=== PATIENT | male | born 1960 | race Caucasian/White ===

== ENCOUNTER 2019-02-28 15:55 | Outpatient (CLI) | payer OTHER ==
[2019-02-28 18:04] LABS: ALT (SGPT) 20 U/L (8-55); AST (SGOT) 14 U/L (5-34); Albumin 4.5 g/dL (3.5-5.0); Alkaline Phosphatase 127 U/L (40-150); Bilirubin, Direct 0.1 mg/dL (0.1-0.3); Bilirubin, Total 0.3 mg/dL (0.2-1.2); Protein, Total 7.2 g/dL (6.0-8.3)
== END 2019-02-28 15:56 | disposition home or self-care (01) ==
LOC: LABBT 15:55
PROVIDERS: ATTEND Surgery
DX: Z01.818 Encounter for other preprocedural examination (principal); K80.20 Calculus of gallbladder without cholecystitis without obstruction
CPT/HCPCS: 80076; 93005; 93010

== ENCOUNTER 2019-03-01 10:53 | Day surgery (SDC) | payer OTHER ==
[2019-02-28 16:20] VITALS: BMI 24.5
[2019-03-01] MEDS ORDERED: Sodium Chloride 0.9% 100 ML ONE (11:15)
[2019-03-01] MEDS ORDERED: cefOXitin 2 GM VIAL ONE (11:15)
[2019-03-01] MEDS ORDERED: Bupivacaine/Epinephrine 0.25% 30 ML VIAL ONE (11:35)
[2019-03-01] MEDS ORDERED: Fentanyl 100 MCG/2 ML VIAL ONE ×2 (13:19→14:28)
--- NOTE | 2019-03-01 13:41 | OP ---
DATE OF PROCEDURE: 03/01/2019 PREOPERATIVE DIAGNOSIS: Symptomatic cholelithiasis. PROCEDURE PERFORMED: Laparoscopic cholecystectomy. INDICATIONS: A 58-year-old male, having episodic right upper quadrant pain worse after eating, especially fatty food. Ultrasound shows sludge ball. FINDINGS: He had a distended gallbladder with some thickening of the wall, small caliber cystic duct. DESCRIPTION OF PROCEDURE: After informed consent was obtained, the patient was taken to the operating room, given general endotracheal anesthesia, placed in the supine position. Abdomen was prepped and draped in usual fashion. Local anesthesia infiltrated subcutaneously and deep. A subumbilical incision was performed. Subcu divided sharply. Fascia was grasped with 2 stay sutures of 0 Vicryl placed in each side of midline. Midline incised. Digital palpation revealed no local adhesions. A blunt 12 mm trocar inserted. Pneumoperitoneum was created to a pressure of 15 mmHg. Zero-degree laparoscope inserted under direct vision. Three 5 mm ports were placed subcostally. Gallbladder grasped, advanced superiorly. Peritoneum lysed distally to reveal cystic duct and artery. These were dissected out, triply ligated with hemoclips and divided. The gallbladder removed from its fossa utilizing electrocautery, removed from the abdomen through the umbilical port. Hemostasis assured. Trocars and retractors removed. Fascia closed with interrupted 0 Vicryl suture. Skin closed with interrupted 4-0 Rapide. Dermabond applied. The patient tolerated the procedure well, transferred to Recovery in good condition. Sponge and needle count verified, correct x2. Job ID: [id number]
== END 2019-03-01 15:20 | disposition home or self-care (01) ==
LOC: SDC 10:53
PROVIDERS: ATTEND Surgery
PROC: 0FT44ZZ Resection of Gallbladder, Percutaneous Endoscopic Approach (ICD-10-PCS; principal; 2019-03-01)
DX: K81.1 Chronic cholecystitis (principal); J45.909 Unspecified asthma, uncomplicated; K21.9 Gastro-esophageal reflux disease without esophagitis; Z85.46 Personal history of malignant neoplasm of prostate; Z87.891 Personal history of nicotine dependence; Z79.82 Long term (current) use of aspirin; Z79.899 Other long term (current) drug therapy
CPT/HCPCS: 88304; J0694; J3010; J3490

== ENCOUNTER 2019-04-22 11:56 | Inpatient (IN) | payer SELFPAY ==
[2019-04-22] MEDS ORDERED: Iopamidol 370 76% 100 ML VIAL ONE (13:03)
--- NOTE | 2019-04-22 13:35 | RAD ---
EXAM: Chest 2 views: HISTORY: 30 pound weight loss and lethargy for 6 weeks COMPARISON: 02/26/2019 FINDINGS: There is a normal-sized cardiomediastinal silhouette. There is no evidence of consolidation, mass, or pleural effusion. Hardware is seen in the cervical spine. IMPRESSION: No evidence of acute cardiopulmonary disease
[2019-04-22 13:36] LABS: #Basophils 0.3 thou/uL (0.0-0.2); #Eosinphils 0.1 thou/uL (0.0-0.7); #Lymphocytes 1.1 thou/uL (1.20-3.40); #Monocytes 0.9 thou/uL (0.11-0.59); #Neutrophils 9.2 thou/uL (1.40-6.50); %Basophils 2.8 % (0.0-1.0); %Eosinophils 0.9 % (0.0-10.0); %Lymphocytes 9.3 % (21.0-51.0); %Monocytes 7.5 % (0.0-10.0); %Neutrophils 79.5 % (42.0-75.0); Hemoglobin 13.3 g/dL (14.0-18.0); Mean Corpuscular HGB CONC 34.4 g/dL (32.0-36.0); Mean Corpuscular Hemoglobin 29.3 pg (27.0-31.0); Mean Corpuscular Volume 85.3 fL (78.0-98.0); Mean Platelet Volume 7.9 fL (7.4-10.4); Platelet Count 232 thou/uL (130-400); RBC Distribution Width 12.2 % (11.5-14.5); Red Blood Cell (RBC) Count 4.54 mill/uL (4.70-6.10); White Blood Cell (WBC) Count 11.6 thou/uL (4.8-10.8)
[2019-04-22 14:20] LABS: ALT (SGPT) 37 U/L (8-55); AST (SGOT) 22 U/L (5-34); Albumin 3.8 g/dL (3.5-5.0); Alkaline Phosphatase 565 U/L (40-150); Anion Gap 23 mmol/L (10-20); BUN (Urea Nitrogen) 18 mg/dL (8.4-25.7); Bilirubin, Total 0.3 mg/dL (0.2-1.2); CK (CPK) 27 U/L (30-200); Calc. Creatinine Clearance 0 mL/min (70-130); Calcium 10.3 mg/dL (7.8-10.44); Carbon Dioxide 15 mmol/L (22-29); Chloride 95 mmol/L (98-107); Estimated GFR-MDRD 72; Glucose 438 mg/dL (70-105); Lipase 60 U/L (8-78); Magnesium 1.8 mg/dL (1.6-2.6); Protein, Total 6.8 g/dL (6.0-8.3); Sodium 128 mmol/L (136-145)
[2019-04-22 14:41] LABS: CKMB 1.1 ng/mL (0-6.6)
[2019-04-22 15:13] LABS: Bilirubin Small (Negative); Blood, Urine Negative (Negative); Glucose, Urine (Dipstick) 500 mg/dL (Negative); Leukocyte Negative (Negative); Nitrite Negative (Negative); Protein, Urine (Dipstick) Negative (Neg-Trace); Urobilinogen 0.2 mg/dL (Less than 2)
[2019-04-22 15:14] LABS: Clarity Hazy (Clear)
--- NOTE | 2019-04-22 15:25 | CT ---
EXAM: CTA of the chest HISTORY: Gallbladder surgery 6 weeks ago with shortness of breath and elevated d-dimer COMPARISON: None TECHNIQUE: Multiple contiguous axial images were obtained a CTA of the chest with contrast per pulmon abel embolism protocol. 3-D oblique MIP reformats and direct coronal reformats were performed. FINDINGS: HEART: Normal in size without focal cardiac abnormality. No shift of the interventricular septum is s een. PULMONARY ARTERIES: Bilateral lower lobe pulmonary artery emboli. MEDIASTINUM: No hilar or mediastinal lymphadenopathy. LUNGS: No infiltrates are seen. A noncalcified 4 mm nodule is seen in the right upper lobe. A calcifi ed granuloma is seen in the left lower lobe. PLEURAL SPACE: No pleural effusion or pneumothorax. CHEST WALL SOFT TISSUES: Unremarkable VISUALIZED OSSEOUS STRUCTURES: Unremarkable VISUALIZED SUBDIAPHRAGMATIC STRUCTURES: Multiple scattered hypodensities in the liver are suspicious for metastatic disease. Alternatively, these could represent multifocal abscesses in the liver. There is a right renal cyst. There is hyperplasia of both adrenal glands. IMPRESSION: 1. Bilateral pulmonary emboli. 2. Multiple hepatic hypodensities are concerning for metastatic disease. Dr. Kauffman notified of findings at 3:22 PM on 04/22/2019
[2019-04-22 15:42] LABS: PTT 23.5 SEC (22.9-36.1); Prothrombin Time 12.8 SEC (12.0-14.7)
[2019-04-22] MEDS ORDERED: Enoxaparin Sodium 60 MG/0.6 ML SYRINGE ONE (16:36)
[2019-04-22 17:51] LABS: Troponin I 0.038 ng/mL (< 0.028)
[2019-04-22] MEDS ORDERED: Insulin Regular 300 UNITS/3 ML VIAL ONE (18:00)
[2019-04-22 20:41] LABS: Troponin I 0.055 ng/mL (< 0.028)
[2019-04-22] MEDS ORDERED: Sodium Chloride 0.9% 1,000 ML IV SCH (20:55)
[2019-04-22 21:10] VITALS: BMI 20.9
--- NOTE | 2019-04-23 01:23 | PDOC.FPRHP ---
- History of Present Illness Chief Complaint: Bilateral PE's, Liver Lesions History of Present Illness: Pt is a 59 yo male with PMH significant for Prostate cancer with a prostectomy who presents with 6 weeks of increasing fatigue. Fatigue started prior to his cholecystectomy 6 weeks ago by Nini. Pt thought he would regain strength after procedure but continued to decompensate. During this time he lost about 31#'s. He followed up with Dr. Lee's team who found him have a low TSH, prompting him to see ENT to assess his thyroid. At this time ENT noticed Alk Phos elevation, hypercalcemia were elevated on previous labwork, due to his hx of prostate cancer they sent him to the ED. At [facility] he was found to have an elevated D-Dimer prompting a CTA chest revealing bilateral PE's. He was started on therapeutic lovenox and transferred to [facility]. Consequently, lesions were noted in liver. He was also noted to have hyperglycemai an elevated hydroxybuterate, polyuria, polydipsea - never diagnosed with diabetes in the past. Pt within last month went on a trip to [place] by car. He states on the trip he had increased shortness of breath. He denies SOB, chest pain, LE edema/pain, abdominal pain, diarrhea, constipation , N/V. He does endorse decreased appetite, weight loss noted above. Last year he had elevated PSA prompting radiation therapy for 8 weeks, malignancy was never found but radiation was directed at suspected location. PSA ended up decreasing and repeat at 3,6,9 months showed low levels. ED Course: Direct Admission - Allergies/Adverse Reactions Allergies Allergy/AdvReac Type Severity Reaction Status Date / Time rocuronium Allergy Severe Anaphylaxis Verified 04/22/19 23:46 - Home Medications Medication Instructions Recorded Confirmed Type Aspirin [Aspir-Low] 81 mg PO DAILY 02/28/19 04/22/19 History Fexofenadine HCl [Paulette Allergy] 180 mg PO DAILY 02/28/19 04/22/19 History Fish Oil 1,000 mg PO DAILY 02/28/19 04/22/19 History Niacin (Inositol Niacinate) 2 tab PO DAILY 02/28/19 04/22/19 History [Niacin 500 mg Capsule] Omeprazole 20 mg PO BID 02/28/19 04/22/19 History Simvastatin [Zocor] 10 mg PO HS 02/28/19 04/22/19 History Multivitamin With Minerals [Men's 1 tablet PO DAILY 04/22/19 04/22/19 History One Daily] - History PMHx: Prostate Cancer with Prostatectomy, radiation multiple years later due to elevated PSA in 2017 PSHx: Prostatectomy, Cholecystectomy FHx: non-contributory Social: quit smoking December 2018 - 1ppd at most, 1 drink per day, no drugs - Review of Systems General: reports: weight/appetite/sleep changes. denies: fever/chills ENT: denies: nasal congestion, rhinorrhea Respiratory: reports: shortness of breath (with exertion). denies: cough, congestion Cardiovascular: denies: chest pain, palpitation, edema Gastrointestinal: denies: nausea, vomiting, diarrhea, constipation, abdominal pain Genitourinary: reports: polyuria. denies: incontinence Skin: denies: rashes, lesions Musculoskeletal: denies: pain, tenderness Neurological: reports: weakness. denies: numbness, syncope - Vital signs BP: [156/74] HR: [95] RR: [18] Tmax: [98.4] Pox: [96%]% on [RA] Wt: [60.7 kg] - Physical Exam Constitutional: NAD, awake, alert and oriented, well developed HEENT: PERRLA, EOMI Neck: FROM, trachea midline Heart: RRR, normal S1/S2, no edema Lungs: CTAB, no respiratory distress, good air movement, no wheezing Abdomen: soft, non-tender, bowel sounds present, no masses/distention Musculoskeletal: normal structure, ROM grossly normal Neurological: no focal deficit, normal sensation Skin: no rash/lesions, capillary refill <2 seconds Heme/Lymphatic: no purpura, no petechia Psychiatric: good judgment and insight, intact recent and remote memory FMR H&P: Results - Labs Result Diagrams: 04/23/19 02:27 04/23/19 08:28 Lab results: WBC 11.6 thou/uL (4.8-10.8) H 04/22/19 13:15 Hgb 13.3 g/dL (14.0-18.0) L 04/22/19 13:15 Hct 38.7 % (42.0-52.0) L 04/22/19 13:15 MCV 85.3 fL (78.0-98.0) 04/22/19 13:15 Plt Count 232 thou/uL (130-400) 04/22/19 13:15 Neutrophils % 79.5 % (42.0-75.0) H 04/22/19 13:15 Sodium 128 mmol/L (136-145) L 04/22/19 13:15 Potassium 5.0 mmol/L (3.5-5.1) 04/22/19 13:15 Chloride 95 mmol/L (98-107) L 04/22/19 13:15 Carbon Dioxide 15 mmol/L (22-29) L 04/22/19 13:15 BUN 18 mg/dL (8.4-25.7) 04/22/19 13:15 Creatinine 1.05 mg/dL (0.7-1.3) 04/22/19 13:15 Glucose 438 mg/dL (70-105) H 04/22/19 13:15 Lactic Acid 1.0 mmol/L (0.5-2.2) 04/22/19 13:15 Calcium 10.3 mg/dL (7.8-10.44) 04/22/19 13:15 Total Bilirubin 0.3 mg/dL (0.2-1.2) 04/22/19 13:15 AST 22 U/L (5-34) 04/22/19 13:15 ALT 37 U/L (8-55) 04/22/19 13:15 Alkaline Phosphatase 565 U/L (40-150) H 04/22/19 13:15 Creatine Kinase 27 U/L (30-200) L 04/22/19 13:15 CK-MB (CK-2) 1.1 ng/mL (0-6.6) 04/22/19 13:15 Serum Total Protein 6.8 g/dL (6.0-8.3) 04/22/19 13:15 Albumin 3.8 g/dL (3.5-5.0) 04/22/19 13:15 Lipase 60 U/L (8-78) 04/22/19 13:15 Urine Ketones > or equal to 80 mg/dL (Negative) A 04/22/19 15:02 Urine Blood Negative (Negative) 04/22/19 15:02 Urine Nitrite Negative (Negative) 04/22/19 15:02 Ur Leukocyte Esterase Negative (Negative) 04/22/19 15:02 FMR H&P: A/P - Problem List (1) Hyperglycemia Current Visit: Yes Status: Acute Code(s): R73.9 - HYPERGLYCEMIA, UNSPECIFIED (2) Bilateral pulmonary embolism Current Visit: Yes Status: Acute Code(s): I26.99 - OTHER PULMONARY EMBOLISM WITHOUT ACUTE COR PULMONALE (3) Low TSH level Current Visit: Yes Status: Acute Code(s): R79.89 - OTHER SPECIFIED ABNORMAL FINDINGS OF BLOOD CHEMISTRY (4) Elevated beta-hydroxybutyrate Current Visit: Yes Status: Acute Code(s): R78.89 - FINDING OF OTH SUBSTANCES , NOT NORMALLY FOUND IN BLOOD (5) Elevated alkaline phosphatase level Current Visit: Yes Status: Acute Code(s): R74.8 - ABNORMAL LEVELS OF OTHER SERUM ENZYMES (6) Hypercalcemia Current Visit: Yes Status: Acute Code(s): E83.52 - HYPERCALCEMIA (7) Hx of prostatectomy Current Visit: Yes Status: Acute Code(s): Z90.79 - ACQUIRED ABSENCE OF OTHER GENITAL ORGAN(S) (8) Hx of prostatic malignancy Current Visit: Yes Status: Acute Code(s): Z85.46 - PERSONAL HISTORY OF MALIGNANT NEOPLASM OF PROSTATE (9) Elevated troponin Current Visit: Yes Status: Acute Code(s): R74.8 - ABNORMAL LEVELS OF OTHER SERUM ENZYMES - Plan Pt is a 59 yo male with PMH significant for prostate cancer with prostatectomy who was found to have new onset DM with gap, bilateral PE's, low TSH level, elevated alk phosph/hypercalcemia. # Bilateral PE's [place] - recent long trip. Possible pt has recurrence of cancer. He does have new lesions in liver noted on CTA chest. PE's on CTA chest - continue therapeutic lovenox - bilateral doppler LE # Elevated Alk Phosphate # Hypercalcemia - mild - monitor hypercalcemia - alk phos potentially secondary to recurrence of prostate cancer/mets # Liver Lesions - consider CT abdomen w/ contrast # Elevated Trops Trops int x 3. Did not continue rise on third trop - likely demand ischemia secondary to PE # Low TSH FT4, FT3 wnl - monitor, he does have fatigue - could be possibel cause # DM New - Onset Polyuria, Polydipsea, elevated beta hydroxybutyrate, hyperglycemia - consider a1c - pending VBG, repeat BMP # Elevated BP - Monitor Diet: Diabetic Diet Fluids: LR 200 mls/hr Code: Full FMR H&P: Upper Level - Pertinent history 59 yo M w/ PMH of prostate ca post prostatectomy and radiation and recent cholecystectomy presents for increasing sob, fatigue, weight loss. Pt reports he has had approx 30lbs unintentional weight loss over the last 6 weeks since his cholecystectomy. He was evaluated in OP setting and found to have decreased TSH and sent for ent evaluation. ENT discovered elevated alk phos, and hypercalcemia and he was sent for additional workup. On arrival to ED pt had dimer that was elevated and subsequent CTA which showed bilateral PEs and lesions on his liver concerning for metastatic disease. He was also noted to be hyperglycemic in ED @ 480 and was given rapid acting insulin and IVF. Pt noted to have elvated b hydroxybutyrate and ketones in urine. On arrival pts gap 18 and decreased to 16. Stat VBG showed mild acidemia @ 7.29. He was rebolused IVF and continued on 200ml/hr of LR and given 10U SC long acting insulin. - Pertinent findings ROS: As above PE: GEN:NAD resting comfortably in bed. HEENT: NCAT EOMI CV: RRR No MRG Respiratory: Normal effort and rate, lungs clear to auscultation b/l. No increased work of breathing. Abd: Soft NTND Neuro: No focal deficit - Plan Date/Time: 04/23/19 0123 IJian DO, have evaluated this patient and agree with findings/ plan as outlined by regulatory internship resident. Pertinent changes/additions are listed here. 1) Mild DKA: VBG 7.29 - s/p rapid acting insulin and IVF, will rx long acting insulin and cont aggressive IVF resuscitation - recheck BMP in 3 hours and if elevated AG, consider transfer to IMCU for insulin gtt - no previous dx given rapid progression and liver lesions with previous cholecystectomy for ruq pain, consider pancreatic malignancy 2) b/l pes - with liver lesions concerning for metastatic disease - lovenox therpeutic 3) Low TSH: - normal t3 t4 - hyperthyroid possible but given acute illness and normal t3, t4 repeat after pt stable for reassessment 4) AG acidosis: from elevated BG/DKA recent Gap 16 w/in margin of error and albumin normal - repeat in 3-4 hours, consider drip if gap not closed 5) elevated troponin: demand from b/l PEs, indeterminant - therapeutic lovenox for PEs 6) Hypercalcemia and elevated alk phos - likely from bony metasteses - imaging tomorrow for further evaluation Dispo: Guarded. Findings concerning for metastatic disease and mild DKA. RX and consider transfer to IM if AG not closed on repeat BMP. Cont Aggressive IVF resuscitation, therapeutic lovenox and monitor closely. Addendum - Attending - Attending Attestation Date/Time: 04/23/19 1251 I personally evaluated the patient and discussed the management with Dr. Slaughter /Eyad. I agree with the History, Examination, Assessment and Plan documented above with any addition or exceptions noted below. Patient here for multiple acute issues. He has diagnosis of acute VTE with coexisiting DVTs. This may have happened several days to more than a week ago. He is not requiring O2 and is hemodynamically stable. He will continue on Lovenox for now. He also has new liver lesions that are concerning for metastatic disease in the setting of history of malignancy. We will obtain CT A/ P to further evaluate for malignancy. Patient also had mild DKA on admission that was not picked up by the ED. Fortunately, IV fluid hydration, short acting insulin and close monitoring got himm out of DKA fairly quickly. Will initiate insulin regimen. Further workup and treatment pending CT results later today.
[2019-04-23] MEDS ORDERED: Acetaminophen 325 MG TAB PO PRN (01:27)
[2019-04-23] MEDS ORDERED: Ondansetron ODT 4 MG TAB PO PRN (01:27)
[2019-04-23] MEDS ORDERED: Lactated Ringer's 1,000 ML IV SCH ×2 (02:45→03:00)
[2019-04-23] MEDS ORDERED: Insulin Glargine 10 UNITS in Pre-Filled Syringe 1 EACH SC ONE (02:46)
[2019-04-23 03:18] LABS: Actual Bicarbonate (HCO3v) 15 mEq/L (22-28); Analyzer IN Cardio OR; Base Excess -10.5 mEq/L (-2.0 to +3.0); Calcium, Ionized 1.29 mmol/L (1.16-1.32); Chloride (ABG LAB) 99 mmol/L (98-106); Hemoglobin (Hb) 13.3 g/dL (13.1-17.2); Potassium - ABG Lab 4.61 mmol/L (3.70-5.30); Sodium 132.7 mmol/L (133-146); pH (venous) 7.29 (7.32-7.43)
[2019-04-23] MEDS ORDERED: Calcium Carbonate 500 MG ChewTAB PO PRN (03:20)
[2019-04-23 03:23] LABS: Band 6 % (5-11); Hemoglobin 12.9 g/dL (14.0-18.0); Lymphocytes 12 % (21-51); MDiff Complete? YES; Mean Corpuscular HGB CONC 34.2 g/dL (32.0-36.0); Mean Corpuscular Volume 87.8 fL (78.0-98.0); Monocytes 12 % (0-10); Neutrophil 70 % (42-75); Platelet Count 247 thou/uL (130-400); Platelet Morphology Comment Appears Adequate; RBC Distribution Width 12.2 % (11.5-14.5); Red Blood Cell (RBC) Count 4.29 mill/uL (4.70-6.10); White Blood Cell (WBC) Count 11.9 thou/uL (4.8-10.8)
[2019-04-23 03:24] LABS: ALT (SGPT) 37 U/L (8-55); AST (SGOT) 26 U/L (5-34); Albumin 3.4 g/dL (3.5-5.0); Alkaline Phosphatase 524 U/L (40-150); Anion Gap 21 mmol/L (10-20); BUN (Urea Nitrogen) 16 mg/dL (8.4-25.7); Bilirubin, Total 0.3 mg/dL (0.2-1.2); Calc. Creatinine Clearance 76 mL/min (70-130); Calcium 9.7 mg/dL (7.8-10.44); Carbon Dioxide 15 mmol/L (22-29); Chloride 101 mmol/L (98-107); Estimated GFR-MDRD 87; Globulin 2.9 g/dL (2.4-3.5); Glucose 326 mg/dL (70-105); Potassium 4.7 mmol/L (3.5-5.1); Protein, Total 6.3 g/dL (6.0-8.3); Sodium 132 mmol/L (136-145); Troponin I 0.032 ng/mL (< 0.028)
[2019-04-23] MEDS ORDERED: Insulin Glargine 10 UNITS in Pre-Filled Syringe 1 EACH SC SCH (03:30)
[2019-04-23] MEDS: Lactated Ringer's 1,000 ML IV SCH ×4 (03:34→20:46)
--- NOTE | 2019-04-23 08:29 | ULT ---
Bilateral lower extremity venous Doppler ultrasound: 04/23/2019 HISTORY: Evaluate for DVT, pulmonary embolism noted on the CT angiogram of the chest performed 019 TECHNIQUE: Multiplanar grayscale sonographic imaging of the venous structures of bilateral lower extr emities obtained with color flow and spectral analysis FINDINGS: Bilateral common femoral veins, greater saphenous veins, profunda femoral veins, femoral ve ins, and popliteal veins are patent. No evidence for deep venous thrombosis is seen involving either lower extremity. There is thrombus within bilateral posterior tibial veins. IMPRESSION: No evidence for deep venous thrombosis. Clot is seen within bilateral posterior tibial ve ins.
[2019-04-23 08:50] LABS: Hemoglobin A1c 11.5 % (4.0-6.0)
[2019-04-23 08:57] LABS: Anion Gap 16 mmol/L (10-20); BUN (Urea Nitrogen) 12 mg/dL (8.4-25.7); Calc. Creatinine Clearance 85 mL/min (70-130); Calcium 9.6 mg/dL (7.8-10.44); Carbon Dioxide 18 mmol/L (22-29); Chloride 102 mmol/L (98-107); Estimated GFR-MDRD Greater than 90; Glucose 247 mg/dL (70-105); Potassium 4.2 mmol/L (3.5-5.1); Sodium 132 mmol/L (136-145)
[2019-04-23] MEDS ORDERED: Iopamidol 370 76% 100 ML VIAL ONE (09:02)
[2019-04-23] MEDS ORDERED: Dextrose 50% Abboject 50 ML SYRINGE SLOW IVP PRN (09:17)
[2019-04-23] MEDS ORDERED: Dextrose 5% in Water 1,000 ML IV PRN (09:17)
[2019-04-23] MEDS: Niacin 500 MG TAB PO SCH (09:37)
[2019-04-23] MEDS: Multivitamin W/ Minerals 1 TAB PO SCH (09:37)
[2019-04-23] MEDS: Aspirin 81 mg Enteric Coated Tablet PO SCH (09:37)
[2019-04-23] MEDS: Fish Oil 1,000 MG CAP PO SCH (09:37)
[2019-04-23] MEDS: Enoxaparin Sodium 60 MG/0.6 ML SYRINGE SC SCH ×2 (09:38→20:41)
[2019-04-23] MEDS: Loratadine 10 MG TAB PO SCH (09:38)
[2019-04-23] MEDS ORDERED: Insulin Regular 300 UNITS/3 ML VIAL SC SCH (09:45)
--- NOTE | 2019-04-23 09:58 | PDOC.FM ---
- Subjective Subjective: Pt states he is feeling well today. Denies any shortness of breath, chest pain, palpitations. Notes some continuation of overall fatigue but with interval improvement. - Objective Vital Signs & Weight: Vital Signs (12 hours) Temp Pulse Resp BP Pulse Ox 04/23/19 08:00 98.5 F 88 18 168/79 H 98 04/23/19 04:00 98.7 F 84 22 H 162/78 H 96 Weight Weight 60.781 kg I&O: 04/22/19 04/23/19 04/24/19 06:59 06:59 06:59 Intake Total 2780 Output Total 1000 Balance 1780 Result Diagrams: 04/23/19 02:27 04/23/19 08:28 Phys Exam - Physical Examination Constitutional: NAD HEENT: PERRLA, moist MMs, sclera anicteric Neck: no nodes, full ROM Respiratory: no rales, no rhonchi, clear to auscultation bilateral Cardiovascular: RRR, no significant murmur Gastrointestinal: soft, non-tender, no distention, positive bowel sounds Musculoskeletal: no edema, pulses present Neurological: non-focal, moves all 4 limbs Lymphatic: no nodes Psychiatric: normal affect, A&O x 3 Skin: no rash, cap refill <2 seconds Dx/Plan (1) Bilateral pulmonary embolism Code(s): I26.99 - OTHER PULMONARY EMBOLISM WITHOUT ACUTE COR PULMONALE Status : Acute (2) Elevated alkaline phosphatase level Code(s): R74.8 - ABNORMAL LEVELS OF OTHER SERUM ENZYMES Status: Acute (3) Elevated beta-hydroxybutyrate Code(s): R78.89 - FINDING OF OTH SUBSTANCES, NOT NORMALLY FOUND IN BLOOD Status: Acute (4) Hx of prostatic malignancy Code(s): Z85.46 - PERSONAL HISTORY OF MALIGNANT NEOPLASM OF PROSTATE Status: Acute (5) Hyperglycemia Code(s): R73.9 - HYPERGLYCEMIA, UNSPECIFIED Status: Acute - Plan Plan: Bilateral Pulmonary Embolism [place] - recent long trip. Possible pt has recurrence of cancer. He does have new lesions in liver noted on CTA chest. PE's on CTA chest - continue therapeutic lovenox - pt is self pay, will likely need transition to coumadin following bridging - bilateral doppler LE - bilateral tibial vein thrombus Liver Lesions - CT abdomen w/ contrast today Elevated Alk Phosphate Hypercalcemia - mild - monitor hypercalcemia - alk phos potentially secondary to recurrence of prostate cancer/mets Elevated Trops Trops int x 3. down trended - likely demand ischemia secondary to PE Low TSH FT4, FT3 wnl - monitor, could be recent thyroiditis and now with down trending T3/T4 transiently in normal range DM New - Onset Polyuria, Polydipsea, elevated beta hydroxybutyrate, hyperglycemia, anion gap metabolic acidosis - Mild DKA upon presentation A1c several months ago: 6.4 - Fluid resuscitation underway, NPO - 10 units glargine and 10 units regular given at this point - q2hr Accuchecks w/ hypoglycemia protocol - Gap closed - will start regimen of 70/30 and resume diet Elevated BP - Monitor Diet: Diabetic Diet Fluids: LR 200 mls/hr Code: Full Addendum - Attending - Attending Attestation Date/Time: 04/23/19 1302 I personally evaluated the patient and discussed the management with Dr. Russell. I agree with the History, Examination, Assessment and Plan documented above with any addition or exceptions noted below. See H/P addendum for full details.
[2019-04-23] MEDS: HumaLOG 300 UNITS/3 ML VIAL SC PRN ×4 (09:59→23:46)
[2019-04-23 13:45] LABS: Anion Gap 13 mmol/L (10-20); BUN (Urea Nitrogen) 10 mg/dL (8.4-25.7); Calc. Creatinine Clearance 88 mL/min (70-130); Calcium 10.4 mg/dL (7.8-10.44); Carbon Dioxide 23 mmol/L (22-29); Chloride 100 mmol/L (98-107); Estimated GFR-MDRD Greater than 90; Glucose 144 mg/dL (70-105); Potassium 4.1 mmol/L (3.5-5.1); Sodium 132 mmol/L (136-145)
--- NOTE | 2019-04-23 14:31 | CT ---
CLINICAL HISTORY: Hepatic masses seen on prior imaging. TECHNIQUE: Multiple contiguous axial images were obtained and a CT of the abdomen without and with IV contrast. Postcontrast images were obtained in the arterial and portal venous phases. Coronal and sagittal reformats were performed. COMPARISON: CTA chest 04/22/2019 FINDINGS: Liver: Size: Normal. Contour: Smooth. Mass: Innumerable scattered hypodensities in both lobes of the liver measuring up to 1.9 cm in size w ith peripheral enhancement. Gallbladder and biliary system: Removed No biliary ductal dilatation. Spleen: Normal. Pancreas: 2.6 cm hypodense mass in the pancreatic head. There is dilatation of the pancreatic duct in the body and tail of the pancreas. Kidneys: 1.5 cm hyperdense right renal cyst Adrenal glands: Bilateral hyperplasia without focal mass. GI tract: Normal. Abdominal aorta and its major branches: Normal. Atherosclerotic calcifications in the aorta. Peritoneum/retroperitoneum: Normal. Trace free fluid in the pelvis. No adenopathy. Body wall and musculoskeletal: Normal. Visualized lower thorax: See dedicated CTA chest from yesterday. IMPRESSION: 1. Pancreatic mass with ductal dilatation most likely represents a pancreatic adenocarcinoma. 2. There appear to be innumerable hepatic metastatic lesions.
[2019-04-23] MEDS: Simvastatin 5 MG TAB PO SCH (20:40)
[2019-04-23] MEDS: NPH, Human Insulin Isophane 300 UNIT/3 ML VIAL SC SCH (20:41)
[2019-04-24] MEDS: Lactated Ringer's 1,000 ML IV SCH (01:52)
--- NOTE | 2019-04-24 06:09 | PDOC.FM ---
- Subjective Subjective: Pt denies any complaints this morning. No shortness of breath, new bruising, or CP. Anxious to see what GI and onc have to say to day. - Objective Vital Signs & Weight: Vital Signs (12 hours) Temp Pulse Resp BP Pulse Ox 04/24/19 03:55 98.8 F 80 18 141/78 H 93 L 04/23/19 19:20 98.5 F 85 17 148/74 H 97 Weight Admit Weight 60.781 kg Weight 60.781 kg I&O: 04/22/19 04/23/19 04/24/19 06:59 06:59 06:59 Intake Total 2780 4875 Output Total 1000 3175 Balance 1780 1700 Result Diagrams: 04/24/19 09:30 04/24/19 05:16 Phys Exam - Physical Examination Constitutional: NAD HEENT: moist MMs Neck: full ROM Respiratory: no wheezing, no rales, no rhonchi, clear to auscultation bilateral Cardiovascular: RRR, no significant murmur Gastrointestinal: soft, positive bowel sounds Musculoskeletal: no edema, pulses present Neurological: non-focal, moves all 4 limbs Psychiatric: normal affect, A&O x 3 Skin: no rash Dx/Plan (1) Bilateral pulmonary embolism Code(s): I26.99 - OTHER PULMONARY EMBOLISM WITHOUT ACUTE COR PULMONALE Status : Acute (2) Elevated alkaline phosphatase level Code(s): R74.8 - ABNORMAL LEVELS OF OTHER SERUM ENZYMES Status: Acute (3) Elevated beta-hydroxybutyrate Code(s): R78.89 - FINDING OF OTH SUBSTANCES, NOT NORMALLY FOUND IN BLOOD Status: Acute (4) Hx of prostatic malignancy Code(s): Z85.46 - PERSONAL HISTORY OF MALIGNANT NEOPLASM OF PROSTATE Status: Acute (5) Hyperglycemia Code(s): R73.9 - HYPERGLYCEMIA, UNSPECIFIED Status: Acute - Plan Plan: Pancreatic Mass - CT abd/pelv yesterday: 2.6cm mass in head of pancreas w/ pancreatic duct dilation and innumerable masses in the liver consistent w/ mets - Discussed these findings with pt yesterday and they understand this likely represents adenocarcinoma of the pancreas - GI and oncology consulted this morning Bilateral Pulmonary Embolism - continue therapeutic lovenox - pt is self pay, will likely need transition to coumadin following bridging - bilateral doppler LE - bilateral tibial vein thrombus DM New - Onset Polyuria, Polydipsea, elevated beta hydroxybutyrate, hyperglycemia, anion gap metabolic acidosis - Mild DKA upon presentation A1c several months ago: 6.4 - Gap closed yesterday - Started on 6 units 70/30 BID - Required 11 units of SSI throughout day - After 24hr of SSI will correct daily 70/30 dosing - [employer] consulting for diabetic education Elevated Alk Phosphate Hypercalcemia - mild - monitor hypercalcemia Elevated Trops Trops int x 3. down trended - likely demand ischemia secondary to PE Low TSH FT4, FT3 wnl - monitor, could be recent thyroiditis and now with down trending T3/T4 transiently in normal range Elevated BP - Monitor Diet: Diabetic Diet Code: Full Dispo: Admit inpt: New finding of pancreatic mass yesterday. GI and oncology to consult today. Further titrating patient's insulin dosing. Cont LMWH bridging to coumadin. Addendum - Attending - Attending Attestation Date/Time: 04/24/19 1140 I personally evaluated the patient and discussed the management with Dr. Russell. I agree with the History, Examination, Assessment and Plan documented above with any addition or exceptions noted below. Patient here with b/l PE as well as likely pancreatic adenocarcinoma with mets to liver. Continue on lovenox. Needs bridge to coumadin once we no no surgery planned. Onc and GI on board. Awaiting decision on biopsy site.
[2019-04-24 06:14] LABS: Eosinophils 3 % (0-10); Hemoglobin 10.8 g/dL (14.0-18.0); Hypochromia SLIGHT = 6-15 cells (100X) (0-5/hpf); Lymphocytes 7 % (21-51); MDiff Complete? YES; Mean Corpuscular HGB CONC 34.3 g/dL (32.0-36.0); Mean Corpuscular Hemoglobin 29.7 pg (27.0-31.0); Mean Corpuscular Volume 86.8 fL (78.0-98.0); Mean Platelet Volume 7.4 fL (7.4-10.4); Monocytes 10 % (0-10); Neutrophil 80 % (42-75); Platelet Count 213 thou/uL (130-400); Platelet Morphology Comment Appears Adequate; Red Blood Cell (RBC) Count 3.65 mill/uL (4.70-6.10); White Blood Cell (WBC) Count 7.9 thou/uL (4.8-10.8)
[2019-04-24 07:01] LABS: ALT (SGPT) 26 U/L (8-55); AST (SGOT) 17 U/L (5-34); Albumin 2.7 g/dL (3.5-5.0); Alkaline Phosphatase 412 U/L (40-110); Anion Gap 13 mmol/L (10-20); Bilirubin, Total 0.3 mg/dL (0.2-1.2); Calc. Creatinine Clearance 98 mL/min (70-130); Calcium 9.4 mg/dL (7.8-10.44); Carbon Dioxide 21 mmol/L (22-29); Chloride 101 mmol/L (98-107); Estimated GFR-MDRD Greater than 90; Globulin 2.4 g/dL (2.4-3.5); Glucose 180 mg/dL (70-105); Potassium 3.3 mmol/L (3.5-5.1); Sodium 132 mmol/L (136-145)
[2019-04-24 07:08] LABS: Protein, Total 5.1 g/dL (6.0-8.3)
[2019-04-24 07:12] LABS: BUN (Urea Nitrogen) 8 mg/dL (8.4-25.7)
[2019-04-24] MEDS: Aspirin 81 mg Enteric Coated Tablet PO SCH (09:20)
[2019-04-24] MEDS: Fish Oil 1,000 MG CAP PO SCH (09:20)
[2019-04-24] MEDS: Loratadine 10 MG TAB PO SCH (09:20)
[2019-04-24] MEDS: Multivitamin W/ Minerals 1 TAB PO SCH (09:20)
[2019-04-24] MEDS: Niacin 500 MG TAB PO SCH (09:20)
[2019-04-24] MEDS: NPH, Human Insulin Isophane 300 UNIT/3 ML VIAL SC SCH ×2 (09:21→21:42)
[2019-04-24] MEDS: Enoxaparin Sodium 60 MG/0.6 ML SYRINGE SC SCH (09:21)
[2019-04-24] MEDS: HumaLOG 300 UNITS/3 ML VIAL SC PRN ×4 (09:23→21:38)
[2019-04-24] MEDS ORDERED: Warfarin Sodium 5 MG TAB PO SCH (09:30)
[2019-04-24 09:43] LABS: Hemoglobin 11.5 g/dL (14.0-18.0); Platelet Count 224 thou/uL (130-400)
[2019-04-24] MEDS ORDERED: Potassium Chloride 20 MEQ TAB PO SCH (09:45)
[2019-04-24 11:03] LABS: INR-International Normal Ratio 1.1; Prothrombin Time 14.4 SEC (12.0-14.7)
[2019-04-24] MEDS ORDERED: NPH, Human Insulin Isophane 300 UNIT/3 ML VIAL SC SCH ×2 (11:48→12:15)
[2019-04-24] MEDS: Simvastatin 5 MG TAB PO SCH (21:36)
[2019-04-25] MEDS: Lactated Ringer's 1,000 ML IV SCH (01:54)
[2019-04-25 05:22] LABS: INR-International Normal Ratio 1.1; PTT 26.7 SEC (22.9-36.1); Prothrombin Time 14.2 SEC (12.0-14.7)
[2019-04-25 05:32] LABS: Band 6 % (5-11); Eosinophils 2 % (0-10); Hemoglobin 10.7 g/dL (14.0-18.0); Lymphocytes 7 % (21-51); MDiff Complete? YES; Mean Corpuscular HGB CONC 35.2 g/dL (32.0-36.0); Mean Corpuscular Hemoglobin 30.4 pg (27.0-31.0); Mean Corpuscular Volume 86.3 fL (78.0-98.0); Monocytes 8 % (0-10); Neutrophil 77 % (42-75); Platelet Count 224 thou/uL (130-400); Platelet Morphology Comment Appears Adequate; RBC Distribution Width 11.8 % (11.5-14.5); Red Blood Cell (RBC) Count 3.51 mill/uL (4.70-6.10); White Blood Cell (WBC) Count 7.4 thou/uL (4.8-10.8)
[2019-04-25 05:36] LABS: ALT (SGPT) 25 U/L (8-55); AST (SGOT) 17 U/L (5-34); Albumin 2.7 g/dL (3.5-5.0); Alkaline Phosphatase 406 U/L (40-110); Anion Gap 10 mmol/L (10-20); BUN (Urea Nitrogen) 6 mg/dL (8.4-25.7); Bilirubin, Total 0.3 mg/dL (0.2-1.2); Calc. Creatinine Clearance 101 mL/min (70-130); Calcium 9.2 mg/dL (7.8-10.44); Carbon Dioxide 27 mmol/L (22-29); Chloride 100 mmol/L (98-107); Estimated GFR-MDRD Greater than 90; Globulin 2.4 g/dL (2.4-3.5); Glucose 162 mg/dL (70-105); Potassium 3.4 mmol/L (3.5-5.1); Protein, Total 5.1 g/dL (6.0-8.3); Sodium 134 mmol/L (136-145)
--- NOTE | 2019-04-25 05:58 | PDOC.FM ---
- Subjective Subjective: Pt feeling well today. Pt and with some confusion about plan going forward which was clarified and they agreed/understood. - Objective Vital Signs & Weight: Vital Signs (12 hours) Temp Pulse Resp BP BP Pulse Ox 04/25/19 03:47 99.2 F 79 18 147/67 H 97 04/24/19 23:42 99.4 F 04/24/19 20:00 100 04/24/19 19:35 99.8 F H 106 H 18 154/71 H 98 Weight Admit Weight 60.781 kg Weight 60.781 kg I&O: 04/23/19 04/24/19 04/25/19 06:59 06:59 06:59 Intake Total 2780 4875 3120 Output Total 1000 3175 3225 Balance 1780 1700 -105 Result Diagrams: 04/25/19 04:44 04/25/19 04:44 Phys Exam - Physical Examination Constitutional: NAD HEENT: moist MMs, sclera anicteric Neck: full ROM Respiratory: clear to auscultation bilateral No resp distress Cardiovascular: RRR, no significant murmur Gastrointestinal: soft, non-tender Musculoskeletal: no edema, pulses present Neurological: moves all 4 limbs Psychiatric: normal affect, A&O x 3 Skin: no rash, cap refill <2 seconds Dx/Plan (1) Bilateral pulmonary embolism Code(s): I26.99 - OTHER PULMONARY EMBOLISM WITHOUT ACUTE COR PULMONALE Status : Acute (2) Elevated alkaline phosphatase level Code(s): R74.8 - ABNORMAL LEVELS OF OTHER SERUM ENZYMES Status: Acute (3) Elevated beta-hydroxybutyrate Code(s): R78.89 - FINDING OF OTH SUBSTANCES, NOT NORMALLY FOUND IN BLOOD Status: Acute (4) Hx of prostatic malignancy Code(s): Z85.46 - PERSONAL HISTORY OF MALIGNANT NEOPLASM OF PROSTATE Status: Acute (5) Hyperglycemia Code(s): R73.9 - HYPERGLYCEMIA, UNSPECIFIED Status: Acute - Plan Plan: Pancreatic Mass - CT abd/pelv yesterday: 2.6cm mass in head of pancreas w/ pancreatic duct dilation and innumerable masses in the liver consistent w/ mets - Discussed these findings with pt yesterday and they understand this likely represents adenocarcinoma of the pancreas - GI and oncology consulted - Spoke with Dr. Buck yesterday, GI: recommended getting IR to perform biopsy of liver lesion for tissue diagnosis - Called IR: stated that they would be able to perform biopsy, however, w / pt receiving aspirin this morning will need to defer for several days - Will also need to hold lovenox 12-24hr prior to biopsy - Onc appropriately recommended tissue dx prior to meeting w/ pt Bilateral Pulmonary Embolism - continue therapeutic lovenox (will need to hold prior to biopsy) - pt is self pay, will likely need transition to coumadin following bridging and biopsy - consult CM for assistance in Rx financing - bilateral doppler LE - bilateral tibial vein thrombus DM New - Onset Polyuria, Polydipsea, elevated beta hydroxybutyrate, hyperglycemia, anion gap metabolic acidosis - Mild DKA upon presentation A1c several months ago: 6.4 - Gap closed yesterday - Started on 12 units 70/30 BID yesterday - Will recheck SSI usage this afternoon and readjust basal insulin dosing - 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 down trended - NSTEMI Type 2 2/2 likely demand ischemia secondary to PE Low TSH FT4, FT3 wnl - monitor, could be recent thyroiditis and now with down trending T3/T4 transiently in normal range Elevated BP - Monitor Diet: Diabetic Diet Code: Full Dispo: Admit inpt: New finding of pancreatic mass yesterday. No biopsy currently w/ recent aspirin use, will hold and plan for biopsy accordingly. Further titrating patient's insulin dosing. Cont LMWH bridging to coumadin post biopsy. Addendum - Attending - Attending Attestation Date/Time: 04/25/19 1120 I personally evaluated the patient and discussed the management with Dr. Russell. I agree with the History, Examination, Assessment and Plan documented above with any addition or exceptions noted below. Patient here and doing well. HDS from his PEs. We will be working with CM to set up outpatient biopsy and lovenox injections as he cannot undergo biopsy until Monday. There is no real reason to keep him in the hospital until that time if we can arrange for outpatient lovenox therapy. Will have conversations today about that potential.
--- NOTE | 2019-04-25 08:15 | CON ---
DATE OF CONSULTATION: REFERRING PHYSICIAN: Dr. Jalil Russell/Dr. Yandel Slaughter, [facility]. REASON FOR CONSULTATION: Abnormal CAT scan of the abdomen showing a pancreatic mass and also multiple liver spots indicative of possibly metastatic disease. HISTORY OF PRESENT ILLNESS: Tali Mathis is a very pleasant 59-year-old male, who is a very healthy individual. He has had a prostatectomy I believe in 2005 and has had a PSA level a year ago and had undergone radiation therapy. There is no documented evidence of prostate cancer except for the high PSA level. The patient is known to have hyperlipidemia and is on simvastatin. The patient is very healthy otherwise. The patient developed some vague abdominal discomfort across the upper abdomen approximately about 2 months ago. This happened in January. He also feels unpleasant and uncomfortable. He had no appetite. He was sent for abdominal sonogram. Sonogram showed biliary sludge, but at that time, the pancreas was not visualized because of the bowel gas. The patient underwent laparoscopic cholecystectomy by Dr. Ace Ramos on 03/01/2019. Even before surgery, he had no appetite, he was losing weight. Lost about 5 to 6 pounds before surgery. After surgery, he had no appetite , sick to his stomach. He has stopped eating for a while, except for the small bites of food. He lost 116 pounds. Apparently, he went to [place] for vacation in [place] and felt dyspneic. He came back to Dr. Marley's office and was referred to . From the ENT surgeon's office, he was sent to ER because of hypoxia. He had abdominal CAT scan, also chest CAT scan. The chest CAT scan showed evidence of pulmonary embolism and was started on Eliquis. The CAT scan of the abdomen showed a 2.7 cm size pancreatic mass and also multiple liver spots indicative of the liver metastases. The patient has lost nearly 30 pounds over the last 2 months. He denies any hematochezia, any melena. No dysphagia or odynophagia. His abdominal pain is very little except for some tightness or some fullness over the upper abdomen. There is no nausea or vomiting. No fever. No relevant history. ALLERGIES: ROCURONIUM HE BROKE OUT A RASH. SOCIAL HISTORY: The patient is a former smoker. Does not drink alcohol. No drug abuse. MEDICAL ILLNESSES: 1. Prostate cancer, status post prostatectomy. 2. High PSA level year ago and underwent radiation therapy. 3. Hyperlipidemia. No history of heart disease. No lung disease. No strokes. FAMILY HISTORY: Mother side uncle had colon cancer. No family history of pancreatic cancer. MEDICATION LIST: Reviewed. He was on Eliquis because of bilateral PE and was stopped today for potential biopsy of the liver lesions or pancreatic lesion on Monday. REVIEW OF SYSTEMS: Ten-point system review; CONSTITUTIONAL: Poor appetite, having abdominal pain (weight loss 33 pounds). No history of fever. He has been feeling weak and no exercise tolerance. HEAD: No chronic headache. No syncope. . ENT: No diplopia. No impaired vision. No hearing loss. No nose bleed. NECK: No stiffness or pain. LUNGS: No chronic coughing, hemoptysis, but he has been feeling short of breath recently. CARDIOVASCULAR: No chest pain. No palpitation. No dyspnea, orthopnea, or PND. GI: Abdominal pain, nausea, progressive weight loss. : History of prostate cancer, status post prostatectomy . NEUROLOGIC: Nonrelevant. ENDOCRINE: Nonrelevant. HEMATOLOGIC: Nonrelevant. PHYSICAL EXAMINATION: GENERAL: Appears comfortable, in no acute distress. VITAL SIGNS: He is afebrile. Pulse is 93, blood pressure 168/77. HEENT: Conjunctivae clear. NECK: Supple. No adenitis or thyromegaly noted. CARDIOVASCULAR: First and second heart sounds are normal. LUNGS: Clear to auscultation. ABDOMEN: Soft. Abdomen is nondistended. Abdomen is nontender. No organomegaly or masses. Bowel sounds normal. EXTREMITIES: Reveal no edema. LABORATORY DATA: From today, sodium 132, potassium 3.3, chloride 101, bicarb 21, BUN is 8, creatinine 0.69, glucose 180, calcium 9.4, bilirubin 0.3, AST 17, ALT 26, alkaline phosphatase 102, albumin is 2.7. CBC; WBC 7900, hemoglobin 10.8, hematocrit 31.6, MCV 88.8, platelet count 213,000, polymorphs 80, lymphocytes 7. An abdominal CAT scan showed bilateral liver lesions pancreatic mass. The CAT scan of the chest did show pulmonary embolism. He was on Eliquis and now is off Eliquis from today and he is on Lovenox. CLINICAL IMPRESSION: 1. A 59-year-old male with progressive weight loss, abdominal discomfort, nausea over the last 2 months. Had laparoscopic cholecystectomy in February of 2019. At that time, the sonogram visualized the pancreas. Based on the history and physical, it appears he has probable pancreatic cancer or liver metastases. 2. Pulmonary embolism, on Lovenox. 3. Prostate cancer, status post prostatectomy and status post radiation therapy. RECOMMENDATIONS: 1. Hold his Eliquis. 2. Agree with Lovenox for PE. 3. CT-guided liver biopsy or pancreatic mass biopsy on Monday. Also recommend Oncology input. Job ID: [id number]
[2019-04-25] MEDS: Niacin 500 MG TAB PO SCH (09:16)
[2019-04-25] MEDS: Fish Oil 1,000 MG CAP PO SCH (09:16)
[2019-04-25] MEDS: Multivitamin W/ Minerals 1 TAB PO SCH (09:16)
[2019-04-25] MEDS: Enoxaparin Sodium 60 MG/0.6 ML SYRINGE SC SCH (09:16)
[2019-04-25] MEDS: Loratadine 10 MG TAB PO SCH (09:17)
[2019-04-25] MEDS: NPH, Human Insulin Isophane 300 UNIT/3 ML VIAL SC SCH (09:18)
[2019-04-25] MEDS: HumaLOG 300 UNITS/3 ML VIAL SC PRN ×2 (12:50→17:25)
--- NOTE | 2019-04-25 13:54 | CON ---
DATE OF CONSULTATION: REASON FOR CONSULT: Metastatic disease. HISTORY OF PRESENT ILLNESS: Mr. Mathis is a 59-year-old male with a history of prostate cancer, status post prostatectomy and radiation, who had a recent cholecystectomy six weeks ago. He continued to feel poorly since that time with approximately 30-pound weight loss. He saw his primary care and was noted to have some abnormal labs. He eventually landed in the ER for abdominal pain and shortness of breath. He underwent a CT angio of his chest, which was positive for pulmonary emboli. He underwent a CT of his abdomen, which showed a 2.6 cm mass in the pancreatic head. There were innumerable hepatic lesions. The patient was initially on Eliquis, but transitioned to Lovenox in anticipation of a biopsy. He was started on aspirin, which he has taken during this hospitalization. The patient again admits to a 30-pound weight loss over the last eight weeks. He has had a significant fatigue and shortness of breath. Denies any abdominal pain, diarrhea, constipation, nausea, or vomiting. He was diagnosed with prostate cancer and prostatectomy in 2006. He had elevated PSA in 2017 and underwent radiation treatments with Dr. Jimenez. He has had a normal PSA since that time. PAST MEDICAL AND SURGICAL HISTORY: 1. Prostate cancer with prostatectomy and radiation. 2. Cholecystectomy. 3. Hyperlipidemia. ALLERGIES: ROCURONIUM. HOME MEDICATIONS: 1. Multivitamin. 2. Niacin. 3. Prilosec. 4. Simvastatin. FAMILY HISTORY: Colon cancer. The patient's last colonoscopy was about 2 years ago. SOCIAL HISTORY: He is , has three grown children. 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 REVIEW OF SYSTEMS: A 10-point review of systems is negative except for noted in HPI. PHYSICAL EXAMINATION: VITAL SIGNS: Temperature 98.2, pulse is 84, respiratory rate 18, BP is 165/77. He is 96% on room air. GENERAL: Well-developed, well-nourished male, in no acute distress. HEENT: Normocephalic and atraumatic. Pupils are equal and reactive to light. NECK: Supple. CV: Regular rate and rhythm. LUNGS: Clear. ABDOMEN: Soft and nontender. Bowel sounds are positive. He has no distention. No organomegaly. EXTREMITIES: No clubbing or cyanosis. SKIN: No rash. HEMATOLOGIC: No petechiae or purpura. NEUROLOGIC: Nonfocal. PSYCH: He is alert, oriented, and appropriate. PERTINENT LABS AND X-RAYS: Current WBCs are 7.4, hemoglobin 10.7, hematocrit 30.3, platelet count is 224,000, neutrophils 77, 6% bands, 7% lymphocytes. PT is 14.2, INR is 1.1, PTT is 26.7. Sodium is 134, potassium 3.4, chloride 100, CO2 is 25, BUN is 6, creatinine 0.67, calcium is 9.2, bilirubin is 0.3, AST 17, ALT is 25, alkaline phosphatase is 406. Serum total protein is 5.1, albumin 2.7, globulin 2.4. CEA is 1156 and CA19-9 is 18,337. ASSESSMENT: 1. Pancreatic mass with liver lesions. 2. Pulmonary emboli. DISCUSSION: The patient's elevated CA19-9 and pancreatic mass are consistent with a pancreatic cancer. Further tissue is required for final diagnosis. Unfortunately, the patient had aspirin this morning, so a biopsy of one of the liver lesions is planned for early next week. He will continue on Lovenox subcu injections for his pulmonary emboli. He can follow up in our clinic next week to discuss biopsy details and treatment options. We did discuss the likelihood that this is a pancreatic cancer and its prognosis and various treatment options. He will need at some point a MediPort. All questions were answered. We will be happy to take care of this pleasant gentleman. Thank you for the consult. Job ID: [id number]
[2019-04-25 14:03] VITALS: TEMP 97.9
[2019-04-25 16:42] VITALS: BP 163/77
[2019-04-25] MEDS ORDERED: HumuLIN 70/30 (300 UNITS/3 ML VIAL) SC SCH (21:00)
--- NOTE | 2019-04-26 12:53 | DIS ---
DATE OF ADMISSION: 04/22/2019 DATE OF DISCHARGE: 04/25/2019 ADMITTING ATTENDING: Gavin Velazquez MD RESIDENT: Jalil Russell DO CONSULTS: 1. Gastroenterology, Dr. Grubbs. 2. Oncology, Dr. Kerr. PROCEDURES PERFORMED: None. PRIMARY DIAGNOSES: Pancreatic mass likely secondary to pancreatic adenocarcinoma with mets to the liver, new onset diabetes, pulmonary embolism. SECONDARY DIAGNOSES: History of prostate cancer, gastroesophageal reflux disease, hyperlipidemia. DISCHARGE MEDICATIONS: 1. Fish oil 1000 mg daily. 2. Omeprazole 20 mg b.i.d. 3. Niacin 500 mg two tabs daily. 4. Zocor 10 mg at bedtime. 5. Aspirin 81 mg daily-hold until following CT-guided biopsy as directed by PCP. 6. Paulette 180 mg daily. 7. Multivitamin one tab daily. 8. Lovenox 60 mg subcu b.i.d., hold [address]-guided biopsy, resume as directed by PCP. 9. Humulin 70/30 of 15 units b.i.d. 10. Claritin 10 mg daily. HISTORY OF PRESENT ILLNESS AND HOSPITAL COURSE: A 59-year-old male presented to his PCP with complaints of increasing fatigue and shortness of breath. TSH was performed and was undetectable, however, with free T3 and T4 levels within normal range. The patient was recommended to see an ENT. The patient was on ENT the same day, who suggested that he go be seen by the emergency department. The patient went to the [facility] ER and was found to have bilateral pulmonary embolisms and a glucose in the 400s with ketones. CTA of the chest incidentally found innumerable masses in the liver as well. The patient was subsequently transferred to [place] for further workup and care. Upon arrival, the patient received 10 units of long-acting insulin and fluid resuscitation, which appropriately brought down the patient's glucose levels into the 200s. The patient was then started on 70/30 insulin and titrated throughout his stay. The day following his admission, the patient had an ultrasound of his bilateral lower extremities which showed bilateral clots and superficial veins within the posterior tibial vein. Upon admission, the patient was also started on therapeutic Lovenox at [address] mg [address] An abdominal CT was ordered to follow up on incidental liver findings, which showed a pancreatic mass with ductal dilation measuring 2.6 cm, felt most likely represent pancreatic adenocarcinoma. Imaging also again noted the innumerable hepatic masses, most likely suggestive of metastatic lesions. Gastroenterology and Oncology were consulted with these findings. Dr. Grubbs from Gastroenterology suggested a CT-guided biopsy for tissue analysis of the pancreatic mass or metastatic lesions. Radiology was called and noted that with the patient taking aspirin, he may need to be off it for [address]-guided biopsy could be done. The patient would also need Lovenox held 24 hours prior to the procedure. All these findings were discussed with the patient, who agreed to have the procedure performed on outpatient basis. On the day of his discharge, the patient was instructed on normal diabetic care including both have to measure his glucose levels and take his insulin. He met with a segregator and talked about the diabetic diet that he should adhere to. The patient was also instructed that he should have close followup with his PCP, Dr. Marley next week as he will need bridging to warfarin for his pulmonary embolisms, as well as further titration of his insulin regimen. The patient and both expressed understanding to this, as well as any return precautions. DISPOSITION: Stable. DISCHARGE INSTRUCTIONS: 1. Location: Home. 2. Diet: Diabetic-carb conscious. 3. Activity: No restrictions. 4. Followup: PCP, Dr. Marley as soon as possible following CT-guided biopsy next week, CT guided biopsy on April 30, Dr. Kerr' office on May 03, GI Dr. Grubbs as directed following CT-guided biopsy. Job ID: [id number]
--- NOTE | 2019-04-29 12:39 | DIS ---
DATE OF ADMISSION: 04/22/2019 DATE OF DISCHARGE: 04/25/2019 RESIDENT: Jalil Russell DO ADMITTING ATTENDING: Gavin Velazquez MD CONSULTS: 1. GI, Dr. Marley Grubbs. 2. Oncology, Dr. Tyler Kerr. 3. Palliative Care, Dr. Jennifer Danielle. 4. Dietitian. 5. Case Management. PROCEDURES: None. PRIMARY DIAGNOSES: 1. Pancreatic mass, likely adenocarcinoma with metastatic disease to the liver. 2. Bilateral pulmonary embolism. 3. New-onset diabetes mellitus. SECONDARY DIAGNOSES: 1. Elevated troponins. 2. Elevated blood pressure. DISCHARGE MEDICATIONS: 1. Fish oil 1000 mg daily. 2. Omeprazole 20 mg b.i.d. 3. Niacin 500 mg 2 tabs daily. 4. Simvastatin 10 mg at bedtime. 5. Aspirin 80 mg daily, hold for [address]-guided biopsy. 6. Paulette 180 mg daily. 7. Multivitamin one tablet daily. 8. Lovenox 60 mg b.i.d. continue until bridged to warfarin, hold 24hr prior to CT-guided biopsy 9. Humulin 70/30 of 15 units b.i.d. 10. Claritin 10 mg daily. HISTORY OF PRESENT ILLNESS/HOSPITAL COURSE: The patient is a 59-year-old male, who presented to an outside ED with complaints of increasing fatigue and shortness of breath. The patient had a cholecystectomy [address] Delvalle and states that since then he has continually been tired with low energy and tolerance for exercise. The patient recently returned from a trip to [place], where he states that after getting here, he became acutely more fatigued and short of breath. The patient states that they drove both to and from [place] and where in the car for an extended period of time. The patient subsequently was seen by his PCP, Dr. Marley and was found to have an undetectable TSH and was referred to an ENT. ENT saw him and suggested that he be seen at the ER emergently. The patient was then seen at [facility] and was found to have an elevated D- dimer, prompting a CTA of the chest revealing bilateral pulmonary embolisms as well as incidental findings of innumerable masses in his liver. The patient was started on therapeutic Lovenox and transferred to [place]. The patient was also found to have elevated glucose levels in the upper 400s. However, he denies any history of diabetes in the past. The patient was admitted to telemetry floor for further continued monitoring. He was started initially on 10 units of basal insulin with rapid fluid resuscitation. His therapeutic Lovenox was continued and ultrasounds of bilateral lower extremity revealed superficial clots and bilateral tibial vein. On the subsequent day, the patient had a followup abdominal CT with and without contrast that showed a 2.6-cm mass at the head of the patient's pancreas and again displayed numerous innumerable masses in the patient's liver, thought to be most likely pancreatic adenocarcinoma with metastatic disease to liver. The patient and were informed of these findings and Gastroenterology and Oncology were both consulted. Dr. Grubbs suggested that the patient have a CT-guided biopsy of his likely liver metastasis for a tissue diagnosis. However, the patient was on aspirin and would need to be off the medication for 5 days before you would be able to receive a biopsy. An outpatient biopsy was scheduled for April 30. The patient was instructed to hold his aspirin for 5 days prior to his CT-guided biopsy and hold his Lovenox 24 hours prior to the procedure. The remainder of the patient's stay was spent titrating his glucose. The patient is uninsured and ruiz pay, so was started on 70/30 Humulin, which was titrated to 15 units b.i.d. with adequate control. The patient was educated by both nursing staff and physician on appropriate insulin administration and glucose level checking. He is recommended to follow up closely with his PCP next week for further bridging from Lovenox to warfarin as well as continued titration of his insulin for tighter glycemic control. The patient and both expressed understanding of the patient's new diagnosis and necessity for close medical followup, including risk of hypoglycemia and appropriate intervention. DISPOSITION: Stable. DISCHARGE INSTRUCTIONS: 1. Location: Home. 2. Diet: Carb conscious. 3. Activity: As tolerated. 4. Followup: PCP, Dr. Marley within 7 days, Dr. Kerr, Oncology on May 03, Dr. Grubbs, Gastroenterology as directed following CT-guided biopsy. Job ID: [id number] [facility]
== END 2019-04-25 18:15 | disposition home or self-care (01) | DRG 435 ==
LOC: SCSER 11:56 → 2NO 20:38
PROVIDERS: ADMIT Family Medicine; ATTEND Family Medicine
DX: C78.7 Secondary malignant neoplasm of liver and intrahepatic bile duct (principal); I26.99 Other pulmonary embolism without acute cor pulmonale; E11.10 Type 2 diabetes mellitus with ketoacidosis without coma; I21.A1 Myocardial infarction type 2; C25.9 Malignant neoplasm of pancreas, unspecified; E87.1 Hypo-osmolality and hyponatremia; I82.443 Acute embolism and thrombosis of tibial vein, bilateral; E78.5 Hyperlipidemia, unspecified; E83.52 Hypercalcemia; E78.00 Pure hypercholesterolemia, unspecified; R79.89 Other specified abnormal findings of blood chemistry; K86.9 Disease of pancreas, unspecified; R74.8 Abnormal levels of other serum enzymes; Z90.49 Acquired absence of other specified parts of digestive tract; Z90.79 Acquired absence of other genital organ(s); Z92.3 Personal history of irradiation; Z87.891 Personal history of nicotine dependence; Z88.8 Allergy status to other drugs, medicaments and biological substances; Z85.46 Personal history of malignant neoplasm of prostate; Z79.899 Other long term (current) drug therapy
CPT/HCPCS: 36415; 36416; 71046; 71275; 72193; 74170; 80053; 81003; 82010; 82378; 82550; 82553; 82805; 83036; 83605; 83690; 83735; 83880; 84484; 85007; 85027; 85379; 85610; 85730; 86301; 93005; 93970; 96361; 96372; 96374; J1650; J1815; Q9967

== ENCOUNTER 2019-04-30 09:17 | Day surgery (SDC) | payer OTHER ==
[2019-04-30] MEDS ORDERED: Fentanyl 100 MCG/2 ML VIAL ONE (10:27)
[2019-04-30] MEDS ORDERED: Sodium Bicarbonate 2.5 MEQ/5 ML VIAL ONE (10:27)
[2019-04-30] MEDS ORDERED: Midazolam HCl 2 mg/2 ml Vial ONE (10:28)
--- NOTE | 2019-04-30 11:57 | CT ---
CT Liver Perc Biopsy CT GUIDED HEPATIC BIOPSY: CLINICAL HISTORY: Indeterminate hepatic lesions. PROCEDURE: Informed consent was obtained and the patient was escorted to the procedural suite, placed in supine position. The patient's skin was prepped and draped in a standard sterile fashion and topical anesthesia with buffered 1% lidocaine was performed. After a small skin incision was made, an 18-gaug e needle were advanced to the leading edge of the hepatic lesion of interest within the left hepatic lobe. After adequate placement was confirmed with CT fluoroscopic imaging, 2 subsequent core specimens were obtained via percutaneous biopsy. These were confirmed with CT fluoroscopic imaging and the specimens were submitted to the pathologist for adequacy. Specimens were deemed adequate for interpretation. Therefore, all devices were then removed from the patient. No unexpected procedural complications were present. The patient was monitored in radiology holding i n stable condition prior to discharge with family member. IMPRESSION: Technically successful percutaneous hepatic biopsy. Pathology results are pending.
[2019-04-30 12:09] VITALS: BP 120/76; TEMP 97.8; BMI 21.1
== END 2019-04-30 13:10 | disposition home or self-care (01) ==
LOC: CT 09:17
PROVIDERS: ATTEND Internal Medicine Hematology & Oncology
PROC: BF251ZZ Computerized Tomography (CT Scan) of Liver using Low Osmolar Contrast (ICD-10-PCS; principal; 2019-04-30)
PROC: 0FB03ZX Excision of Liver, Percutaneous Approach, Diagnostic (ICD-10-PCS; principal; 2019-04-30)
DX: C78.7 Secondary malignant neoplasm of liver and intrahepatic bile duct (principal); C25.9 Malignant neoplasm of pancreas, unspecified; I10 Essential (primary) hypertension; E11.9 Type 2 diabetes mellitus without complications; Z79.01 Long term (current) use of anticoagulants; Z87.891 Personal history of nicotine dependence; Z88.8 Allergy status to other drugs, medicaments and biological substances
CPT/HCPCS: 47000; 48102; 77012; 88307; 88333; 88341; 88342; J2250; J3010

== ENCOUNTER 2019-05-14 12:08 | Outpatient (CLI) | payer OTHER ==
--- NOTE | 2019-05-14 13:14 | ULT ---
ULTRASOUND ABDOMEN COMPLETE: DATE: 05/14/2019 HISTORY: 59-year-old male with malignant neoplasm of head of pancreas. Jaundice due to cancer. FINDINGS: Liver:Very large number of small focal moderately hypoechoic metastatic lesions throughout the left a nd right lobes, many of them confluent with each other, coalescing into larger lesions. Tiny amount of free fluid adjacent to liver. Gallbladder:Surgically absent Common duct:17 mm. Intrahepatic bile ducts: Diffusely dilated Spleen:No splenomegaly Pancreas:Approximately 3 x 3 x 2.5 cm very hypoechoic mass with irregular margins at pancreatic head. Kidneys:No hydronephrosis. Small 1 x 1.5 cm left cortical cyst.Similar sized exophytic cyst at right renal upper pole. Abdominal aorta:No aneurysm Inferior vena cava:Limited visualization. IMPRESSION: 1) evidence for malignant neoplastic tumor at head of pancreas causing biliary obstruction. 2) diffuse dilation of biliary tree. 3) very large number of small hepatic metastases.
== END 2019-05-14 12:09 | disposition home or self-care (01) ==
LOC: BICULT 12:08
PROVIDERS: ATTEND Internal Medicine Hematology & Oncology
DX: C25.0 Malignant neoplasm of head of pancreas (principal); K83.1 Obstruction of bile duct; C78.7 Secondary malignant neoplasm of liver and intrahepatic bile duct
CPT/HCPCS: 76700

== ENCOUNTER 2019-05-17 10:58 | Day surgery (SDC) | payer OTHER ==
[2019-05-16 15:02] VITALS: BMI 21.6
[2019-05-17] MEDS ORDERED: Fentanyl 100 MCG/2 ML VIAL ONE (11:32)
[2019-05-17] MEDS ORDERED: Indomethacin 50 MG SUPP ONE (12:30)
[2019-05-17] MEDS ORDERED: Iothalamate Meglumine 60% 50 ML VIAL FS ONE (12:30)
[2019-05-17] MEDS ORDERED: Atracurium 100 MG/10 ML VIAL ONE (12:34)
[2019-05-17] MEDS ORDERED: methylPREDNISolone Acetate 40 mg/ml Vial ONE (12:54)
[2019-05-17] MEDS ORDERED: EPINEPHrine 1 MG/ML AMP ONE (12:56)
[2019-05-17] MEDS ORDERED: methylPREDNISolone Sod Succ/PF 125 MG/2 ML VIAL ONE (12:56)
[2019-05-17] MEDS ORDERED: cefTRIAXone\\ROCEPHIN 2 GM VIAL ONE (13:04)
[2019-05-17] MEDS ORDERED: Sodium Chloride 0.9% 100 ML ONE (13:04)
--- NOTE | 2019-05-17 14:28 | RAD ---
ERCP: 05/17/2019 HISTORY: Bile duct obstruction FINDINGS: 5 images are provided. There is contrast media within a dilated intrahepatic biliary system . The common bile duct is markedly dilated. A partially visualized stent is placed within the common bile duct. IMPRESSION: Evidence of biliary obstruction with placement of a metallic CBD stent. This is consisten t with the patient's history of an obstructing pancreatic malignancy.
--- NOTE | 2019-05-17 17:09 | OP ---
DATE OF PROCEDURE: 05/17/2019 PROCEDURE PERFORMED: Endoscopic retrograde cholangiopancreatography with sphincterotomy and WallFlex biliary stent placement. PREMEDICATION: Given by Anesthesiology Department. PREPROCEDURE DIAGNOSIS: Biliary obstruction from pancreatic tumor. POSTPROCEDURE DIAGNOSES: 1. Severely dilated mid to proximal biliary tree. 2. Tight distal biliary stricture measuring approximately 4 cm long. DESCRIPTION OF PROCEDURE: Written consents were obtained prior to procedure. After adequate sedation, the side-viewing endoscope was advanced down the stomach through the pylorus into the duodenum. The ampulla was visualized and appears to be very bulging. The ampulla was noted at the most superior aspect of the bulging ampulla. Selective cannulation was performed using a papillotome with guidewire guidance. Cannulation was success into the biliary tree. The pancreatic duct was never entered nor visualized. The injection contrast showed a diffusely dilated mid to proximal common bile duct well into intrahepatic ducts. This catheter was then withdrawn back to the ampulla. A sphincterotomy was performed with good hemostasis. The papillotome was removed. A 10 x 60 mm WallFlex metal stent was then inserted over the guidewire. Under fluoroscopic guidance, the stent was deployed in good position with generous drainage of contrast involved. The guide apparatus was then removed. There was no immediate complication noted. The instruments and endoscope were removed. The patient tolerated the procedure well. ASSESSMENT: Status post placement of a WallFlex metal biliary stent for distal common bile duct stricture from pancreatic tumor. PLAN: 1. We will follow up LFT in 1 week. 2. The patient can proceed with chemotherapy. Job ID: [id number]
== END 2019-05-17 16:00 | disposition home or self-care (01) ==
LOC: SDC 10:58
PROVIDERS: ATTEND Internal Medicine Gastroenterology
PROC: 0F7D8DZ Dilation of Pancreatic Duct with Intraluminal Device, Via Natural or Artificial Opening Endoscopic (ICD-10-PCS; principal; 2019-05-17)
DX: C25.9 Malignant neoplasm of pancreas, unspecified (principal); K80.71 Calculus of gallbladder and bile duct without cholecystitis with obstruction; E80.6 Other disorders of bilirubin metabolism; K64.4 Residual hemorrhoidal skin tags; E11.9 Type 2 diabetes mellitus without complications; I10 Essential (primary) hypertension; I25.10 Atherosclerotic heart disease of native coronary artery without angina pectoris; E78.5 Hyperlipidemia, unspecified; E78.00 Pure hypercholesterolemia, unspecified; K21.9 Gastro-esophageal reflux disease without esophagitis; J45.909 Unspecified asthma, uncomplicated; Z79.4 Long term (current) use of insulin; Z79.899 Other long term (current) drug therapy; Z87.891 Personal history of nicotine dependence; Z88.8 Allergy status to other drugs, medicaments and biological substances
CPT/HCPCS: 36416; 74330; C1874; J0171; J0696; J1030; J1610; J2930; J3010; J3490

== ENCOUNTER 2019-05-20 10:26 | Inpatient (IN) | payer SELFPAY ==
[~2019-05-20 10:26] MED LIST: ISOVUE-370 76%-LOCM 1 ML ONE
--- NOTE | 2019-05-20 11:43 | ULT ---
EXAM: Right lower extremity venous ultrasound HISTORY: Right lower extremity pain and edema COMPARISON: 04/23/2019 TECHNIQUE: Multiplanar grayscale and color Doppler images were obtained in a right lower extremity ve nous ultrasound. Spectral analysis of the Doppler waveforms were performed. FINDINGS: The common femoral vein, profunda femoral vein, superficial femoral vein, and popliteal vei n are normal in appearance without visible thrombus. These vessels demonstrate normal compression, flow, and augmentation. The greater saphenous vein are patent without evidence of thrombus. There is a stable area of increa sed echogenicity in the midportion of the posterior tibial vein which may represent scarring or thrombus in this location. IMPRESSION: Stable exam of the right leg
--- NOTE | 2019-05-20 12:53 | ULT ---
EXAM: Right lower extremity arterial ultrasound HISTORY: Right leg pain COMPARISON: None TECHNIQUE: Multiplanar grayscale and color Doppler images were obtained and a right lower extremity a rterial ultrasound. Spectral analysis of the Doppler waveforms were performed. FINDINGS: No significant calcified plaque is seen in lower extremity. Right lower extremity: Common femoral artery: Occluded Profundofemoral artery: Biphasic Superficial femoral artery: Minimal monophasic Popliteal artery: Monophasic Anterior tibial artery: Monophasic Posterior tibial artery: Monophasic Dorsalis pedis artery: Monophasic No significant increase in velocity is seen from a more proximal to a distal segment to suggest an ar ea of focal atherosclerotic disease. IMPRESSION: . There is occlusion of the common femoral artery.
[2019-05-20 13:22] LABS: #Basophils 0.1 thou/uL (0.0-0.2); #Eosinphils 0.4 thou/uL (0.0-0.7); #Lymphocytes 1.1 thou/uL (1.20-3.40); #Monocytes 0.9 thou/uL (0.11-0.59); #Neutrophils 8.6 thou/uL (1.40-6.50); %Basophils 0.5 % (0.0-1.0); %Eosinophils 3.5 % (0.0-10.0); %Lymphocytes 9.9 % (21.0-51.0); %Monocytes 8.5 % (0.0-10.0); %Neutrophils 77.6 % (42.0-75.0); Hemoglobin 8.6 g/dL (14.0-18.0); Mean Corpuscular HGB CONC 33.6 g/dL (32.0-36.0); Mean Corpuscular Hemoglobin 29.7 pg (27.0-31.0); Mean Corpuscular Volume 88.4 fL (78.0-98.0); Mean Platelet Volume 8.2 fL (7.4-10.4); Platelet Count 276 thou/uL (130-400); Red Blood Cell (RBC) Count 2.88 mill/uL (4.70-6.10); White Blood Cell (WBC) Count 11.1 thou/uL (4.8-10.8)
[2019-05-20 13:43] LABS: ALT (SGPT) 83 U/L (8-55); AST (SGOT) 41 U/L (5-34); Albumin 2.8 g/dL (3.5-5.0); Alkaline Phosphatase 1175 U/L (40-110); Anion Gap 13 mmol/L (10-20); BUN (Urea Nitrogen) 13 mg/dL (8.4-25.7); Bilirubin, Total 5.8 mg/dL (0.2-1.2); CK (CPK) 141 U/L (30-200); Calc. Creatinine Clearance 0 mL/min (70-130); Calcium 8.7 mg/dL (7.8-10.44); Carbon Dioxide 26 mmol/L (22-29); Chloride 99 mmol/L (98-107); Estimated GFR-MDRD Greater than 90; Globulin 2.7 g/dL (2.4-3.5); Glucose 83 mg/dL (70-105); Potassium 3.5 mmol/L (3.5-5.1); Protein, Total 5.5 g/dL (6.0-8.3); Sodium 134 mmol/L (136-145)
[2019-05-20] MEDS ORDERED: diphenhydrAMINE 50 MG/ML VIAL ONE (14:58)
[2019-05-20] MEDS ORDERED: Ondansetron PF 4 MG/2 ML Vial ONE (14:58)
[2019-05-20] MEDS ORDERED: PROPOFOL 200 MG/20 ML VIAL ONE (14:58)
[2019-05-20] MEDS ORDERED: Heparin 10,000 UNITS/ 10 ML VIAL ONE (14:58)
[2019-05-20] MEDS ORDERED: Glycopyrrolate 0.2 MG/ML 5 ML SYRINGE ONE (14:58)
[2019-05-20] MEDS ORDERED: Lidocaine 1% PF 5 ML VIAL ONE (14:58)
[2019-05-20] MEDS ORDERED: Dextrose 50% Abboject 50 ML SYRINGE ONE ×2 (14:58→18:07)
[2019-05-20] MEDS ORDERED: Heparin 5,000 UNITS/ML VIAL ONE (15:52)
[2019-05-20] MEDS ORDERED: Protamine Sulfate 50 MG/5 ML VIAL ONE (15:52)
--- NOTE | 2019-05-20 15:57 | CT ---
CTA ABDOMEN AND PELVIS AND LOWER EXTREMITIES: INDICATIONS: Right lower extremity numbness and coldness. Arterial Doppler study ordered today showed evidence of occlusion of the right femoral artery. TECHNIQUE: Axial tomograms obtained with multiplanar reconstruction and 3D post processing. FINDINGS: The abdominal aorta is unremarkable in appearance. There is mild atherosclerotic change present in th e distal abdominal aorta with peripheral thrombus. no aneurysm. No dissection. The celiac artery, sup erior mesenteric artery and renal arteries are patent and unremarkable. The distal abdominal aorta is mildly ectatic with diameter measuring up to 1.8 cm. There is atheroscl erotic change in both common iliac arteries with mild stenosis in the proximal left common iliac, jus t beyond the bifurcation. The degree of stenosis is approaching 50% diameter by NASCET criteria at th is location. RIGHT LOWER EXTREMITY: Right internal iliac is patent. There is occlusion of the right external iliac just beyond its origin. Right common femoral is occluded. Profunda fills retrograde via collaterals from the internal iliac. Right superficial femoral artery reconstitutes upper thigh via collaterals from the profunda. There is flow in the right popliteal. The popliteal is small. The popliteal trifurcates below the kne e. There is occlusion of the anterior tibial artery proximally. The peroneal occludes distally. The posterior tibial appears patent to the ankle. LEFT LOWER EXTREMITY: Internal and external iliacs are patent. Common femoral is patent. Profunda is patent. Left superficial femoral artery shows mild atherosclerotic disease but is patent. There is stenosis a t Delano's canal on the left, producing moderate stenosis, approaching 50% by NASCET criteria. Left popliteal is patent and unremarkable. Popliteal trifurcates and there is three vessel runoff to the ankle. SOFT TISSUES: Numerous lesions throughout the liver, consistent with diffuse metastatic disease. A bi liary stent has been placed in the common duct. There is pneumobilia now present. Left adrenal nodule is stable. Kidneys unremarkable. Bowel loops unremarkable. Small volume ascites is noted. Osseous structures are unremarkable. IMPRESSION: 1. Occlusion of the right external iliac just beyond its origin. Occlusion of the right common femora l. Reconstitution of the right profunda femoral and reconstitution of the right superficial femoral a rtery in the proximal thigh, as described above. Right superficial femoral artery and popliteal arter y are small. Occlusion of the right anterior tibial artery proximally, as noted above. 2. Soft tissues show right biliary duct stent with pneumobilia. Diffuse hepatic metastasis. Low volum e ascites. The degree of hepatic metastatic disease has increased when compared to the recent examina tion of 04/23/2019. POS: ANGELINA
[2019-05-20] MEDS ORDERED: Fentanyl 250 MCG/5 ML VIAL ONE (16:12)
[2019-05-20] MEDS ORDERED: Atracurium 100 MG/10 ML VIAL ONE ×2 (16:21→19:51)
[2019-05-20 18:23] LABS: Hemoglobin 7.8 g/dL (14.0-18.0)
[2019-05-20 18:43] LABS: Anion Gap 12 mmol/L (10-20); BUN (Urea Nitrogen) 11 mg/dL (8.4-25.7); Calc. Creatinine Clearance 0 mL/min (70-130); Calcium 8.2 mg/dL (7.8-10.44); Carbon Dioxide 25 mmol/L (22-29); Chloride 99 mmol/L (98-107); Estimated GFR-MDRD Greater than 90; Glucose 281 mg/dL (70-105); Potassium 3.4 mmol/L (3.5-5.1); Sodium 133 mmol/L (136-145)
--- NOTE | 2019-05-20 19:33 | HP ---
CHIEF COMPLAINT: Right leg pain giving way to right leg coldness. PRIMARY CARE PHYSICIAN: Tyler Kerr MD GASTROENTEROLOGY: Lloyd Delvalle MD HISTORY OF PRESENT ILLNESS: The patient is a 59-year-old man, who was recently diagnosed with pancreatic cancer. He developed obstructive jaundice and on 05/17, underwent biliary stenting. He has recently been diagnosed with thrombus in both posterior tibial veins and was started on Lovenox. Yesterday, he had sudden onset of pain and numbness in his right foot that subsided and improved, but today he still has a noticeably cooler right foot than the left. There is some slight mottling to the dorsum of the foot and the great toe, but just before my arrival to see him in the emergency room, he had gone to the bathroom and was able to walk that limited distance without pain in his legs. In retrospect for about a year or 2, he has noticed that the muscles in his right leg seem to tire significantly more easily than they do on the left. PAST MEDICAL HISTORY: Significant for prostate cancer. He has had recent cholecystectomy. He very recently quit smoking. HOME MEDICATIONS: 1. Zocor. 2. Omeprazole. 3. Niacin. 4. Multivitamins. 5. Insulin. 6. Lovenox. ALLERGIES: HE REPORTS A REACTION TO AN AGENT UNDER ANESTHESIA RECENTLY. HE THINKS IT WAS ROCURONIUM. HE DESCRIBED ANAPHYLAXIS, BUT THEN SAID HE BROKE OUT IN [facility]. REVIEW OF SYSTEMS: As above. PHYSICAL EXAMINATION: GENERAL: He is in no distress. VITAL SIGNS: Heart rate is 90, blood pressure 142/60, temperature is 98.3, O2 saturations are 98% on room air. NECK: He has no obvious carotid bruits. CHEST: Clear to auscultation. HEART: He has regular rate and rhythm. He is somewhat icteric. ABDOMEN: Soft and nontender. He has palpable left femoral pulse with an audible femoral bruit and easily palpable left popliteal pulse. The left dorsalis pedis is palpable, but weak. I am not able to palpate a right femoral pulse, popliteal pulse, or pedal pulse. His right foot has about 1.5 second capillary refill and is reasonably warm. His right foot is slightly cooler and paler with some mottling on the dorsum of the forefoot extending onto the great toe. Capillary refill is about 2 to 2.5 seconds. His vascular ultrasound showed minimal plaque, but occlusion of his right common femoral artery. IMAGING DATA: CT angiography done at my request shows plaque in his distal aorta and common iliac with occlusion of his external iliac shortly after its origin from the common femoral, it is difficult to say with any certainty about the length of that lesion. IMPRESSION AND RECOMMENDATIONS: Currently, the patient has no overt symptoms other than he can tell that his right foot is cooler. He is able to walk short distances without claudication. The numbness and pain have resolved. My concern is that his vascularity is marginal as evidenced by the paleness, mottling, and coolness and that once he starts chemotherapy if he were to get worse, our hands may be forced at a point when it might be fraught with disaster to attempt surgery with respect to wound healing. After discussing options with him, he has elected to proceed with what I think will most likely represent a femoral-femoral bypass. If feasible, I will look into using vein to avoid the use of synthetics given his potential for wound healing problems. Job ID: [id number]
[2019-05-20] MEDS ORDERED: HYDROcodone/Acetaminophen 5/325 mg Tablet PO PRN ×2 (20:22)
[2019-05-20] MEDS ORDERED: Promethazine HCl 25 MG/ML VIAL PR PRN (20:22)
[2019-05-20] MEDS ORDERED: Ondansetron PF 4 MG/2 ML Vial IVP PRN (20:22)
[2019-05-20] MEDS ORDERED: Acetaminophen 325 MG TAB PO PRN (20:22)
[2019-05-20] MEDS ORDERED: Morphine Sulfate 2 MG/ML SYRINGE SLOW IVP PRN (20:33)
[2019-05-20] MEDS ORDERED: Ondansetron HCl/PF 4 MG/2 ML Vial IVP PRN (20:33)
[2019-05-20] MEDS ORDERED: Promethazine HCl 25 MG/ML VIAL SLOW IVP PRN (20:33)
[2019-05-20] MEDS ORDERED: Meperidine HCl/PF 25 MG/ML VIAL SLOW IVP PRN (20:33)
[2019-05-20 20:55] LABS: #Basophils 0.1 thou/uL (0.0-0.2); #Eosinphils 0.3 thou/uL (0.0-0.7); #Lymphocytes 1.1 thou/uL (1.20-3.40); #Neutrophils 8.6 thou/uL (1.40-6.50); %Basophils 0.6 % (0.0-1.0); %Eosinophils 3.1 % (0.0-10.0); %Lymphocytes 9.8 % (21.0-51.0); %Monocytes 8.9 % (0.0-10.0); %Neutrophils 77.7 % (42.0-75.0); Hemoglobin 9.2 g/dL (14.0-18.0); Mean Corpuscular HGB CONC 33.5 g/dL (32.0-36.0); Mean Corpuscular Hemoglobin 29.7 pg (27.0-31.0); Mean Corpuscular Volume 88.8 fL (78.0-98.0); Mean Platelet Volume 7.9 fL (7.4-10.4); Platelet Count 271 thou/uL (130-400); RBC Distribution Width 15.4 % (11.5-14.5); Red Blood Cell (RBC) Count 3.09 mill/uL (4.70-6.10); White Blood Cell (WBC) Count 11.1 thou/uL (4.8-10.8)
[2019-05-20] MEDS ORDERED: Fentanyl 100 MCG/2 ML VIAL ONE (21:07)
[2019-05-20 22:21] VITALS: BMI 21.2
--- NOTE | 2019-05-21 00:58 | OP ---
DATE OF PROCEDURE: 05/20/2019 PROCEDURES PERFORMED: Right iliofemoral thrombectomy, left common femoral endarterectomy, femoral-femoral bypass with reverse greater saphenous vein graft. PREOPERATIVE DIAGNOSIS: Acute peripheral vascular disease with acute right lower extremity ischemia. POSTOPERATIVE DIAGNOSIS: Acute peripheral vascular disease with acute right lower extremity ischemia. ANESTHESIA: General endotracheal anesthesia. INDICATIONS FOR PROCEDURE: The patient is a 59-year-old diabetic man with recently diagnosed metastatic pancreatic cancer. For a year or 2, he has had easy fatigability in musculature of the right lower extremity on ambulation and yesterday he had sudden onset of pain followed by paresthesias in his right foot. The discomfort subsided, but today noticed that the foot was still noticeably cooler than the left side. There was also some mottling on the foot. He had a nonpalpable right femoral pulse and sluggish capillary refill in the right foot. Minimal atherosclerotic disease at the femoral level by ultrasound, but the femoral was occluded. CT angiography demonstrated heavy plaque at the right common iliac bifurcation. The patient is now taken to the operating room for urgent revascularization. DESCRIPTION OF PROCEDURE: After informed consent was obtained, the patient was taken to the operating room, placed in supine position on the operating table. After the induction of general anesthesia and placement of a Alvarado catheter, his greater saphenous vein in his right thigh was ultrasonographically mapped and marked. It appeared to be of adequate size to support bypass in order to avoid use of prosthetic material in this patient soon to undergo chemotherapy. The common femoral bifurcations were identified ultrasonographically bilaterally. His lower abdomen, groins, and lower extremities were then prepped and draped in sterile fashion. Saphenous vein was exposed just above the right knee and then endoscopically harvested up to the groin level. An oblique incision was made parallel and a little below the right groin crease and the saphenofemoral junction was identified. The saphenous was ligated and divided distally just below the knee, passed up and withdrawn back up into the groin incision. Bleeding from a small arterial branch at the groin level at the vein harvest bed was controlled with clips and electrocautery. Backbleeding from the first two relatively large medial branches of the saphenous vein at the groin level required clipping more proximal and could be controlled through that incision. A counter incision was required to identify and control the other one. The right common femoral artery and its bifurcation were then exposed, isolated, and looped. The left distal common femoral artery was then exposed through a mirror-image groin incision. Subcutaneous tunnel was developed just superficial to the oblique fascia passing just above the pubis and then the patient was heparinized. The saphenous vein, which had been prepared for grafting, was marked to facilitate orientation and it was passed through the tunnel that had been created from one groin incision to the other with the outflow in the right groin and inflow at the left groin. Vascular control was established on the right common femoral artery, superficial femoral artery, and the profunda. A longitudinal arteriotomy was made in the distal common femoral, extending it down onto the superficial femoral to allow for the graft to have an easy lie coming down off the inguinal ligament. Thrombus was extracted locally, and then using a #4 Rebeca catheter, it was extracted from the superficial femoral system, the profunda, and then proximally from the iliofemoral segment. While the deflated balloon could be passed essentially for its full length proximally at 10 cm from the femoral arteriotomy, it hung up requiring deflation. When no more thrombus could be extracted proximally, it had modestly good inflow bleeding. There was a small amount of thrombus extracted from the profunda system with good backbleeding from it, and on the initial pass, the Rebeca catheter could be passed for its full length. On following pass, it could only be passed down to about 40 or 45 cm, which corresponded reasonably well with some distal SFA disease seen on the patient's CT angiogram. When no more thrombus could be extracted, the saphenous vein was spatulated and anastomosed to that arteriotomy end-to-side with running Prolene. The lone pine vasculature was flushed and then the graft was flushed with saline and the suture line secured. The vascular controls were released sequentially first releasing the profunda, then the common femoral and then the superficial femoral. Proximal and distal control were then established on the left femoral system using separate clamps for the branch vessels. Slightly oblique arteriotomy was made in the distal common femoral. It was quite thick-walled vessel in spite of the strong pulse that had been palpable in it. An endarterectomy was performed there locally transecting it proximally and feathering it distally. The distal feather was tacked with mattress sutures and then the vein graft was distended and trimmed to length with spatulation. It was anastomosed there end-to-side to the left femoral arteriotomy with running Prolene. Again, the lone pine vasculature was flushed and the suture line was secured with flow being allowed first down the profunda, then the SFA, and then into the graft. The suture lines were inspected for hemostasis. Vascular exam was performed. The patient's posterior tibial on the left foot was palpable and dopplerable on the right foot. Protamine was administered when hemostasis was adequate. The incisions were closed in layers of subcutaneous and subcuticular Vicryl. Dermabond and dressings were applied. The right lower extremity was wrapped with an Nahum wrap. He was awakened in the operating room and taken to recovery area in good condition. We had an easily palpable left posterior tibial pulse, and while the mottling in his great toe that had been preoperatively, was still present. The capillary refill was brisk. Job ID: [id number]
[2019-05-21] MEDS: Fentanyl 100 MCG/2 ML VIAL SLOW IVP PRN ×4 (01:27→14:36)
[2019-05-21] MEDS ORDERED: Heparin 5,000 UNITS/ML VIAL ONE (03:23)
[2019-05-21] MEDS ORDERED: Protamine Sulfate 50 MG/5 ML VIAL ONE (03:23)
[2019-05-21] MEDS ORDERED: Iothalamate Meglumine 60% 50 ML VIAL FS ONE (03:24)
[2019-05-21] MEDS: Sodium Chloride 0.9% 1,000 ML IV SCH ×4 (03:33→18:18)
[2019-05-21] MEDS ORDERED: HYDROmorphone 0.5 MG/0.5 ML SYRINGE ONE (03:40)
[2019-05-21] MEDS ORDERED: Fentanyl 250 MCG/5 ML VIAL ONE (03:40)
[2019-05-21] MEDS ORDERED: Atracurium 100 MG/10 ML VIAL ONE (03:43)
[2019-05-21] MEDS ORDERED: CEFAZOLIN 2 GM in Premix Bag 1 BAG IVPB SCH (05:00)
[2019-05-21] MEDS ORDERED: Heparin 10,000 UNITS/1 ML VIAL ONE (06:48)
[2019-05-21] MEDS ORDERED: Fentanyl 100 MCG/2 ML VIAL ONE (07:58)
[2019-05-21 08:50] LABS: #Basophils 0.1 thou/uL (0.0-0.2); #Eosinphils 0.2 thou/uL (0.0-0.7); #Lymphocytes 1.6 thou/uL (1.20-3.40); #Neutrophils 9.8 thou/uL (1.40-6.50); %Basophils 0.4 % (0.0-1.0); %Eosinophils 1.9 % (0.0-10.0); %Lymphocytes 12.8 % (21.0-51.0); %Monocytes 7.6 % (0.0-10.0); %Neutrophils 77.2 % (42.0-75.0); Hemoglobin 8.6 g/dL (14.0-18.0); Mean Corpuscular HGB CONC 33.1 g/dL (32.0-36.0); Mean Corpuscular Hemoglobin 29.3 pg (27.0-31.0); Mean Corpuscular Volume 88.7 fL (78.0-98.0); Mean Platelet Volume 7.7 fL (7.4-10.4); Platelet Count 254 thou/uL (130-400); RBC Distribution Width 15.8 % (11.5-14.5); Red Blood Cell (RBC) Count 2.94 mill/uL (4.70-6.10); White Blood Cell (WBC) Count 12.7 thou/uL (4.8-10.8)
[2019-05-21 09:19] LABS: Anion Gap 15 mmol/L (10-20); BUN (Urea Nitrogen) 10 mg/dL (8.4-25.7); Calc. Creatinine Clearance 108 mL/min (70-130); Calcium 7.8 mg/dL (7.8-10.44); Carbon Dioxide 22 mmol/L (22-29); Chloride 102 mmol/L (98-107); Estimated GFR-MDRD Greater than 90; Glucose 151 mg/dL (70-105); Potassium 3.9 mmol/L (3.5-5.1); Sodium 135 mmol/L (136-145)
[2019-05-21] MEDS: Aspirin Chewable 81 MG TAB PO SCH (10:01)
[2019-05-21] MEDS ORDERED: Heparin 25,000 units/D5W 500 ML IV SCH ×2 (11:15→11:45)
[2019-05-21 11:24] LABS: INR-International Normal Ratio 1.1; PTT 29.7 SEC (22.9-36.1)
[2019-05-21] MEDS ORDERED: Heparin 1,000 UNITS/ML VIAL SLOW IVP SCH ×2 (11:30→11:45)
[2019-05-21] MEDS: Ketorolac Tromethamine 30 MG/ML VIAL IVP SCH ×3 (11:41→23:09)
[2019-05-21 13:13] LABS: Actual Bicarbonate (HCO3a) 20.5 mEq/L (22-28); Analyzer IN Cardio OR; Base Excess (BEa) -3.2 mEq/L (-2.0 to +3.0); CO2 Tension 30.8 mmHg (35.0-45.0); Calcium, Ionized 0.99 mmol/L (1.12-1.30); Carboxyhemoglobin (COHb) 1.3 gm% (0.0-3.0); Hemoglobin (Hb) 7.1 g/dL (14.0-18.0); O2 Tension (PaO2) 167.9 mmHg (> 80.0); Potassium - ABG Lab 2.58 mmol/L (3.70-5.30); pH, Arterial 7.44 (7.35-7.45)
[2019-05-21 13:14] LABS: Puncture Site ALINE
--- NOTE | 2019-05-21 14:37 | OP ---
DATE OF PROCEDURE: 05/21/2019 PROCEDURE PERFORMED: Right iliofemoral and femoral popliteal thrombectomy, right popliteal artery endarterectomy with bovine pericardial patch angioplasty and right common femoral artery to superior genicular popliteal artery bypass with reverse greater saphenous vein graft. PREOPERATIVE DIAGNOSIS: Acute right lower extremity ischemia. POSTOPERATIVE DIAGNOSIS: Acute right lower extremity ischemia. ANESTHESIA: General endotracheal anesthesia. INDICATIONS FOR PROCEDURE: The patient is a 59-year-old man, newly diagnosed with metastatic pancreatic cancer, who had sudden onset of pain and paresthesias in his right foot that improved overnight, but he was found to have some mottling of the foot and occlusion of the femoral artery on that side and he underwent urgent revascularization in the form of a femoral-femoral bypass using saphenous vein. This required an extensive thrombectomy of the iliofemoral segment on the right and an endarterectomy on the left. Several hours postoperatively, he had sudden onset of intense pain in his right foot. It was now quite pale and the previously dopplerable posterior tibial pulse was lost. He has now returned to the operating room. FINDINGS: Thrombus in the iliofemoral segment. Adequate inflow from the crossover graft, inconsistently able to pass a Rebeca catheter proximally and distally in the SFA, passing it distally from the popliteal into the foot. There was some resistance in the tibial vasculature, but it was possible to pass it well into the foot. There was extensive complex and layered plaque in the popliteal. DESCRIPTION OF PROCEDURE: After informed consent was obtained, the patient was returned to the operating room, placed in supine position on the operating room table. After the induction of general anesthesia, ultrasound was used to examine the patient's femoral artery. It appeared to be thrombosed, even in the proximal thigh. His lower abdomen, groins, lower extremities were prepped and draped in sterile fashion. The port site of the saphenous vein harvest incision at the knee was extended and the popliteal space was entered. Popliteal artery was quite leathery with a few areas of scattered hard plaque. The ligated end of the saphenous vein just below the knee was identified and using that as an initial guide, saphenous vein was harvested from that point down onto the foot using a skin bridge technique. It was prepared for use as a graft and the patient was heparinized. The groin incision was reopened. There was a palpable pulse in the cottrell of the crossover graft anastomosis on the right femoral. A tunneler was used to create a subsartorial tunnel and passed the reversed greater saphenous vein up to the groin because of relatively limited vein. The popliteal artery was dissected out more proximally. It was then opened where the vein appeared to line up and thrombus was encountered. The arteriotomy was extended and thrombus extracted. Deep to that could be appreciated a complex layered plaquing, some of which was from the vessel wall. It was quite difficult to pass a Rebeca catheter below the knee. From that point, the arteriotomy was then extended generously committing to the use of a patch to which the vein would be anastomosed. An arteriotomy approaching 10 cm in length was made and it was endarterectomized. It was transected proximally and broken off distally feathering it and then after identifying the true lumen, the plaque was tacked to the vessel wall with mattress sutures of fine Prolene. The Rebeca catheter with some difficulty could be passed proximally. There was some resistance to passing it distally, but it could be passed into the foot. The Rebeca was passed in both directions until no more thrombus was extracted and then a bovine pericardial patch was used as an onlay patch at that point. The vein was distended and an incision was made in the patch corresponding with the available length of vein. It was anastomosed there end-to-side with running Prolene. Attention was then turned to the groin incision. Vascular control was established on the samish iliofemoral system and on the graft and a longitudinal graftotomy was made in the anastomotic cottrell. Thrombus was encountered there emanating from the samish vasculature. A Rebeca catheter was used to extract thrombus from the iliac from the SFA and from the profunda and then the vein graft to the popliteal was anastomosed there re-establishing outflow to the foot. The foot slowly improved in color and a Doppler pulse was readily identifiable in the posterior tibial position. Protamine was partially reversed, but there were still some oozing from suture lines prompting complete reversal of heparin. When hemostasis was adequate, the incisions were closed in layers of deep and subcuticular Vicryl. Dermabond and dressings were applied. The patient was returned to the intensive care unit in stable condition with dramatically improved symptoms in the foot. Job ID: [id number]
[2019-05-21] MEDS ORDERED: PROPOFOL 200 MG/20 ML VIAL ONE (15:41)
[2019-05-21] MEDS ORDERED: Succinylcholine Chloride 20 MG/ML 10 ml SYRINGE FS ONE (15:41)
[2019-05-21] MEDS ORDERED: Lidocaine 2% PF 5 ML VIAL ONE (15:41)
[2019-05-21] MEDS ORDERED: Heparin 10,000 UNITS/ 10 ML VIAL ONE (15:41)
[2019-05-21] MEDS ORDERED: diphenhydrAMINE 50 MG/ML VIAL ONE (15:41)
[2019-05-21] MEDS ORDERED: CIPROFLOXACIN 500 MG PO SCH (17:45)
--- NOTE | 2019-05-21 18:49 | CON ---
DATE OF CONSULTATION: REASON FOR CONSULT: Pancreatic cancer. HISTORY OF PRESENT ILLNESS: Mr. 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 He was due to start chemotherapy with Gemzar and Abraxane last week. On the day of treatment, his bilirubin was 13.4; approximately 1 week prior, it was normal. He had a biliary stenting this previous Monday. His bilirubin has improved to 5.8. He also had bilateral PE's at time of diagnosis and is on Lovenox. Yesterday, he called complaining of right leg pain. He was sent to the ER for evaluation. He was noted to have numbness and a cold RLE. He underwent lower extremity ultrasound, which showed occlusion of the right femoral artery. He was admitted, and Dr. Menendez was consulted. He underwent a right iliofemoral thrombectomy, a left common femoral endarterectomy of femoral bypass with reverse of the greater saphenous vein graft. He is on a heparin drip. The patient remains in the ICU. He continues to have numbness in his foot. PAST MEDICAL HISTORY: 1. Newly diagnosed stage IV pancreatic cancer with liver lesions. 2. Bilateral pulmonary emboli. 3. History of prostate cancer, status post prostatectomy. 4. Diabetes. 5. Hyperlipidemia. 6. GERD. 7. Hemorrhoids. PAST SURGICAL HISTORY: 1. Prostatectomy. 2. Cholecystectomy. ALLERGIES: ROCURONIUM. HOME MEDICATIONS: Niacin, Prilosec, simvastatin, and Lovenox injections. FAMILY HISTORY: Sister with chronic leukemia. SOCIAL HISTORY: . Has 3 children. Lives with his spouse. Forty-pack- year history of smoking. No alcohol or illicit drug use. REVIEW OF SYSTEMS: Complains of right lower extremity pain. Otherwise, negative. PHYSICAL EXAMINATION: VITAL SIGNS: He is afebrile. Heart rate is 86, respiratory rate 18, blood pressure is 139/73. He is 96% on 2 L. GENERAL: This is a chronically ill-appearing male, in no acute distress. HEENT: Normocephalic and atraumatic. Pupils are equal and reactive to light. NECK: Supple. CV: Regular rate and rhythm. LUNGS: Clear. ABDOMEN: Soft and nontender. Bowel sounds are positive. EXTREMITIES: Right lower extremity is cold. : He has a catheter in place with yellow urine. SKIN: No rash. HEMATOLOGICAL: No petechiae or purpura. NEUROLOGICAL: Nonfocal. PERTINENT LABS AND X-RAYS: Current WBCs are 12.7, hemoglobin 8.6, hematocrit 26.1, platelet count 254,000. He has 77% neutrophils, 12% lymphocytes. PT is 14.0, INR is 1.1, and PTT is 29.7. Sodium is 135, potassium 3.9, chloride 102, CO2 is 22 , BUN is 10, creatinine 0.63, calcium is 7.8, bilirubin 5.8, AST is 41, ALT is 83, alkaline phosphatase is 1175. Serum total protein 5.5, albumin 2.8, globulin 2.7. ASSESSMENT: 1. Stage IV pancreatic cancer. 2. Femoral artery thrombus. 3. Obstructive jaundice, status post biliary stents last Monday. 4. Bilateral pulmonary embolism at time of diagnosis of cancer. DISCUSSION: He remains in the critical care on heparin drip. CV is managing his right lower extremity. The patient has had quite a bit difficulty over the last several weeks. His tumor has grown quite aggressively causing biliary obstruction. On CT scan this admission, his liver lesions are worse from prior scan dated 04/23/19. Unfortunately, he has not had any chemo yet. We will recheck his bilirubin tomorrow. Hopefully, it will normalize and he will be able to get chemo within the next week. Case has been discussed with Dr. Kerr. Job ID: [id number] [facility]
[2019-05-21] MEDS: Insulin Regular 300 UNITS/3 ML VIAL SC PRN (20:25)
[2019-05-21] MEDS ORDERED: FLU VACC QS2019-20(6MOS UP)/PF 60 MCG/0.5 ML SYRINGE IM ONE (21:00)
[2019-05-22] MEDS: Sodium Chloride 0.9% 1,000 ML IV SCH (03:27)
[2019-05-22] MEDS: Ketorolac Tromethamine 30 MG/ML VIAL IVP SCH ×3 (05:07→19:50)
[2019-05-22 05:48] LABS: INR-International Normal Ratio 1.1; PTT 34.8 SEC (22.9-36.1); Prothrombin Time 14.1 SEC (12.0-14.7)
[2019-05-22 06:03] LABS: Anion Gap 13 mmol/L (10-20); BUN (Urea Nitrogen) 10 mg/dL (8.4-25.7); Calc. Creatinine Clearance 118 mL/min (70-130); Calcium 7.6 mg/dL (7.8-10.44); Carbon Dioxide 24 mmol/L (22-29); Chloride 101 mmol/L (98-107); Estimated GFR-MDRD Greater than 90; Glucose 103 mg/dL (70-105); Potassium 3.7 mmol/L (3.5-5.1); Sodium 134 mmol/L (136-145)
[2019-05-22 06:17] LABS: Band 3 % (5-11); Eosinophils 2 % (0-10); Hemoglobin 7.4 g/dL (14.0-18.0); Lymphocytes 9 % (21-51); MDiff Complete? YES; Mean Corpuscular HGB CONC 32.9 g/dL (32.0-36.0); Mean Corpuscular Volume 88.2 fL (78.0-98.0); Mean Platelet Volume 7.6 fL (7.4-10.4); Metamyelocyte 1 % (0-0); Monocytes 6 % (0-10); Neutrophil 79 % (42-75); Platelet Count 258 thou/uL (130-400); Platelet Morphology Comment Appears Adequate; RBC Distribution Width 15.3 % (11.5-14.5); RBC Morphology Normal; Red Blood Cell (RBC) Count 2.55 mill/uL (4.70-6.10); White Blood Cell (WBC) Count 10.7 thou/uL (4.8-10.8)
[2019-05-22] MEDS: CIPROFLOXACIN 500 MG PO SCH ×2 (07:58→19:51)
[2019-05-22] MEDS: Docusate 100 MG CAP PO SCH (07:58)
[2019-05-22] MEDS: Aspirin Chewable 81 MG TAB PO SCH (07:58)
[2019-05-22] MEDS: Enoxaparin Sodium 60 MG/0.6 ML SYRINGE SC SCH ×2 (08:21→19:50)
--- NOTE | 2019-05-22 09:52 | PDOC.MOPN ---
Interval History: C/o pain RLE. tolerating po. - Vital Signs Vital Signs: Vital Signs (12 hours) Temp Pulse Resp BP Pulse Ox 05/22/19 08:30 99.3 F 82 22 H 151/78 H 97 05/22/19 08:15 99.3 F 84 18 137/78 96 05/22/19 07:00 99.0 F 05/22/19 04:00 99.1 F 05/21/19 23:00 98.9 F Weight Admit Weight 135 lb 5.821 oz Weight 135 lb 5.821 oz Most Recent Monitor Data Heart Rate from ECG 83 NIBP 157/73 NIBP BP-Mean 101 Respiration from ECG 21 SpO2 96 - Physical Exam General: Alert, Oriented x3, No acute distress HEENT: Atraumatic, PERRLA, EOMI, Mucous membr. moist/pink Lungs: Clear to auscultation, Normal air movement Cardiovascular: Regular rate, Normal S1, Normal S2, No murmurs, Gallops, Rubs Abdomen: Normal bowel sounds, Soft, No tenderness, No hepatospenomegaly, No masses Extremities: Other (RLE cold, no pulses below knee) Neurological: Normal speech Psych/Mental Status: Mental status NL, Mood NL - Labs Result Diagrams: 05/22/19 05:30 05/22/19 05:30 Lab results: Laboratory Results - last 24 hr 05/22/19 05:31: PT 14.1, INR 1.1, APTT 34.8 05/22/19 05:30: WBC 10.7, RBC 2.55 L, Hgb 7.4 L, Hct 22.5 L, MCV 88.2, MCH 29.0 , MCHC 32.9, RDW 15.3 H, Plt Count 258, MPV 7.6, Neutrophils % (Manual) 79 H, Band Neuts % (Manual) 3 L, Lymphocytes % (Manual) 9 L, Monocytes % (Manual) 6, Eosinophils % (Manual) 2, Metamyelocytes % (Man) 1 H, Plt Morphology Comment Appears Adequate, RBC Morph Comment Normal 05/22/19 05:30: Sodium 134 L, Potassium 3.7, Chloride 101, Carbon Dioxide 24, Anion Gap 13, BUN 10, Creatinine 0.58 L, Estimated GFR (MDRD) Greater than 90, Glucose 103, Calcium 7.6 L 05/21/19 20:15: POC Glucose 214 H 05/21/19 17:11: POC Glucose 147 H 05/21/19 12:03: POC Glucose 146 H 05/21/19 11:12: PT 14.0, INR 1.1, APTT 29.7 05/20/19 18:07: POC Glucose 61 L 05/20/19 18:00: Specimen Type ARTERIAL, Puncture Site MONTSE, Bicarbonate Actual 20.5 L, ABG pH 7.44, ABG pCO2 30.8 L, ABG pO2 167.9 H, ABG O2 Sat Calc/Pablo 99.5 H, ABG O2 Content 10.2 L, ABG Base Excess -3.2 L, ABG Hematocrit 21.0 L, ABG Hemoglobin 7.1 L, ABG Oxyhemoglobin 97.9, ABG Carboxyhemoglobin 1.3, ABG Methemoglobin 0.30, ABG Deoxyhemoglobin 0.5, Sodium 137, Potassium 2.58 L, Chloride 110 H, Ionized Calcium 0.99 L, Mode of Support OR ABG 05/20/19 16:50: Blood Type AB POSITIVE, Antibody Screen NEGATIVE, Crossmatch See Detail Status: lab reviewed by me A/P - Problem (1) Pancreatic adenocarcinoma Current Visit: Yes Code(s): C25.9 - MALIGNANT NEOPLASM OF PANCREAS, UNSPECIFIED Status: Acute (2) Bilateral pulmonary embolism Current Visit: No Code(s): I26.99 - OTHER PULMONARY EMBOLISM WITHOUT ACUTE COR PULMONALE Status: Acute (3) Femoral artery thrombosis, right Current Visit: Yes Code(s): I74.3 - EMBOLISM AND THROMBOSIS OF ARTERIES OF THE LOWER EXTREMITIES Status: Acute (4) Hyperbilirubinemia Current Visit: Yes Code(s): E80.6 - OTHER DISORDERS OF BILIRUBIN METABOLISM Status: Acute - Plan Plan: 1. Heparin gtt dc'd, on therapeutic lovenox 2. poss further surgery in am for RLE 3. Recheck CMP in am, bilirubin improving since stent placement 4. Poss Gemzar chemotherapy prior to dc home.
[2019-05-22] MEDS: Insulin Regular 300 UNITS/3 ML VIAL SC PRN ×2 (11:26→19:57)
[2019-05-22 12:19] LABS: ALT (SGPT) 55 U/L (8-55); AST (SGOT) 45 U/L (5-34); Albumin 2.4 g/dL (3.5-5.0); Alkaline Phosphatase 919 U/L (40-110); Bilirubin, Direct 3.4 mg/dL (0.1-0.3); Bilirubin, Total 4.5 mg/dL (0.2-1.2); Protein, Total 4.9 g/dL (6.0-8.3)
[2019-05-22] MEDS ORDERED: SODIUM CHLORIDE 0.9% IVPB SCH (18:45)
[2019-05-22] MEDS ORDERED: GEMZAR IVPB SCH (18:45)
[2019-05-22] MEDS ORDERED: Ondansetron HCl/PF 10 MG in Sodium Chloride 0.9% 50 ML IVPB SCH (18:45)
[2019-05-22] MEDS ORDERED: Dexamethasone 10 MG in Sodium Chloride 0.9% 50 ML IVPB SCH (18:45)
--- NOTE | 2019-05-22 20:19 | PRG ---
DATE OF SERVICE: 05/22/2019 SUBJECTIVE: Overall, the patient feels fine. He does not have a good appetite , but able to tolerate diet without nausea or vomiting. He denies abdominal pain. I placed a metal Wallstent in his bile duct 5 days ago for biliary obstruction caused by pancreatic cancer. Since that time, his jaundice is less. His dark urine has resolved. OBJECTIVE: VITAL SIGNS: Temperature is 98.6, blood pressure 151/85, pulse of 70. GENERAL: He is alert, conversant, in no distress. HEENT: Shows mildly icteric sclerae. NECK: Supple. CARDIOVASCULAR: Shows normal S1, S2. Regular rate and rhythm. CHEST: Shows breath sounds. ABDOMEN: Mildly protuberant, but no distention. No tympany. He has active bowel sounds. No tenderness. LABORATORY DATA: WBCs 10.7, hemoglobin 7.4, platelet count 258. His electrolytes within normal range. Bilirubin is 4.5, down from 13.4 one week ago, AST 45, ALT 55. ASSESSMENT: 1. Metastatic pancreatic cancer with distal common duct obstruction, status post biliary Wallstent placement 5 days ago with excellent drainage. His bilirubin is coming down. This may not normalize as he has liver metastasis, which could cause intrahepatic biliary obstruction in smaller ducts. His liver enzymes are normalizing nicely. 2. Femoral artery thrombosis, status post thrombectomy and revascularization procedure. 3. Overall, gastrointestinal function is intact. RECOMMENDATION: 1. No new GI recommendation and input. Biliary stent appears to be draining well. From my standpoint, he could start on chemo anytime as his biliary obstruction is resolved. 2. Please call if any other assistance is needed. Job ID: [id number] [facility]
[2019-05-23] MEDS: Ketorolac Tromethamine 30 MG/ML VIAL IVP SCH ×5 (01:00→23:40)
[2019-05-23 07:19] LABS: #Eosinphils 0.4 thou/uL (0.0-0.7); #Lymphocytes 0.9 thou/uL (1.20-3.40); #Monocytes 0.9 thou/uL (0.11-0.59); %Basophils 0.1 % (0.0-1.0); %Eosinophils 3.5 % (0.0-10.0); %Lymphocytes 7.4 % (21.0-51.0); Hemoglobin 9.2 g/dL (14.0-18.0); Mean Corpuscular HGB CONC 33.1 g/dL (32.0-36.0); Mean Corpuscular Hemoglobin 29.5 pg (27.0-31.0); Mean Corpuscular Volume 89.1 fL (78.0-98.0); Mean Platelet Volume 7.9 fL (7.4-10.4); Platelet Count 297 thou/uL (130-400); RBC Distribution Width 14.7 % (11.5-14.5); Red Blood Cell (RBC) Count 3.13 mill/uL (4.70-6.10); White Blood Cell (WBC) Count 12.1 thou/uL (4.8-10.8)
[2019-05-23 07:39] LABS: ALT (SGPT) 65 U/L (8-55); AST (SGOT) 55 U/L (5-34); Albumin 2.4 g/dL (3.5-5.0); Alkaline Phosphatase 1086 U/L (40-110); Anion Gap 13 mmol/L (10-20); BUN (Urea Nitrogen) 8 mg/dL (8.4-25.7); Bilirubin, Total 4.6 mg/dL (0.2-1.2); Calc. Creatinine Clearance 114 mL/min (70-130); Calcium 7.9 mg/dL (7.8-10.44); Carbon Dioxide 23 mmol/L (22-29); Chloride 101 mmol/L (98-107); Estimated GFR-MDRD Greater than 90; Globulin 2.6 g/dL (2.4-3.5); Glucose 139 mg/dL (70-105); Potassium 3.7 mmol/L (3.5-5.1); Sodium 133 mmol/L (136-145)
[2019-05-23] MEDS: CIPROFLOXACIN 500 MG PO SCH ×2 (08:20→17:17)
[2019-05-23] MEDS: Aspirin Chewable 81 MG TAB PO SCH (09:20)
[2019-05-23] MEDS: Enoxaparin Sodium 60 MG/0.6 ML SYRINGE SC SCH ×2 (09:20→19:59)
[2019-05-23] MEDS: Docusate 100 MG CAP PO SCH (09:21)
[2019-05-23] MEDS ORDERED: Calcium Carbonate 500 MG ChewTAB PO PRN (10:32)
--- NOTE | 2019-05-23 11:06 | PDOC.MOPN ---
Interval History: right foot less mottled, able to walk without pain. C/o indigestion. - Vital Signs Vital Signs: Vital Signs (12 hours) Temp Pulse Resp BP BP Pulse Ox 05/23/19 08:05 98.1 F 96 16 151/71 H 95 05/23/19 04:00 98.2 F 88 16 139/66 96 Weight Admit Weight 135 lb 5.821 oz Weight 135 lb 5.821 oz Most Recent Monitor Data Heart Rate from ECG 70 NIBP 155/76 NIBP BP-Mean 102 Respiration from ECG 22 SpO2 99 - Physical Exam General: Alert, Oriented x3, No acute distress HEENT: Atraumatic, PERRLA, EOMI, Mucous membr. moist/pink Lungs: Clear to auscultation, Normal air movement Cardiovascular: Regular rate, Normal S1, Normal S2, No murmurs, Gallops, Rubs Abdomen: Normal bowel sounds, Soft, No tenderness, No hepatospenomegaly, No masses Extremities: No clubbing, Other (rle cold) Skin: No rashes, No breakdown, No significant lesion Neurological: Normal gait, Normal speech, Strength at 5/5 X4 ext, Normal tone, Sensation intact, Cranial nerves 3-12 NL, Reflexes 2+ Psych/Mental Status: Mental status NL, Mood NL - Labs Result Diagrams: 05/23/19 07:00 05/23/19 07:00 Lab results: Laboratory Results - last 24 hr 05/23/19 07:00: WBC 12.1 H, RBC 3.13 L, Hgb 9.2 L, Hct 27.9 L, MCV 89.1, MCH 29.5, MCHC 33.1, RDW 14.7 H, Plt Count 297, MPV 7.9, Neutrophils % 82.0 H, Lymphocytes % 7.4 L, Monocytes % 7.0, Eosinophils % 3.5, Basophils % 0.1, Neutrophils # 10.0 H, Lymphocytes # 0.9 L, Monocytes # 0.9 H, Eosinophils # 0.4 , Basophils # 0.0 05/23/19 07:00: Sodium 133 L, Potassium 3.7, Chloride 101, Carbon Dioxide 23, Anion Gap 13, BUN 8 L, Creatinine 0.60 L, Estimated GFR (MDRD) Greater than 90 , Glucose 139 H, Calcium 7.9, Total Bilirubin 4.6 H, AST 55 H, ALT 65 H, Alkaline Phosphatase 1086 H, Serum Total Protein 5.0 L, Albumin 2.4 L, Globulin 2.6, Albumin/Globulin Ratio 0.9 L 05/23/19 06:00: POC Glucose 140 H 05/22/19 20:00: POC Glucose 263 H 05/22/19 16:24: POC Glucose 124 H 05/22/19 11:29: POC Glucose 218 H 05/22/19 05:30: Total Bilirubin 4.5 H, Direct Bilirubin 3.4 H, AST 45 H, ALT 55 , Alkaline Phosphatase 919 H, Serum Total Protein 4.9 L, Albumin 2.4 L 05/20/19 16:50: Crossmatch See Detail Status: lab reviewed by me A/P - Problem (1) Pancreatic adenocarcinoma Current Visit: Yes Code(s): C25.9 - MALIGNANT NEOPLASM OF PANCREAS, UNSPECIFIED Status: Acute (2) Bilateral pulmonary embolism Current Visit: No Code(s): I26.99 - OTHER PULMONARY EMBOLISM WITHOUT ACUTE COR PULMONALE Status: Acute (3) Femoral artery thrombosis, right Current Visit: Yes Code(s): I74.3 - EMBOLISM AND THROMBOSIS OF ARTERIES OF THE LOWER EXTREMITIES Status: Acute (4) Hyperbilirubinemia Current Visit: Yes Code(s): E80.6 - OTHER DISORDERS OF BILIRUBIN METABOLISM Status: Acute - Plan Plan: 1. continue ambulation 2. chemo either today or tomorrow am 3. ok to dc from our perspective after chemo 4. add protonix
--- NOTE | 2019-05-23 12:03 | PDOC.PALCO ---
Palliative Care Consult - Consult Details Requesting Physician: Dr Menendez Reason for Consult: goals of care, advance directives assistance Family Members Present: Daughter and son-in-law - Allergies Allergies/Adverse Reactions: Allergies Allergy/AdvReac Type Severity Reaction Status Date / Time rocuronium Allergy Severe Anaphylaxis Verified 05/21/19 01:22 artificial sweeteners Allergy Intermediate Diarrhea Uncoded 05/21/19 17:41 - Objective Vital Signs: Vital Signs - Most Recent Temp Pulse Resp BP Pulse Ox 98.1 F 96 16 151/71 H 95 05/23/19 08:05 05/23/19 08:05 05/23/19 08:05 05/23/19 08:05 05/23/19 08:05 - Plan/Recommendations Plan: [] minutes spent on this encounter with >50% of the time in counseling and coordination of care. Thank you for this very appropriate consult.
[2019-05-23] MEDS: Insulin Regular 300 UNITS/3 ML VIAL SC PRN ×3 (12:21→21:12)
[2019-05-23] MEDS ORDERED: GEMZAR IVPB SCH (15:00)
[2019-05-23] MEDS ORDERED: SODIUM CHLORIDE 0.9% IVPB SCH (15:00)
[2019-05-23] MEDS ORDERED: Ondansetron HCl/PF 10 MG in Sodium Chloride 0.9% 50 ML IVPB SCH (15:00)
[2019-05-23] MEDS ORDERED: Dexamethasone 10 MG in Sodium Chloride 0.9% 50 ML IVPB SCH (15:00)
[2019-05-23] MEDS ORDERED: hydrALAZINE 20 MG/ML VIAL SLOW IVP SCH (20:45)
[2019-05-24 04:19] LABS: #Basophils 0.1 thou/uL (0.0-0.2); #Lymphocytes 0.6 thou/uL (1.20-3.40); #Monocytes 0.6 thou/uL (0.11-0.59); #Neutrophils 9.8 thou/uL (1.40-6.50); %Basophils 0.5 % (0.0-1.0); %Eosinophils 0.3 % (0.0-10.0); %Lymphocytes 5.5 % (21.0-51.0); %Monocytes 5.6 % (0.0-10.0); %Neutrophils 88.1 % (42.0-75.0); Hemoglobin 9.2 g/dL (14.0-18.0); Mean Corpuscular HGB CONC 33.2 g/dL (32.0-36.0); Mean Corpuscular Hemoglobin 29.6 pg (27.0-31.0); Mean Corpuscular Volume 89.2 fL (78.0-98.0); Mean Platelet Volume 8.1 fL (7.4-10.4); Platelet Count 338 thou/uL (130-400); RBC Distribution Width 14.6 % (11.5-14.5); Red Blood Cell (RBC) Count 3.11 mill/uL (4.70-6.10); White Blood Cell (WBC) Count 11.1 thou/uL (4.8-10.8)
[2019-05-24 04:42] LABS: ALT (SGPT) 65 U/L (8-55); AST (SGOT) 36 U/L (5-34); Albumin 2.4 g/dL (3.5-5.0); Alkaline Phosphatase 1085 U/L (40-110); Anion Gap 12 mmol/L (10-20); BUN (Urea Nitrogen) 17 mg/dL (8.4-25.7); Bilirubin, Total 3.5 mg/dL (0.2-1.2); Calc. Creatinine Clearance 108 mL/min (70-130); Carbon Dioxide 23 mmol/L (22-29); Chloride 99 mmol/L (98-107); Estimated GFR-MDRD Greater than 90; Globulin 2.5 g/dL (2.4-3.5); Glucose 360 mg/dL (70-105); Potassium 4.4 mmol/L (3.5-5.1); Protein, Total 4.9 g/dL (6.0-8.3); Sodium 130 mmol/L (136-145)
[2019-05-24] MEDS: Ketorolac Tromethamine 30 MG/ML VIAL IVP SCH (06:20)
[2019-05-24] MEDS: Insulin Regular 300 UNITS/3 ML VIAL SC PRN (06:21)
--- NOTE | 2019-05-24 08:14 | DIS ---
DATE OF ADMISSION: 05/20/2019 DATE OF DISCHARGE: 05/24/2019 PRINCIPAL DIAGNOSIS: Acute right lower extremity arterial insufficiency. SECONDARY DIAGNOSES: 1. Metastatic pancreatic cancer. 2. Obstructive jaundice. 3. Hypercoagulable syndrome. 4. History of deep venous thrombosis. 5. Diabetes. PROCEDURES PERFORMED: Right iliofemoral thrombectomy, left femoral endarterectomy, and femoral-femoral bypass with reverse greater saphenous vein graft on 05/20/2019; right iliofemoral and femoral popliteal thrombectomy, right popliteal endarterectomy of bovine pericardial patch angioplasty and right common femoral artery to suprageniculate popliteal artery bypass with reverse saphenous vein graft on 05/21/2019. HISTORY OF PRESENT ILLNESS AND HOSPITAL COURSE: The patient is a 59-year-old man with recently diagnosed metastatic pancreatic carcinoma that has proven to be fairly aggressive based upon progression of tumor burden in his liver. He had been started on subcutaneous Lovenox because of bilateral posterior tibial vein thrombi in the face of obstructive jaundice. He had just undergone biliary stenting a few days earlier when he developed fairly sudden onset of pain and paresthesias in his right foot. They subsided, but did not completely resolve in the next day. His foot was no longer painful and he was able to walk, but it was noticeably cooler and had some mottling to it. He was found to have absence of a right femoral pulse and CT angiography suggested acute thrombosis superimposed on an underlying proximal external iliac artery lesion. He underwent urgent revascularization that evening and saphenous vein was used for the crossover graft from his endarterectomized left femoral artery to his thrombectomized right femoral artery. Given concerns about progression of ischemic symptoms, if he were not revascularized and concerns about wound healing on chemotherapy. He initially had dramatic improvement in the capillary refill in his foot and an easily dopplerable posterior tibial pulse in that foot. However, about 3 or 4 hours postoperatively, he had sudden onset of pain and pallor in that foot and he had lost his posterior tibial pulse. He was returned to the operating room and underwent a repeat thrombectomy and bypass of his superficial femoral artery to the endarterectomized popliteal. Intraoperatively, there was a bit of difficulty in passing the Rebeca catheter from the knee down to the foot, but it was done successfully and he again had a dopplerable posterior tibial pulse in the foot in the operating room. However, by the time he arrived in the ICU, it had been lost in spite of having a good popliteal pulse by Doppler and an easily palpable pulse in the crossover limb of the graft, feeling now that this represented issues related to his hypercoagulable syndrome as much as intrinsic peripheral vascular disease. He was started on low-dose heparin rather than pursuing any other surgical options. He tolerated that and he was transitioned back to his preoperative dose of Lovenox. He was transferred out of the intensive care unit as he had no signs of bleeding into his wounds and his foot color improved and the level of activity improved. He started his chemotherapy, which he tolerated reasonably well and he is now being discharged home. Job ID: [id number]
[2019-05-24] MEDS: CIPROFLOXACIN 500 MG PO SCH (08:27)
[2019-05-24 08:44] VITALS: BP 159/67; TEMP 97.5
[2019-05-24] MEDS: Docusate 100 MG CAP PO SCH (09:27)
[2019-05-24] MEDS: Enoxaparin Sodium 60 MG/0.6 ML SYRINGE SC SCH (09:27)
[2019-05-24] MEDS: Aspirin Chewable 81 MG TAB PO SCH (09:27)
== END 2019-05-24 10:31 | disposition home or self-care (01) | DRG 271 ==
LOC: ERS 10:26 → SDC 16:01 → SURG A 20:22 → CCU 21:50 → ONC 05-22 17:30
PROVIDERS: ADMIT Thoracic Surgery (Cardiothoracic Vascular Surgery); ATTEND Thoracic Surgery (Cardiothoracic Vascular Surgery)
PROC: 04CK0ZZ Extirpation of Matter from Right Femoral Artery, Open Approach (ICD-10-PCS; 2019-05-20)
PROC: 041 Lower Arteries, Bypass (ICD-10-PCS; 2019-05-20)
PROC: 06BP0ZZ Excision of Right Saphenous Vein, Open Approach (ICD-10-PCS; 2019-05-20)
PROC: 04CL0ZZ Extirpation of Matter from Left Femoral Artery, Open Approach (ICD-10-PCS; 2019-05-20)
PROC: 04CM3ZZ Extirpation of Matter from Right Popliteal Artery, Percutaneous Approach (ICD-10-PCS; principal; 2019-05-21)
PROC: 04CK3ZZ Extirpation of Matter from Right Femoral Artery, Percutaneous Approach (ICD-10-PCS; 2019-05-21)
PROC: 04U Lower Arteries, Supplement (ICD-10-PCS; 2019-05-21)
PROC: 041 Lower Arteries, Bypass (ICD-10-PCS; 2019-05-21)
PROC: 06BQ4ZZ Excision of Left Saphenous Vein, Percutaneous Endoscopic Approach (ICD-10-PCS; 2019-05-21)
PROC: 07BJ3ZX Excision of Left Inguinal Lymphatic, Percutaneous Approach, Diagnostic (ICD-10-PCS; 2019-05-21)
PROC: 30233N1 Transfusion of Nonautologous Red Blood Cells into Peripheral Vein, Percutaneous Approach (ICD-10-PCS; 2019-05-22)
DX: E11.51 Type 2 diabetes mellitus with diabetic peripheral angiopathy without gangrene (principal); C25.9 Malignant neoplasm of pancreas, unspecified; C78.7 Secondary malignant neoplasm of liver and intrahepatic bile duct; D68.59 Other primary thrombophilia; Z51.5 Encounter for palliative care; I74.3 Embolism and thrombosis of arteries of the lower extremities; I82.443 Acute embolism and thrombosis of tibial vein, bilateral; K21.9 Gastro-esophageal reflux disease without esophagitis; E78.5 Hyperlipidemia, unspecified; E80.6 Other disorders of bilirubin metabolism; E78.00 Pure hypercholesterolemia, unspecified; Z86.711 Personal history of pulmonary embolism; Z79.01 Long term (current) use of anticoagulants; Z79.899 Other long term (current) drug therapy; Z85.46 Personal history of malignant neoplasm of prostate; Z90.49 Acquired absence of other specified parts of digestive tract; Z79.4 Long term (current) use of insulin; Z88.8 Allergy status to other drugs, medicaments and biological substances; Z87.891 Personal history of nicotine dependence
CPT/HCPCS: 36415; 36416; 36430; 75635; 80048; 80053; 80076; 82550; 82805; 85025; 85610; 85730; 86850; 86900; 86901; 88304; 88305; 93005; 93923; J0360; J1100; J1170; J1200; J1642; J1644; J1650; J1815; J1885; J2001; J2405; J2704; J2720; J3010; J7050; J9201; P9016; Q9966

== ENCOUNTER 2019-06-13 19:59 | Inpatient (IN) | payer OTHER, SELFPAY ==
[~2019-06-13 19:59] MED LIST changes: +Acetaminophen 500 MG TAB PO SCH; +Famotidine/PF 20 mg/2ml Vial ONE; +Furosemide 40 MG/4 ML VIAL ONE; -ISOVUE-370 76%-LOCM 1 ML ONE; +Prevnar 13-Val Conj/PF 0.5 ML SYRINGE IM ONE; +diphenhydrAMINE 25 MG CAP PO SCH; +diphenhydrAMINE 50 MG/ML VIAL ONE
[2019-06-13] MEDS ORDERED: Acetaminophen 325 MG TAB ONE (20:28)
[2019-06-13 21:16] LABS: ALT (SGPT) 48 U/L (8-55); AST (SGOT) 40 U/L (5-34); Albumin 3.1 g/dL (3.5-5.0); Alkaline Phosphatase 738 U/L (40-110); Anion Gap 22 mmol/L (10-20); BUN (Urea Nitrogen) 15 mg/dL (8.4-25.7); Bilirubin, Total 2.4 mg/dL (0.2-1.2); Calc. Creatinine Clearance 0 mL/min (70-130); Calcium 8.8 mg/dL (7.8-10.44); Carbon Dioxide 20 mmol/L (22-29); Chloride 94 mmol/L (98-107); Estimated GFR-MDRD Greater than 90; Globulin 2.7 g/dL (2.4-3.5); Glucose 140 mg/dL (70-105); Potassium 4.9 mmol/L (3.5-5.1); Protein, Total 5.8 g/dL (6.0-8.3); Sodium 131 mmol/L (136-145)
[2019-06-13 21:17] LABS: INR-International Normal Ratio 1.1
[2019-06-13 21:20] LABS: Hemoglobin 8.7 g/dL (14.0-18.0); Mean Corpuscular HGB CONC 33.2 g/dL (32.0-36.0); Mean Corpuscular Hemoglobin 29.5 pg (27.0-31.0); Mean Platelet Volume 7.5 fL (7.4-10.4); Platelet Count 461 thou/uL (130-400); RBC Distribution Width 15.1 % (11.5-14.5); Red Blood Cell (RBC) Count 2.94 mill/uL (4.70-6.10); White Blood Cell (WBC) Count 9.9 thou/uL (4.8-10.8)
--- NOTE | 2019-06-13 21:24 | RAD ---
Chest one view HISTORY: Sepsis. FINDINGS: Cardiac silhouette and pulmonary vasculature are unremarkable. Mediastinum is midline. No c onfluent airspace consolidation or evidence of pneumothorax. Postoperative changes of the lower cervical spine. IMPRESSION: No active cardiopulmonary abnormalities are demonstrated.
[2019-06-13 21:31] LABS: Band 23 % (5-11); Eosinophils 1 % (0-10); Lymphocytes 11 % (21-51); MDiff Complete? YES; Metamyelocyte 1 % (0-0); Monocytes 5 % (0-10); Myelocyte 2 % (0-0); Neutrophil 57 % (42-75); Platelet Morphology Comment Appears Increased
[2019-06-13 22:13] LABS: Bacteria/HPF None Seen HPF (None Seen); Bilirubin Negative (Negative); Blood, Urine Negative (Negative); Clarity Clear (Clear); Glucose, Urine (Dipstick) Normal (Negative); Leukocyte Negative Leu/uL (Negative); Nitrite Negative (Negative); Protein, Urine (Dipstick) Negative (Neg-Trace); RBC/HPF None Seen HPF (0-3); Squamous Epithelial None Seen HPF (0-3); Urobilinogen Normal mg/dL (Less than 2); WBC/HPF None Seen HPF (0-3)
[2019-06-13 22:15] LABS: Urine Culture Reflex No No
--- NOTE | 2019-06-13 22:43 | PDOC.FPRHP ---
- History of Present Illness Chief Complaint: tranfusion reaction History of Present Illness: 59 yo patient w/ pmh of pancreatic cancer currently undergoing tx, PAD, DMII, was getting blood transfusion in oncology [place]. Hgb was at a 5. Had 3 bags ordered. First 2 went well. During the 3rd bag he started to get cold and shaking. Pt then was breathing fast. Temp recorded of 104.5. Pt shaking was uncontrollable. Transfusion stopped, took about 30 minutes for sxs to subside. Denies any chest pain. Denies any abdominal pain. Pt felt dizzy and woozy. Pt reports having blood in his stools.. Noticing dark tarry stools. States noticed only 2 days ago and today. Pt reports seeing CV surgery since Fem Pop bypass. Pt states they stated he was doing better. Pt reports redness edema in his right foot has been there since the procedure. Reports that it has been improving. Pt on lovenox due to blood clots in legs. ED Course: Given benadryl, IVF. - Allergies/Adverse Reactions Allergies Allergy/AdvReac Type Severity Reaction Status Date / Time rocuronium Allergy Severe Anaphylaxis Verified 05/21/19 01:22 artificial sweeteners Allergy Intermediate Diarrhea Uncoded 05/21/19 17:41 - Home Medications Medication Instructions Recorded Confirmed Type Niacin (Inositol Niacinate) 2 tab PO DAILY 02/28/19 06/14/19 History [Niacin 500 mg Capsule] Simvastatin [Zocor] 10 mg PO HS 02/28/19 06/14/19 History Fexofenadine HCl [Paulette Allergy] 180 mg PO DAILY 04/29/19 06/14/19 History HumuLIN 70/30 [HumuLIN 70/30 Vial] 30 units SC QAM 05/16/19 06/14/19 History HumuLIN 70/30 [HumuLIN 70/30 Vial] 24 units SC QPM 05/21/19 06/14/19 History Omeprazole 40 mg PO BID 05/21/19 06/14/19 History Aspirin Chewable [Aspirin Chewable 81 mg PO QAM tab 05/24/19 06/14/19 Rx Tablet] Enoxaparin Sodium [Lovenox] 60 mg SC BID 06/14/19 06/14/19 History Polyethylene Glycol 3350 [Miralax] 1 packet PO DAILY PRN 06/14/19 06/14/19 History oxyCODONE /Acetaminophen [Percocet] 1 tab PO HS PRN 06/14/19 06/14/19 History - History PMHx: Prostate Cancer with Prostatectomy, radiation multiple years later due to elevated PSA in 2017, DM 2/2 cancer, Pancreatic cancer, Hx of DVT on lovenox. Hx of cladication PSHx: Prostatectomy, Cholecystectomy, Orthopedic feet repairs bilateral, Spacers placed in cervical spine, Facial Surgery w/ titanium cheek pain, Femoral Bipass. FHx: Dad- leukemia, Mom- COPD, heart issues Social: quit smoking December 2018, 35 year history - 1ppd at most, 1 drink per day , no drugs Pt is full code - Review of Systems General: reports: fever/chills. denies: weight/appetite/sleep changes, night sweats, fatigue Eyes: denies: eye pain, vision changes ENT: denies: nasal congestion, rhinorrhea Respiratory: reports: shortness of breath. denies: cough, congestion, exercise intolerance Cardiovascular: denies: chest pain, palpitation, edema, paroxysmal nocturnal dyspnea, orthopnea Gastrointestinal: reports: GI bleeding. denies: nausea, vomiting, diarrhea, constipation, abdominal pain Genitourinary: denies: incontinence, dysuria, polyuria Skin: reports: rashes. denies: lesions, jaundice Musculoskeletal: reports: pain (In LE at times). denies: tenderness, stiffness , swelling Neurological: reports: numbness (Has some numbness in his R. LE), weakness. denies: syncope, seizure Psychological: denies: anxiety, depression - Vital signs BP: [127/64] HR: [109] RR: [20] Tmax: [100.5] Pox: [93]% on [RA] Wt: [64 kg] - Physical Exam Constitutional: NAD, awake, alert and oriented, well developed HEENT: conjunctiva clear, no scleral icterus, grossly normal vision, grossly normal hearing, MMM Neck: supple, trachea midline, no LAD, no JVD Heart: RRR, normal S1/S2, no murmurs/rubs/gallops, pulses present (decreased in RLE), no edema Lungs: CTAB, no respiratory distress, good air movement, no rales/rhonchi, no wheezing Abdomen: soft, non-tender, bowel sounds present Musculoskeletal: normal structure Neurological: no focal deficit Skin: other (RLE healing surgical wound. Healing by secondary intention. Surrounding erythema and 1+ pitting edema. No warmth. Decreased pulse to that ext as compared to Left.) Heme/Lymphatic: no unusual bruising or bleeding, no purpura Psychiatric: normal mood and affect, good judgment and insight, intact recent and remote memory FMR H&P: Results - Labs Result Diagrams: 06/14/19 05:38 06/14/19 05:38 Lab results: WBC 9.9 thou/uL (4.8-10.8) 06/13/19 19:28 Hgb 8.7 g/dL (14.0-18.0) L 06/13/19 19:28 Hct 26.1 % (42.0-52.0) L 06/13/19 19:28 MCV 89.0 fL (78.0-98.0) 06/13/19 19:28 Plt Count 461 thou/uL (130-400) H 06/13/19 19:28 Band Neuts % (Manual) 23 % (5-11) H 06/13/19 19:28 Sodium 131 mmol/L (136-145) L 06/13/19 20:53 Potassium 4.9 mmol/L (3.5-5.1) 06/13/19 20:53 Chloride 94 mmol/L (98-107) L 06/13/19 20:53 Carbon Dioxide 20 mmol/L (22-29) L 06/13/19 20:53 BUN 15 mg/dL (8.4-25.7) 06/13/19 20:53 Creatinine 0.68 mg/dL (0.7-1.3) L 06/13/19 20:53 Glucose 140 mg/dL (70-105) H 06/13/19 20:53 Lactic Acid 2.0 mmol/L (0.5-2.2) 06/13/19 21:45 Calcium 8.8 mg/dL (7.8-10.44) 06/13/19 20:53 Total Bilirubin 2.4 mg/dL (0.2-1.2) H 06/13/19 20:53 AST 40 U/L (5-34) H 06/13/19 20:53 ALT 48 U/L (8-55) 06/13/19 20:53 Alkaline Phosphatase 738 U/L (40-110) H 06/13/19 20:53 Serum Total Protein 5.8 g/dL (6.0-8.3) L 06/13/19 20:53 Albumin 3.1 g/dL (3.5-5.0) L 06/13/19 20:53 Urine Ketones Negative mg/dL (Negative) 06/13/19 20:09 Urine Blood Negative (Negative) 06/13/19 20:09 Urine Nitrite Negative (Negative) 06/13/19 20:09 Ur Leukocyte Esterase Negative Parag/uL (Negative) 06/13/19 20:09 Urine RBC None Seen HPF (0-3) 06/13/19 20:09 Urine WBC None Seen HPF (0-3) 06/13/19 20:09 Ur Squamous Epith Cells None Seen HPF (0-3) 06/13/19 20:09 Urine Bacteria None Seen HPF (None Seen) 06/13/19 20:09 - Radiology Interpretation Chest x-ray Status: image reviewed by me, report reviewed by me (No active cardiopulmonary abnormalites are demonstrated) FMR H&P: A/P - Problem List (1) Transfusion reaction Current Visit: Yes Status: Acute Code(s): T80.92XA - UNSPECIFIED TRANSFUSION REACTION, INITIAL ENCOUNTER (2) Melena Current Visit: Yes Status: Acute Code(s): K92.1 - MELENA (3) Pancreatic adenocarcinoma Current Visit: No Status: Chronic Code(s): C25.9 - MALIGNANT NEOPLASM OF PANCREAS, UNSPECIFIED - Plan 59yo CM with h/o metastatic pancreatic cancer, DMII, and PVF with recent Fem- pop to RLE presents for blood transfusion reaction. #Febrile Non-hemolytic transfusion reaction vs sepsis 2/2 RLE cellulitis - suspected Febrile Non-hemolytic transfusion reaction - Met Sirs criteria with fever 104, tachycardia during 3rd unit of pRBC - Sxs resolved with cessation of transfusion - Given benadryl and IVF in ED - will cont to monitor - will check LDH #Acute GI Bleed - Melena #2 days - Hb 6 on admission, improved to 8.7 s/p 2u pRBC - NPO for possible GI intervention - Likely GI consult in AM, known to Dr. Orantes #Anion Gap Metabolic Acidosis - AG 17, Bicarb 20 - Will check lactic acid - cont gently IVF hydration - will recheck labs in AM #PVD with recent surgery - surgery last month to RLE by Dr. Menendez - Area of erythema, Edema, decreased pulse. - Pt states wound looks better than he has previously - Consider Abx if pt continues to spike fevers or has other s/s of acute infection - Wound care consulted - WBC 8.7 #Metastatic Pancreatic Cancer - Known to Dr. Kerr, consult in AM, due for next tx in AM - Known mets to liver #DMII - Continue home long-acting insulin and placed on hyperglycemic protocol with SS - ACHS accuchecks PCP: Donell Code: Full IVF: LR @100cc/hr Diet: NPO Disposition/LOS: Admit to tele for febrile, non-hemolytic transfusion reaction, acute GI bleed. Plan to consult GI in AM. Monitor vitals closely. Anticipate hospitalization > 48 hours. FMR H&P: Upper Level - Pertinent history I was present with the Dr. Jakub Diaz during the HPI. I scribed the above document. I made edits as needed. See above. - Pertinent findings Pt resting comfortably in bed. No acute distress. Cardio: Tachy, regular rhtyhm. Resp: CTA-B, no wheezes or crackles Ext: pt has wound on right lewis. It has eschar. Redness noted. No heat felt or streaking noted. Pt reports it has actually improved over the last month. Skin: no sign of hives or anaphylaxis. - Plan Date/Time: 06/13/19 7671 I, Jayjay Mancia, PGY-3, have evaluated this patient and agree with findings/ plan as outlined by internal grinder tender resident. Pertinent changes/additions are listed here. I reviewed and edited above plan. See above for detailed plan. At this time we are admitting pt for likely transfusion related reaction. There was possible concern for sepsis yet possible source has been present for over a month and is actually improving. Wound more likely 2/2 to poor perfusion. Recently had Fem pop Bipass of PAD. Wound care consulted. Blood cx and urine cx drawn. Was given vanc in ER. Will hold for now as Vital signs have improved. May consider restarting if continues to fever. Pt also has had few day hx of bloody stools. Likely source of anemia. FOBT pending. Will trend CBC. Will likely consult GI in the AM. Pt has pancreatic cancer. Will consult oncology in the AM. Addendum - Attending - Attending Attestation Date/Time: 06/13/19 5020 I personally evaluated the patient and discussed the management with Dr. Diaz/ Gavino I agree with the History, Examination, Assessment and Plan documented above with any addition or exceptions noted below. 59 yo WM PMH recently dx metastatic pancreatic cancer. Was undergoing outpatient blood transfusion for newly dx anemia with hemoglobin of 5.Recently having black tarry stools for past 2-3 days. had receive 2 units of blood. On unit #3, became tachypnic and febrile up to 104F. At time of exam, patient and family state he is at baseline. Sx resolved with cessation of transfusion. Exam unremarkable. Labs, EKG, and CXR unremarkable. Admit to tele for febrile non- hemolytic transfusion reaction. Monitor. Likely d/c 2-3 days pending work up for melena and recovery from [facility]. Will check LDH.
[2019-06-14] MEDS ORDERED: Ondansetron PF 4 MG/2 ML Vial IVP PRN (01:37)
[2019-06-14] MEDS ORDERED: Ondansetron ODT 4 MG TAB PO PRN (01:37)
[2019-06-14] MEDS ORDERED: Calcium Carbonate 500 MG ChewTAB PO PRN (01:37)
[2019-06-14 02:04] VITALS: BMI 22.2
[2019-06-14] MEDS ORDERED: oxyCODONE/Acetaminophen 5 mg/325 mg Tablet PO PRN (04:18)
[2019-06-14] MEDS ORDERED: Dextrose 5% in Water 1,000 ML IV PRN (04:20)
[2019-06-14] MEDS ORDERED: HumaLOG 300 UNITS/3 ML VIAL SC PRN ×2 (04:20)
[2019-06-14] MEDS ORDERED: Dextrose 50% Abboject 50 ML SYRINGE SLOW IVP PRN (04:20)
[2019-06-14] MEDS: Lactated Ringer's 1,000 ML IV SCH ×2 (05:39→16:42)
[2019-06-14 06:20] LABS: Hemoglobin 6.9 g/dL (14.0-18.0); Mean Corpuscular HGB CONC 33.3 g/dL (32.0-36.0); Mean Corpuscular Hemoglobin 29.1 pg (27.0-31.0); Mean Corpuscular Volume 87.3 fL (78.0-98.0); Platelet Count 337 thou/uL (130-400); RBC Distribution Width 15.2 % (11.5-14.5); Red Blood Cell (RBC) Count 2.36 mill/uL (4.70-6.10); White Blood Cell (WBC) Count 13.7 thou/uL (4.8-10.8)
[2019-06-14 06:30] LABS: ALT (SGPT) 43 U/L (8-55); AST (SGOT) 26 U/L (5-34); Albumin 2.4 g/dL (3.5-5.0); Alkaline Phosphatase 575 U/L (40-110); Anion Gap 12 mmol/L (10-20); BUN (Urea Nitrogen) 12 mg/dL (8.4-25.7); Bilirubin, Total 1.5 mg/dL (0.2-1.2); Calc. Creatinine Clearance 119 mL/min (70-130); Calcium 8.2 mg/dL (7.8-10.44); Carbon Dioxide 26 mmol/L (22-29); Chloride 100 mmol/L (98-107); Estimated GFR-MDRD Greater than 90; Globulin 2.6 g/dL (2.4-3.5); Glucose 189 mg/dL (70-105); Potassium 3.6 mmol/L (3.5-5.1); Sodium 134 mmol/L (136-145)
[2019-06-14 08:08] LABS: Band 23 % (5-11); Hypochromia SLIGHT = 6-15 cells (100X) (0-5/hpf); Lymphocytes 5 % (21-51); MDiff Complete? YES; Metamyelocyte 3 % (0-0); Monocytes 7 % (0-10); Myelocyte 2 % (0-0); Neutrophil 58 % (42-75); Ovalocytes SLIGHT = 2-5 cells (100X) (0-1/hpf); Platelet Morphology Comment Appears Adequate; Polychromasia MODERATE = 3-4 cells (100X) (0-2/hpf); Promyelocytes 1 % (0-0); Reactive Lymphocytes 1 % (0-10)
[2019-06-14] MEDS ORDERED: Acetaminophen 325 MG TAB PO PRN (08:26)
--- NOTE | 2019-06-14 08:32 | PDOC.FM ---
- Subjective Subjective: Patient doing well this morning, resting comfortably in bed. Has scheduled chemo appt at 11am this am; per discussion with Nicole Guajardo he will likely not make it. - Objective Vital Signs & Weight: Vital Signs (12 hours) Temp Pulse Resp BP Pulse Ox 06/14/19 08:00 97.8 F 83 16 110/55 L 98 06/14/19 07:30 98 06/14/19 04:00 98.2 F 73 16 107/55 L 98 06/14/19 02:17 98 06/14/19 01:37 98.3 F 90 20 105/59 L 98 Weight Weight 64.501 kg I&O: 06/13/19 06/14/19 06/15/19 06:59 06:59 06:59 Intake Total 750 Balance 750 Result Diagrams: 06/14/19 05:38 06/14/19 05:38 EKG Reviewed by me: Yes (sinus 70s-80s) Phys Exam - Physical Examination Constitutional: NAD HEENT: moist MMs Neck: supple, full ROM Respiratory: no wheezing, clear to auscultation bilateral Cardiovascular: RRR, no significant murmur Gastrointestinal: soft, non-tender Musculoskeletal: pulses present 1+ edema right leg Neurological: normal sensation, moves all 4 limbs Psychiatric: normal affect, A&O x 3 Deviation from normal: appears jaundiced -: wound apparent on RLE,slight erythema surrounding wound, no warmth/drainage Dx/Plan (1) Diabetes mellitus Code(s): E11.9 - TYPE 2 DIABETES MELLITUS WITHOUT COMPLICATIONS Status: Chronic (2) Melena Code(s): K92.1 - MELENA Status: Acute (3) Transfusion reaction Code(s): T80.92XA - UNSPECIFIED TRANSFUSION REACTION, INITIAL ENCOUNTER Status : Acute (4) Pancreatic adenocarcinoma Code(s): C25.9 - MALIGNANT NEOPLASM OF PANCREAS, UNSPECIFIED Status: Chronic - Plan Plan: 59yo CM with h/o metastatic pancreatic cancer, DMII, and PVF with recent Fem- pop to RLE presents for non-hemolytic febrile blood transfusion reaction. #Febrile Non-hemolytic transfusion reaction - Met Sirs criteria with fever 104, tachycardia during 3rd unit of pRBC, s/p 2u due to hgb of 5 - Sxs resolved with cessation of transfusion - Given benadryl and IVF in ED - Doing well this am, afebrile since reaction - will continue to monitor #Acute GI Bleed - Melena #2 days - Hb 6 on admission, improved to 8.7 s/p 2u pRBC - NPO for possible scope - GI consulted this morning, known to Dr. Delvalle, appreciate recs #PVD with recent surgery - surgery last month to RLE by Dr. Menendez - Area of erythema, Edema, decreased pulse. - Pt states wound looks improved - Fever documented 06/13 likely due to transfusion reaction, patient has not been febrile overnight so less likely due to infection - Consider Abx if pt continues to spike fevers or has other s/s of acute infection - Wound care consulted - WBC 8.7 #Metastatic Pancreatic Cancer - Oncology consulted, patient known to Dr. Kerr, appreciate recs - Appt for chemo today at 11am, patient will likely skip this today per recs from Nicole Guajardo - Known mets to liver #DMII - Continue home long-acting insulin - hyperglycemic protocol with SS - ACHS accuchecks PCP: Donell Code: Full IVF: LR @100cc/hr Diet: NPO Dispo: inpatient, GI and oncology consults today, appreciate recs Addendum - Attending - Attending Attestation Date/Time: 06/14/19 1107 I personally evaluated the patient and discussed the management with Dr. Stoll. I agree with the History, Examination, Assessment and Plan documented above with any addition or exceptions noted below. The patient's hb has dropped again. Will transfuse additional unit. Consulting GI for eval for gi bleed.
[2019-06-14] MEDS: Loratadine 10 MG TAB PO SCH (08:44)
[2019-06-14] MEDS: Niacin 500 MG TAB PO SCH (08:45)
[2019-06-14] MEDS: HumuLIN 70/30 (300 UNITS/3 ML VIAL) SC SCH ×2 (08:49→20:28)
[2019-06-14] MEDS ORDERED: Non-Formulary Item 1 EACH (Fexofenadine Hcl [Allegra Allergy] 180 MG) PO SCH (09:00)
[2019-06-14] MEDS ORDERED: Non-Formulary Item 1 EACH (Omeprazole [Omeprazole] 40 MG) PO SCH (09:00)
[2019-06-14] MEDS ORDERED: Prevnar 13-Val Conj/PF 0.5 ML SYRINGE IM ONE (09:00)
[2019-06-14] MEDS ORDERED: diphenhydrAMINE 25 MG CAP PO SCH (12:30)
[2019-06-14] MEDS ORDERED: Acetaminophen 500 MG TAB PO SCH (12:30)
[2019-06-14] MEDS ORDERED: GoLYTELY 4,000 ml Bottle PO SCH (16:15)
--- NOTE | 2019-06-14 16:53 | CON ---
DATE OF CONSULTATION: REASON FOR CONSULT: Pancreatic cancer. HISTORY OF PRESENT ILLNESS: Mr. Mathis is a pleasant 59-year-old gentleman, who was diagnosed in April with stage IV adenocarcinoma of the pancreas with metastasis to the liver. He has had multiple complications including bilateral pulmonary emboli; right femoral artery occlusion, requiring surgical intervention; and hyperbilirubinemia, requiring biliary stent. He has received 2 cycles of Gemzar and Abraxane. His last cycle was on June 06. He presents to our clinic on Monday for routine labs prior to his next cycle. His hemoglobin was noted to be 5.1. His states that he had began to have dark stools with occasional bright red blood in the bathroom at least once daily over the last several days. He was set up at least for a blood transfusion yesterday, received 2 units with no complication. He was getting his third unit when he began to have tachycardia and rectal temperature of 104. He was taken to the emergency room for further evaluation. He was given Benadryl and Pepcid prior to transfer to the emergency room. His hemoglobin in the emergency room yesterday was 8.1, today it is 6.9. He is receiving his third unit today and was premedicated with Benadryl and Tylenol. Denies any complaints at this time. PAST MEDICAL HISTORY: 1. Stage IV pancreatic cancer. 2. Obstructive jaundice, status post biliary stents. 3. Bilateral pulmonary emboli. 4. Right femoral artery occlusion, status post surgery. 5. Diabetes, hyperlipidemia. 6. History of prostate cancer in 2006 with prostatectomy. 7. GERD. PAST SURGICAL HISTORY: 1. Prostatectomy. 2. Cholecystectomy. ALLERGIES: NO KNOWN DRUG ALLERGIES. HOME MEDICATIONS: Lasix, niacin, Prilosec, simvastatin, and Lovenox subcu b.i.d. FAMILY HISTORY: Sister had some type of chronic leukemia. SOCIAL HISTORY: , has 3 children. Lives with his spouse. 40-gbtf-bxet history of smoking. No alcohol or illicit drug use. REVIEW OF SYSTEMS: CONSTITUTIONAL: Positive for fever, chills, weight loss, and fatigue. EYES: No blurred or double vision. ENT: No pain, hoarseness, sore throat, or dysphagia. CV: No chest pain, palpitations, or syncope. RESPIRATORY: No shortness of breath, dyspnea on exertion, or orthopnea. GI: No nausea, vomiting, diarrhea, or constipation. Positive for melena. : No dysuria or hematuria. MUSCULOSKELETAL: No joint or back pain. SKIN: Positive for wound on his right leg. NEUROLOGICAL: Positive for weakness. No headache, numbness, tingling, or seizure activity. PSYCH: No anxiety or depression. PHYSICAL EXAMINATION: VITAL SIGNS: Temperature 98.4, pulse is 91, respiratory rate 20, blood pressure is 124/60. He is 98% on room air. GENERAL: This is a well-developed, well-nourished male, who appears chronically ill. He is in no acute distress. HEENT: Normocephalic and atraumatic. Pupils are equal and reactive to light. NECK: Supple. CV: Regular rate and rhythm. LUNGS: Clear. ABDOMEN: Soft, mildly tender in the right upper quadrant. EXTREMITIES: He has 1+ right lower extremity edema. SKIN: He has a wound to his right lower extremity, dressed by Wound Care. NEUROLOGICAL: Nonfocal. PSYCH: He is alert and oriented. PERTINENT LABS AND X-RAYS: Current WBCs are 13.7, hemoglobin 6.9, hematocrit 20.6, platelet count is 337, 58% neutrophils, 23% bands, and 5% lymphocytes. He has 3% metamyelocytes, 2% myelocytes, 1 promyelocyte. PT is 14 and INR is 1.1. Sodium is 134, potassium 3.6, chloride 100, CO2 is 26, BUN is 12, creatinine 0.6. Lactic acid is 2, calcium 8.2, bilirubin is 1.5, AST is 26, ALT is 43, alkaline phosphatase is 575, LDH is 83, serum total protein is 5, albumin 2.4, globulin 2.6. Urine is negative for bacteria. RADIOLOGY: Chest x-ray showed no acute process. ASSESSMENT: 1. Pancreatic adenocarcinoma, stage IV. 2. Possible gastrointestinal bleed, likely secondary to Lovenox. 3. Transfusion reaction. 4. Right lower extremity wound from prior surgery. DISCUSSION: The patient is receiving his third unit of packed RBCs with no complications. He was premedicated with Benadryl and Tylenol. He is due for chemotherapy today, but this will be postponed until he is able to be discharged home. Hopefully, he will be able to receive this dose early next week. GI has been consulted to further opinion regarding possible GI bleed. Wound Care is assisting with his right lower extremity wound. We will continue to monitor his CBC and follow his hospital course. Thank you for the consult. Job ID: [id number]
[2019-06-14 20:16] LABS: Hemoglobin 9.3 g/dL (14.0-18.0)
[2019-06-14] MEDS: Simvastatin 5 MG TAB PO SCH (20:26)
--- NOTE | 2019-06-14 21:05 | CON ---
DATE OF CONSULTATION: 06/14/2019 CONSULTING PROVIDER: Magda Stoll MD. HISTORY OF PRESENT ILLNESS: The patient is a 59-year-old male with past medical history of peripheral arterial disease, diabetes, GERD, history of DVT on Lovenox, claudication and pancreatic cancer, currently on treatment, presenting with hematochezia. He states that he was in his usual state of health until approximately 3 days ago when he began to have the appearance of bright red blood/maroon-colored stools. Initially, the blood was seen as bright red blood primarily only on the toilet paper. However, over the next 2-3 bowel movements, he started to see more darker colored blood that was both on the toilet paper and in the toilet and characterized as dark clots/"tissue" that was also in the toilet as well. The blood was seen coating the stool rather than mixed in with the stool and the blood that appears was always associated with having a bowel movement. He did not have any grossly bloody bowel movements. He denies any nausea, vomiting, fevers, chills, hematemesis, melena, abdominal pain, dysphagia, or odynophagia. However, with the appearance of this blood, he was seen by the oncologist as an outpatient and noted to have significant anemia. He was ultimately referred to have a blood transfusion and during the blood transfusion had a transfusion like reaction that ultimately prompted hospitalization. While in the hospital, he was noted to have significantly decreased H and H and despite the infusion of red blood cells, continues to have a decreased H and H concerning for active GI bleeding. Of note, the patient's last colonoscopy was performed in 2017 at [facility] with polyps removed (per the patient and his ). He does endorse a sister who has been diagnosed with colon polyps, but has not required a surgical resection of these polyps and do not appear to be higher grade. He does have a cousin with colon cancer, but no first-degree relatives. REVIEW OF SYSTEMS: A 10-category review of systems was obtained with all responses negative except for the pertinent positives as listed in HPI. PAST MEDICAL HISTORY: As per HPI. PAST SURGICAL HISTORY: Prostatectomy, cholecystectomy, bilateral feet surgery, cervical spine surgery, facial surgery with hardware in his cheek, femoral bypass. FAMILY HISTORY: He states that he has a cousin who was diagnosed with colon cancer in his 40s and 50s. Otherwise, his sister was diagnosed with colon polyps, but no other GI malignancies. SOCIAL HISTORY: He drinks approximately 1-2 alcoholic beverages per day, but denies any illicit drug use. He had been smoking tobacco approximately 1 pack per day, but quit smoking in December 2018. OUTPATIENT MEDICATIONS: Reviewed. ALLERGIES: ROCURONIUM AND ARTIFICIAL SWEETENERS. PHYSICAL EXAMINATION: VITAL SIGNS: Temperature 97.8, pulse 95 blood pressure 150/65, respiratory rate 20, saturating 97% on room air. GENERAL: The patient was lying in bed, in no acute distress. Alert and oriented x4. HEENT: Normocephalic, atraumatic. NECK: Supple. No JVD or scleral icterus noted. CARDIOVASCULAR: Regular rate and rhythm with no discernible murmurs, gallops, or rubs. RESPIRATORY: Clear to auscultation bilaterally with no discernible wheezes or rales. ABDOMEN: Normoactive bowel sounds. Soft, nontender, nondistended. EXTREMITIES: No cyanosis, clubbing, or edema in the left lower extremity. However, in the right lower extremity, he exhibited 1+/2+ pitting edema to the mid lewis. LABORATORY DATA: CBC with a white blood cell count of 13.7, hemoglobin 6.9, hematocrit 20.6, platelets 337. INR 1.1. Chemistry with a sodium 134, potassium 3.6, chloride 100, CO2 of 26, BUN 12, creatinine 0.6, glucose 189, AST 26, ALT 43, alkaline phosphatase 575, total bilirubin 1.5, albumin 2.4. IMAGING DATA: No current GI imaging is available for review. ASSESSMENT AND PLAN: The patient is a 59-year-old male with past medical history of peripheral arterial disease, diabetes, history of deep venous thrombosis on long-term anticoagulation, claudication and more recently prostate cancer and pancreatic cancer currently on treatment, presenting with hematochezia. Hematochezia. The patient is presenting with fairly acute onset of hematochezia characterized as bright red blood per rectum that was initially only on the toilet paper but progressed to more maroon-colored blood that was seen coating the stool. He recently finished a bout of chemotherapy approximately 1 week ago and had not had any difficulty with the administration of chemotherapy thus far. Given his history and pancreatic cancer, an upper GI bleed was initially suspected, but given his relatively asymptomatic status and no evidence of hypotension, the likelihood of an upper GI bleed is unlikely. However, current differential could include mucositis associated with chemotherapy administration, ischemic colitis, infectious etiology (less likely), arteriovenous malformation, Dieulafoy lesion and/or GI neoplasm (less likely given colonoscopy proximally 2 years ago). RECOMMENDATIONS: 1. We would continue to trend his H and H and transfuse as necessary to maintain an H and H of 7/21. 2. Continue to monitor clinically for signs of active GI bleeding. 3. We would place the patient on a clear liquid diet today with plans for GoLYTELY prep tonight. 4. We will plan for colonoscopy tomorrow morning for intraluminal evaluation. 5. We would avoid any NSAIDs during the hospitalization or anticoagulation for now. 6. Further recommendations to follow colonoscopy tomorrow. 7. We will continue to follow. Please call with any questions. Job ID: [id number]
[2019-06-15] MEDS: Morphine 4 MG/ML VIAL SLOW IVP PRN (01:08)
[2019-06-15] MEDS: Lactated Ringer's 1,000 ML IV SCH ×3 (01:18→22:39)
--- NOTE | 2019-06-15 05:09 | PDOC.FM ---
- Subjective Subjective: Pt up ambulating this morning using cane unassisted. States he is feeling well. Only complaint is right foot swelling. States that it goes up and down, seems to improve when moving around. Feels the erythema round his RLE incision is stable. Denies any fevers or chills. Pt finished go-lytley prep, having clear BM. - Objective Vital Signs & Weight: Vital Signs (12 hours) Temp Pulse Resp BP Pulse Ox 06/15/19 03:10 99.3 F 87 16 138/66 97 06/14/19 23:35 98.3 F 89 20 151/72 H 100 06/14/19 19:15 98.4 F 82 24 H 144/68 H 100 Weight Admit Weight 64.501 kg Weight 64.501 kg I&O: 06/13/19 06/14/19 06/15/19 06:59 06:59 06:59 Intake Total 750 950 Balance 750 950 Result Diagrams: 06/15/19 04:45 06/15/19 04:45 Phys Exam - Physical Examination Constitutional: NAD HEENT: moist MMs Neck: full ROM Respiratory: no wheezing, clear to auscultation bilateral Cardiovascular: RRR, no significant murmur Gastrointestinal: soft, non-tender Musculoskeletal: edema present (2+ pitting edema to distal RLE from mid lewis into foot) Neurological: non-focal, normal sensation, moves all 4 limbs Lymphatic: no nodes Psychiatric: normal affect, A&O x 3 Skin: cap refill <2 seconds Deviation from normal: Princess-incisional erythema, no demarcation or ascending streaks -: stable per pt Dx/Plan (1) Melena Code(s): K92.1 - MELENA Status: Acute (2) Transfusion reaction Code(s): T80.92XA - UNSPECIFIED TRANSFUSION REACTION, INITIAL ENCOUNTER Status : Acute (3) Diabetes mellitus Code(s): E11.9 - TYPE 2 DIABETES MELLITUS WITHOUT COMPLICATIONS Status: Chronic (4) Bilateral pulmonary embolism Code(s): I26.99 - OTHER PULMONARY EMBOLISM WITHOUT ACUTE COR PULMONALE Status : Acute (5) Pancreatic adenocarcinoma Code(s): C25.9 - MALIGNANT NEOPLASM OF PANCREAS, UNSPECIFIED Status: Chronic - Plan Plan: 59yo CM with h/o metastatic pancreatic cancer, DMII, and PVF with recent Fem- pop to RLE presents for non-hemolytic febrile blood transfusion reaction. #Febrile Non-hemolytic transfusion reaction - Met Sirs criteria with fever 104, tachycardia during 3rd unit of pRBC, s/p 2u due to hgb of 5 - Sxs resolved with cessation of transfusion - Given benadryl and IVF in ED - Received 3rd unit PRBC yesterday after being premedicated - no rxn #Acute GI Bleed - Melena - Hb 6 on admission, improved to 8.7 s/p 2u pRBC, further dropped to 6.9, received 3rd unit yesterday - post transfusion Hgb 9.3, was 8.7 this a.m., will continue to monitor - GI consulted yesterday, plan to take pt for colonoscopy this morning, pt made NPO and started on oral prep #PVD with recent surgery - surgery last month to RLE by Dr. Menendez - Area of erythema, Edema, decreased pulse. - Pt states wound looks improved - Fever documented 06/13 likely due to transfusion reaction, patient has not been febrile overnight so less likely due to infection - Consider Abx if pt continues to spike fevers or has other s/s of acute infection - Wound care consulted - WBC 8.7 #Metastatic Pancreatic Cancer - Oncology consulted, patient known to Dr. Kerr, appreciate recs - Deferring further chemo tx until pt able to be dc'd - Known mets to liver #DMII - Continue home long-acting insulin - hyperglycemic protocol with SS - ACHS accuchecks PCP: Donell Code: Full IVF: LR @100cc/hr Diet: NPO Dispo: inpatient, GI and oncology consulting, colonoscopy scheduled for today, holding off on chemo tx
[2019-06-15 05:24] LABS: ALT (SGPT) 40 U/L (8-55); AST (SGOT) 28 U/L (5-34); Albumin 2.5 g/dL (3.5-5.0); Alkaline Phosphatase 580 U/L (40-110); Anion Gap 13 mmol/L (10-20); BUN (Urea Nitrogen) 7 mg/dL (8.4-25.7); Bilirubin, Total 1.4 mg/dL (0.2-1.2); Calc. Creatinine Clearance 135 mL/min (70-130); Calcium 8.2 mg/dL (7.8-10.44); Carbon Dioxide 27 mmol/L (22-29); Chloride 97 mmol/L (98-107); Estimated GFR-MDRD Greater than 90; Globulin 2.5 g/dL (2.4-3.5); Glucose 76 mg/dL (70-105); Potassium 3.6 mmol/L (3.5-5.1); Sodium 133 mmol/L (136-145)
[2019-06-15 05:45] LABS: Band 14 % (5-11); Eosinophils 3 % (0-10); Hemoglobin 8.7 g/dL (14.0-18.0); Lymphocytes 4 % (21-51); MDiff Complete? YES; Mean Corpuscular HGB CONC 33.8 g/dL (32.0-36.0); Mean Corpuscular Volume 85.8 fL (78.0-98.0); Mean Platelet Volume 6.8 fL (7.4-10.4); Monocytes 7 % (0-10); Myelocyte 1 % (0-0); Neutrophil 71 % (42-75); Platelet Count 343 thou/uL (130-400); Platelet Morphology Comment Appears Adequate; RBC Distribution Width 15.3 % (11.5-14.5); RBC Morphology Normal
[2019-06-15] MEDS ORDERED: Fentanyl 100 MCG/2 ML VIAL ONE (08:07)
[2019-06-15] MEDS ORDERED: Midazolam HCl 2 mg/2 ml Vial ONE (08:14)
[2019-06-15] MEDS ORDERED: Ketamine 50 MG/ML (10ML VIAL) ONE (08:14)
[2019-06-15] MEDS ORDERED: Promethazine HCl 25 MG/ML VIAL SLOW IVP PRN (08:32)
[2019-06-15] MEDS ORDERED: Ondansetron HCl/PF 4 MG/2 ML Vial IVP PRN (08:32)
[2019-06-15] MEDS ORDERED: HYDROmorphone 2 MG/ML VIAL SLOW IVP PRN (08:32)
[2019-06-15] MEDS ORDERED: Promethazine HCl 25 MG/ML VIAL IM PRN (08:32)
--- NOTE | 2019-06-15 09:27 | OP ---
DATE OF PROCEDURE: 06/15/2019 PROCEDURE PERFORMED: Colonoscopy with control of hemorrhage. INDICATIONS FOR PROCEDURE: Hematochezia and anemia. DESCRIPTION OF PROCEDURE: After the risks and benefits of the procedure were explained to the patient including risks of bleeding, infection, perforation, reactions to anesthesia, aspiration, and/or pain, informed consent was obtained. The patient was then taken to the endoscopy suite, where deep sedation was administered via propofol and anesthesia support. Once adequate sedation was achieved, a digital rectal examination was performed followed by introduction of the standard colonoscope which was then advanced to the terminal ileum with some difficulty that required manual abdominal pressure to facilitate passage of the scope secondary to colon redundancy and laxity. The quality of the prep was good with a mild amount of semi-solid and liquid stool that was amenable to irrigation and suctioning. The patient tolerated the procedure well with no immediate perioperative complications. Upon conclusion of the procedure, the patient was taken to PACU in satisfactory condition. FINDINGS: Digital rectal exam: Small erythematous external hemorrhoids were seen on external examination with a minimal amount of oozing of blood. There were no other abnormalities. Colon findings: Normal-appearing mucosa was seen within the terminal ileum as well as at the ileocecal valve and appendiceal orifice. Normal-appearing mucosa was then seen within the cecum, ascending, transverse, descending, and sigmoid colons. A mild amount of small telangiectasias were seen within the distal rectum extending to approximately 5 cm past the anal verge. None of which exhibited any stigmata of active or recent bleeding. However, given his recent episode of hematochezia and the presence of radiation proctitis, these were intervened upon with argon plasma coagulation with good hemostasis achieved. On rectal retroflexion, xlrvw-xn-nivkcs-sized internal hemorrhoids were also seen. IMPRESSION: 1. Mild radiation proctitis, status post argon plasma coagulation cauterization. 2. [id number] internal hemorrhoids. 3. Small actively oozing external hemorrhoids. 4. All the above could potentially generate the patient's hematochezia and decreased H and H over time. RECOMMENDATIONS: 1. We would recommend a higher fiber diet in light of external hemorrhoids and avoid spending prolonged amounts of time on the toilet. 2. We will continue to monitor the patient's H and H and transfuse as necessary to maintain an H and H of 7/21. 3. Continue to monitor clinically for signs of active GI bleeding. 4. Upper endoscopy is not indicated at this time given a likely source of bleeding seen today. In between, the patient's recent chemotherapy could potentially generate anemia. 5. Would restart anticoagulation in 48-72 hours given cauterization performed today. From a GI standpoint, the patient could be potentially discharged to home with followup as an outpatient either in Oncology or GI Clinic. We will continue to follow peripherally. Please call with any questions. Job ID: [id number] [facility] SYSTEMDeyvi
[2019-06-15] MEDS ORDERED: Ondansetron PF 4 MG/2 ML Vial ONE (10:11)
[2019-06-15] MEDS ORDERED: PROPOFOL 200 MG/20 ML VIAL ONE (10:11)
[2019-06-15] MEDS ORDERED: Pregabalin 25 MG CAP PO SCH ×2 (11:15→21:00)
--- NOTE | 2019-06-15 11:44 | PDOC.MOPN ---
Interval History: colonoscopy results noted. Hgb stable DC home when ok with consultants. Follow-up Monday 06/18 at 0900. - Vital Signs Vital Signs: Vital Signs (12 hours) Temp Pulse Resp BP Pulse Ox 06/15/19 11:38 98.7 F 86 20 147/66 H 96 06/15/19 07:05 98.9 F 97 16 154/74 H 98 06/15/19 03:10 99.3 F 87 16 138/66 97 Weight Admit Weight 142 lb 3.2 oz Weight 142 lb 3.2 oz - Labs Result Diagrams: 06/15/19 04:45 06/15/19 04:45 Lab results: Laboratory Results - last 24 hr 06/15/19 10:42: POC Glucose 82 06/15/19 06:23: POC Glucose 85 06/15/19 04:45: Sodium 133 L, Potassium 3.6, Chloride 97 L, Carbon Dioxide 27, Anion Gap 13, BUN 7 L, Creatinine 0.53 L, Estimated GFR (MDRD) Greater than 90 , Glucose 76, Calcium 8.2, Total Bilirubin 1.4 H, AST 28, ALT 40, Alkaline Phosphatase 580 H, Serum Total Protein 5.0 L, Albumin 2.5 L, Globulin 2.5, Albumin/Globulin Ratio 1.0 L 06/15/19 04:45: WBC 16.0 H, RBC 3.00 L, Hgb 8.7 L, Hct 25.7 L, MCV 85.8, MCH 29.0, MCHC 33.8, RDW 15.3 H, Plt Count 343, MPV 6.8 L, Neutrophils % (Manual) 71 , Band Neuts % (Manual) 14 H, Lymphocytes % (Manual) 4 L, Monocytes % (Manual) 7 , Eosinophils % (Manual) 3, Myelocytes % 1 H, Plt Morphology Comment Appears Adequate, RBC Morph Comment Normal 06/14/19 20:10: Hgb 9.3 L, Hct 28.7 L 06/14/19 19:24: POC Glucose 116 H 06/14/19 16:04: POC Glucose 186 H 06/13/19 09:50: Blood Type AB POSITIVE, Antibody Screen NEGATIVE, Crossmatch See Detail
[2019-06-15] MEDS: Acetaminophen 325 MG TAB PO SCH ×3 (11:48→19:33)
[2019-06-15] MEDS: HumuLIN 70/30 (300 UNITS/3 ML VIAL) SC SCH ×2 (11:49→21:11)
[2019-06-15] MEDS: Niacin 500 MG TAB PO SCH (11:50)
[2019-06-15] MEDS: Loratadine 10 MG TAB PO SCH (11:50)
--- NOTE | 2019-06-15 11:59 | PRG ---
DATE OF SERVICE: 06/15/2019 SUBJECTIVE: Please see the note from Dr. Jalil Russell, for which I agree. The patient was seen, evaluated, discussed, and examined with the residents by the bedside. This unfortunate gentleman with metastatic pancreatic cancer, who was admitted for an acute reaction to blood transfusion. Working him up, ended up getting scoped by GI, and it sounds like he has a little proctitis, but did not sound like major active bleeding. He had a PE on recent admission and has been on Lovenox since. Was held for the GI bleed and low hemoglobin, but now is restarted. Had a right femoral popliteal bypass or some kind of vascular procedure similar on the right side done in the last couple months and was having some pretty severe pain in that leg before. Has a right lewis wound, from where they did some of the surgery, but was not a wound there before. Has severe pain in the foot. It sounded like it was there all the time. Sometimes, it will get better if he walks on it. He is a diabetic, but really has no neuropathy type of signs or symptoms in the other foot. There is some edema in this leg as well. According to the , there was some question, if he was going to have an amputation on that side, but Cardiovascular Surgery thought everything was doing okay, but still in just a tremendous amount of pain and having some swelling in that foot as well. OBJECTIVE: Exam shows fair capillary refill probably at around 3 seconds. Pulses are little bit diminished. Wound is currently bandaged. Just some diffuse slight erythema and puffiness, 1+ pitting edema in the foot. Moving the great toe does seem to cause some pain. Otherwise, chest was clear. Abdomen is benign. ASSESSMENT AND PLAN: Plan is to get an x-ray on that foot to make sure he is not at risk for something and osteomyelitis or even for that matter, metastatic disease because this is possible. This may also be just ischemia, but then I wonder about something like or similar just to help with some of his symptoms. We will add Lyrica for pain control as well. Job ID: [id number]
--- NOTE | 2019-06-15 12:17 | RAD ---
THREE VIEWS RIGHT FOOT: HISTORY: Pain. COMPARISON: None. FINDINGS: There is evidence of internal fixation hardware involving the first digit at the level of the proxima l phalanx and distal metatarsal. There does appear to be perihardware lucency involving the component along the proximal phalanx. There is associated soft tissue swelling and possible subcutane ous gas suggesting cellulitis. There are moderate degenerative changes in the first metatarsal phalangeal joint space. Lateral projection demonstrates midfoot soft tissue swelling. IMPRESSION: Probable osteomyelitis and complication/loosening involving the internal fixation hardware at the lev el of proximal phalanx of the first digit. There is associated cellulitis in the right foot. Transcribed Date/Time: 06/15/2019 12:21 PM
[2019-06-15] MEDS: Vancomycin HCl 1.25 GM in Sodium Chloride 0.9% 250 ML 250 ML IVPB SCH (14:00)
[2019-06-15 15:57] LABS: #Basophils 0.1 thou/uL (0.0-0.2); #Eosinphils 0.1 thou/uL (0.0-0.7); #Lymphocytes 0.8 thou/uL (1.20-3.40); #Monocytes 1.2 thou/uL (0.11-0.59); #Neutrophils 15.7 thou/uL (1.40-6.50); %Basophils 0.4 % (0.0-1.0); %Eosinophils 0.3 % (0.0-10.0); %Lymphocytes 4.5 % (21.0-51.0); %Monocytes 6.9 % (0.0-10.0); %Neutrophils 87.8 % (42.0-75.0); Hemoglobin 8.9 g/dL (14.0-18.0); Mean Corpuscular HGB CONC 33.4 g/dL (32.0-36.0); Mean Corpuscular Hemoglobin 28.6 pg (27.0-31.0); Mean Corpuscular Volume 85.9 fL (78.0-98.0); Platelet Count 366 thou/uL (130-400); RBC Distribution Width 15.4 % (11.5-14.5); Red Blood Cell (RBC) Count 3.09 mill/uL (4.70-6.10); White Blood Cell (WBC) Count 17.9 thou/uL (4.8-10.8)
[2019-06-15 20:19] LABS: Hemoglobin 10.7 g/dL (14.0-18.0); Mean Corpuscular HGB CONC 33.6 g/dL (32.0-36.0); Mean Corpuscular Hemoglobin 29.2 pg (27.0-31.0); Mean Corpuscular Volume 86.9 fL (78.0-98.0); Mean Platelet Volume 7.1 fL (7.4-10.4); Platelet Count 407 thou/uL (130-400); RBC Distribution Width 15.3 % (11.5-14.5); Red Blood Cell (RBC) Count 3.67 mill/uL (4.70-6.10); White Blood Cell (WBC) Count 13.4 thou/uL (4.8-10.8)
[2019-06-15 20:29] LABS: Band 14 % (5-11); Lymphocytes 5 % (21-51); MDiff Complete? YES; Metamyelocyte 1 % (0-0); Monocytes 1 % (0-10); Neutrophil 79 % (42-75); Platelet Morphology Comment Appears Increased
[2019-06-15] MEDS: Simvastatin 5 MG TAB PO SCH (21:09)
[2019-06-16] MEDS: Acetaminophen 325 MG TAB PO SCH ×4 (01:47→20:09)
[2019-06-16] MEDS: Vancomycin HCl 1.25 GM in Sodium Chloride 0.9% 250 ML 250 ML IVPB SCH ×2 (01:47→14:15)
[2019-06-16 05:21] LABS: ALT (SGPT) 36 U/L (8-55); AST (SGOT) 28 U/L (5-34); Albumin 2.2 g/dL (3.5-5.0); Alkaline Phosphatase 697 U/L (40-110); Anion Gap 12 mmol/L (10-20); BUN (Urea Nitrogen) 7 mg/dL (8.4-25.7); Bilirubin, Total 1.3 mg/dL (0.2-1.2); Calc. Creatinine Clearance 133 mL/min (70-130); Calcium 8.4 mg/dL (7.8-10.44); Carbon Dioxide 28 mmol/L (22-29); Chloride 103 mmol/L (98-107); Estimated GFR-MDRD Greater than 90; Globulin 2.5 g/dL (2.4-3.5); Glucose 64 mg/dL (70-105); Potassium 3.4 mmol/L (3.5-5.1); Protein, Total 4.7 g/dL (6.0-8.3); Sodium 140 mmol/L (136-145)
[2019-06-16] MEDS ORDERED: Potassium Chloride 20 MEQ TAB PO SCH (05:45)
--- NOTE | 2019-06-16 05:48 | PDOC.FM ---
- Subjective Subjective: Pts right foot pain improved with lyrica. States he feels the swelling has gone down. Did fever overnight. Denies any other events. - Objective Vital Signs & Weight: Vital Signs (12 hours) Temp Pulse Resp BP Pulse Ox 06/16/19 03:14 96.5 F L 69 16 114/59 L 95 06/15/19 23:11 98.5 F 107 H 20 121/69 96 06/15/19 19:30 100.1 F H 130 H 24 H 193/84 H 100 Weight Admit Weight 64.501 kg Weight 64.501 kg I&O: 06/14/19 06/15/19 06/16/19 06:59 06:59 06:59 Intake Total 750 950 Balance 750 950 Result Diagrams: 06/16/19 04:41 06/16/19 04:41 Phys Exam - Physical Examination Constitutional: NAD HEENT: moist MMs, sclera anicteric Neck: full ROM Respiratory: no wheezing, no rales, no rhonchi, clear to auscultation bilateral Cardiovascular: RRR, no significant murmur Gastrointestinal: soft, non-tender Musculoskeletal: pulses present, edema present Neurological: non-focal, normal sensation, moves all 4 limbs Psychiatric: normal affect, A&O x 3 Skin: no rash, cap refill <2 seconds Dx/Plan (1) Melena Code(s): K92.1 - MELENA Status: Acute (2) Transfusion reaction Code(s): T80.92XA - UNSPECIFIED TRANSFUSION REACTION, INITIAL ENCOUNTER Status : Acute (3) Diabetes mellitus Code(s): E11.9 - TYPE 2 DIABETES MELLITUS WITHOUT COMPLICATIONS Status: Chronic (4) Bilateral pulmonary embolism Code(s): I26.99 - OTHER PULMONARY EMBOLISM WITHOUT ACUTE COR PULMONALE Status : Acute (5) Pancreatic adenocarcinoma Code(s): C25.9 - MALIGNANT NEOPLASM OF PANCREAS, UNSPECIFIED Status: Chronic (6) Osteomyelitis Code(s): M86.9 - OSTEOMYELITIS, UNSPECIFIED Status: Acute - Plan Plan: 59yo CM with h/o metastatic pancreatic cancer, DMII, and PVF with recent Fem- pop to RLE presents for non-hemolytic febrile blood transfusion reaction. #Probable osteomyelitis right great toe -Noted on xray yesterday -Orthopedics consulted, Dr. Webber was director telecommunications yesterday and was contacted, stated he does not work on feet and suggested calling Dr. Hawk who stated that since there is hardware we need to contact Dr. Junior who did pt's surgery 9 years ago. Call was placed through answering service yesterday but was not able to make contact. Will try again today. -Started on vancomycin and ceftriaxone -Pain controlled with addition of lyrica #Febrile Non-hemolytic transfusion reaction - Met Sirs criteria with fever 104, tachycardia during 3rd unit of pRBC, s/p 2u due to hgb of 5 - Sxs resolved with cessation of transfusion - Given benadryl and IVF in ED - Received 3rd unit PRBC yesterday after being premedicated - no rxn #Acute GI Bleed - Melena - Hb 6 on admission, improved to 8.7 s/p 2u pRBC, further dropped to 6.9, received 3rd unit yesterday - post transfusion Hgb 9.3, was 8.7 this a.m., will continue to monitor - GI consulted, colonoscopy yesterday - radiation proctitis and oozing internal and external hemorrhoids - Recommended holding lovenox for 2 days and starting aspirin per home routine #PVD with recent surgery - surgery last month to RLE by Dr. Menendez - Area of erythema, Edema, decreased pulse. - Pt states wound looks improved - Fever documented 06/13 likely due to transfusion reaction, patient has not been febrile overnight so less likely due to infection - Consider Abx if pt continues to spike fevers or has other s/s of acute infection - Wound care consulted - WBC 8.7 #Metastatic Pancreatic Cancer - Oncology consulted, patient known to Dr. Kerr, appreciate recs - Deferring further chemo tx until pt able to be dc'd - Known mets to liver #DMII - Continue home long-acting insulin - hyperglycemic protocol with SS - ACHS accuchecks PCP: Donell Code: Full IVF: LR @100cc/hr Diet: NPO Dispo: inpatient, GI and oncology consulting, colonoscopy scheduled for today, holding off on chemo tx
[2019-06-16 06:00] LABS: Band 12 % (5-11); Eosinophils 2 % (0-10); Hemoglobin 8.4 g/dL (14.0-18.0); Lymphocytes 5 % (21-51); MDiff Complete? YES; Mean Corpuscular Hemoglobin 28.5 pg (27.0-31.0); Mean Corpuscular Volume 86.5 fL (78.0-98.0); Monocytes 5 % (0-10); Myelocyte 1 % (0-0); Neutrophil 75 % (42-75); Platelet Count 304 thou/uL (130-400); Platelet Morphology Comment Appears Adequate; RBC Distribution Width 15.2 % (11.5-14.5); RBC Morphology Normal; Red Blood Cell (RBC) Count 2.96 mill/uL (4.70-6.10)
[2019-06-16] MEDS: Niacin 500 MG TAB PO SCH (08:33)
[2019-06-16] MEDS: Loratadine 10 MG TAB PO SCH (08:33)
[2019-06-16] MEDS: cefTRIAXone\\ROCEPHIN 2 GM in Sodium Chloride 0.9% 100 ML IVPB SCH (08:34)
[2019-06-16] MEDS: Pregabalin 50 MG CAP PO SCH ×3 (08:34→21:59)
[2019-06-16] MEDS: Aspirin Chewable 81 MG TAB PO SCH (08:34)
[2019-06-16] MEDS: Furosemide 20 MG TAB PO SCH ×2 (08:34→18:31)
[2019-06-16] MEDS: HumuLIN 70/30 (300 UNITS/3 ML VIAL) SC SCH ×2 (09:44→21:26)
[2019-06-16] MEDS ORDERED: Dextrose 50% Abboject 50 ML SYRINGE ONE (11:11)
[2019-06-16] MEDS: Lactated Ringer's 1,000 ML IV SCH ×3 (13:05→18:23)
--- NOTE | 2019-06-16 14:25 | PRG ---
DATE OF SERVICE: 06/16/2019 Please see the note from Dr. Russell, for which I agree. The patient was seen, evaluated, discussed, and examined with residents by bedside. The patient was almost going to be discharged yesterday, and that was when he was talking about the massive amount of foot and toe pain, especially at previous surgical site from 10 years ago. He got an x-ray and showed probable osteomyelitis, which makes sense as he has been having persistent pain in that location for a while, elevated white count, and did spike a fever again yesterday. So, the question was a transfusion reaction and fever a couple of days ago actually from this osteomyelitis. Nonetheless, now on vancomycin, we added Rocephin, and we will get Infectious Disease opinion on this. Had a colonoscopy yesterday, which showed some proctitis and some irritation but no major bleeding. His H and H now stable. Diabetes is fairly well controlled. Exam is significant for some swelling in the right lower extremity and some tenderness, although not a lot of erythema or heat around the right first TP joint area. We will see what ID says. He sounds like he may need a port for chemotherapy and certainly hopefully, we can be able to use that also for IV antibiotics management and sounds like he is going to need long-term IV antibiotics. Job ID: [id number]
--- NOTE | 2019-06-16 16:20 | EKG ---
Test Reason : STAT Blood Pressure : / mmHG Vent. Rate : 154 BPM Atrial Rate : 153 BPM P-R Int : 118 ms QRS Dur : 074 ms QT Int : 266 ms P-R-T Axes : 068 002 039 degrees QTc Int : 426 ms Undetermined rhythm Baseline artifact, may be sinus tachycardia Otherwise normal ECG No previous ECGs available Confirmed by DR. Tiana DURHAM ([id number]) on 06/16/2019 4:19:49 PM Referred By: Confirmed By:DR. Tiana DURHAM
[2019-06-16] MEDS ORDERED: Iopamidol 370 76% 100 ML VIAL ONE (16:58)
--- NOTE | 2019-06-16 18:27 | CON ---
DATE OF CONSULTATION: 06/16/2019 REASON FOR CONSULTATION: Evaluate findings relative to prior ORIF of right foot. HISTORY OF PRESENT ILLNESS: A 59-year-old gentleman, who has a history of metastatic pancreatic cancer, currently on Gemzar and Abraxane as well as peripheral vascular disease, which had intervention with a fem-fem bypass by Dr. Menendez in April. The patient also has a history of prior fixation of the right first toe by Dr. Junior a few years ago. The reason that we were asked to see this gentleman is because of the findings in the x-ray of the right foot. The patient has started having some symptoms with pain and paresthesias not just to the first toe, but all the toes in the right foot, most likely secondary to the consequences of the ischemia and reperfusion following the fem-fem bypass in April. Mr. Mathis in addition to the above has had bilateral pulmonary emboli and was admitted this time with severe anemia and possible lower GI bleed. The patient received 2 units, then developed tachycardia and fever, was admitted. Initial findings; temperature 98.4, pulse 91, respiratory rate 20, blood pressure 120/60, O2 saturation 98%. Initial laboratory data with a white cell count of 13.7. Actually, it was 9.9 before his admission. His white cell count went up to 20,000 over the past few days after going down to 13.4. Hemoglobin went up from 6.9 to 10.7 and now is down to 8.4. Platelet count went up briefly to 407 and now is down to 304. Creatinine has been stable around 0.54. Alkaline phosphatase was up to 738 and now is about the same at 697. The patient had an endoscopy by Dr. Pepe, and it demonstrated radiation proctitis with argon plasma coagulation cauterization of the bleeding vessels. Currently, he is awake. He denies any headaches, visual symptoms, sore throat, odynophagia, or dysphagia. No cough or sputum production. No chest pain. No back pain. He has pain in all the toes in the right foot, which is [id number] associated with paresthesias. PAST MEDICAL HISTORY: Includes peripheral vascular disease, recent fem-fem bypass; prostate cancer, managed with prostatectomy and radiation therapy following increase in PSA; type 2 diabetes; pancreatic cancer, metastatic to liver, on Abraxane and Gemzar; deep vein thrombosis; and bilateral pulmonary embolism. PAST SURGICAL HISTORY: Includes also cholecystectomy and right and left feet first toe fixation to manage the degenerative joint disease of the first MPJ and interphalangeal joint. He also has had facial surgery. FAMILY HISTORY: Leukemia and COPD. SOCIAL HISTORY: Former smoker, quit in 2019. . ALLERGIES: ROCURONIUM. CURRENT MEDICATIONS: 1. Tylenol. 2. Aspirin. 3. Tums. 4. Ceftriaxone. 5. Dextrose. 6. Lasix. 7. Humulin insulin. 8. Lactated Ringer's. 9. Claritin. 10. Morphine. 11. Niacin. 12. Zofran. 13. Lyrica. 14. Zocor. 15. Vancomycin. PHYSICAL EXAMINATION: VITAL SIGNS: T-max 103, he was afebrile for a while, and then it was 101 on admission. BP 130/57, pulse 91, respirations 16, and O2 saturation 97%. SKIN: Shows the surgical incisions for the fem-fem bypass with no inflammatory changes. He has a superficial area of ulceration with yellow eschar at the base, which appears to be superficial at the site of one of the incisions for the saphenous vein graft. LYMPHATICS: No lymphadenopathy. HEENT: Ocular movements are conjugate. Sclerae are white. Pupils are equal. Oral cavity is normal. NECK: Supple. No jugular vein distention. LUNGS: Symmetric. Clear breath sounds. HEART: S1 and S2. Regular rate. ABDOMEN: Soft. Not distended or tender. No ascites. No bladder distention. EXTREMITIES: He has edema in the lower extremities about 2+ to 3+ more or less. The areas of the previous first toe fixations, right and left side, with healed incisions and no erythema noted. LABORATORY DATA: Latest labs: White cell count 20,000, hemoglobin 8.4, platelets 304 with 12% bands. Creatinine is 0.54. Blood culture, no growth. Transfusion reaction, blood culture; no growth thus far 3 days. Urine culture, no growth at 36 hours. Foot x-ray with evidence of matthew-hardware lucency along the proximal phalanx, right side. Noted soft tissue swelling too, but this is more likely to represent just the repercussions from the edema in the lower extremity, not just the local area in the foot. ASSESSMENT: Metastatic pancreatic malignancy, on Abraxane and Gemzar; peripheral vascular disease with recent fem-fem bypass; right leg saphenectomy donor site with healing issues and superficial eschar; and symptoms in the right foot, which I related to the ischemia-reperfusion following the fem-fem bypass. Serendipitous findings are in the radiology of the right foot. DISCUSSION: The findings in the radiology study do not necessarily implicate infectious complication of the area. Matthew-lucencies can occur from noninfectious bone resorption. I do not see any other markers that would suggest inflammatory activity. Additional imaging studies such as MRI or Ceretec bone study can be ordered to confirm this impression. Dr. Junior is being consulted to see what his opinion is regarding this finding. At this time, continue antimicrobial therapy. If Dr. Junior is confident that this does not represent an infectious process, then we can discontinue antimicrobial therapy or at least continue it until the recently obtained blood cultures are negative since he may have been bacteremic from an alternate source vis-a-vis the other issues noted above. Job ID: [id number]
[2019-06-16] MEDS: Morphine 4 MG/ML VIAL SLOW IVP PRN (18:42)
[2019-06-16 19:50] LABS: Glucose Accucheck Confirmation 60 mg/dl (70-105)
--- NOTE | 2019-06-16 21:14 | CON ---
DATE OF CONSULTATION: HISTORY OF PRESENT ILLNESS: Tali Mathis junior is a 59-year-old male patient, diagnosed with metastatic pancreatic cancer. He had a CT-guided biopsy on 04/30/2019, demonstrated metastatic adenocarcinoma consistent with a pancreatic primary. He is admitted with osteomyelitis of his right foot. He has ORIF hardware, metatarsal, right foot, Dr. Junior had placed years past. He does not have any open wounds, but has cellulitis. Imaging revealed changes suggestive of osteomyelitis. Awaiting Dr. Junior's evaluation. Dr. Pepe has seen him this hospitalization, 06/15/2019, colonoscopy with control of hemorrhage performed. He had telangiectasias in the colon. He had laparoscopic cholecystectomy, February 2019. Dr. Menendez on 05/21/2019, performed a femoral popliteal thrombectomy and endarterectomy, bovine patch angioplasty, right common femoral artery, superior genicular popliteal artery bypass, reverse greater saphenous vein. I have been asked to see him regarding placement of a MediPort. ALLERGIES: NONE MEDICAL. PAST MEDICAL HISTORY: Prostate cancer, prostatectomy, radiation afterward due to elevated PSA, diabetes mellitus type 2, pancreatic cancer, history of DVT, on Lovenox, history of claudication, history of femoral-popliteal bypass, right reverse saphenous vein. PAST SURGICAL HISTORY: Prostatectomy, cholecystectomy, right foot ORIF instrumentation, hardware, metatarsal, Dr. Junior, femoral popliteal artery bypass. SOCIAL HISTORY: Tobacco cessation, December 2018. Alcohol use in the past. PHYSICAL EXAMINATION: VITAL SIGNS: Height 5 feet 7 inches, weight 142 pounds, 22 BMI, temperature 98.7, pulse 91, blood pressure 133/57. LUNGS: Clear to auscultation. CARDIAC: Regular rate and rhythm without murmur or gallop. ABDOMEN: Soft, protuberant. ASSESSMENT AND PLAN: Metastatic pancreatic carcinoma. PLAN: MediPort placement, left subclavian. He understands risks benefits and consents. Job ID: [id number]
--- NOTE | 2019-06-16 21:56 | RAD ---
PORTABLE CHEST 1 VIEW: Date: 06/16/19 Time: 2128 hours HISTORY: Tachypnea. FINDINGS/IMPRESSION: Comparison made with exam of 06/13/19. The heart size is normal. The lungs are well expanded with mild pulmonary vascular congestion/bilater al interstitial prominence, infiltrates. No lobar consolidation, pneumothoraces, or pleural effusions are seen. There are postop changes with metallic hardware in the lower cervical spine. POS: H
[2019-06-16] MEDS ORDERED: Furosemide 40 MG/4 ML VIAL SLOW IVP SCH (22:15)
[2019-06-16 22:50] LABS: Actual Bicarbonate (HCO3a) 21.5 mEq/L (22-28); Base Excess (BEa) -0.7 mEq/L (-2.0 to +3.0); O2 Tension (PaO2) 106.2 mmHg (> 80.0); pH, Arterial 7.52 (7.35-7.45)
[2019-06-16 22:51] LABS: Carboxyhemoglobin (COHb) 0.9 gm% (0.0-3.0); Hemoglobin (Hb) 9.2 g/dL (14.0-18.0)
[2019-06-16 22:52] LABS: Calcium, Ionized 1.12 mmol/L (1.12-1.30); Potassium - ABG Lab 2.93 mmol/L (3.70-5.30); Puncture Site RRADIAL
--- NOTE | 2019-06-16 23:40 | CT ---
CT PULMONARY ANGIOGRAM WITH AND WITHOUT CONTRAST AND 3D POST PROCESSING: History: Shortness of breath, dyspnea. Comparison: 04-22-19 FINDINGS: There is good compressive opacification of the pulmonary vasculature with filling defects consistent with pulmonary embolism in the lower lobe branches which were also seen on the previous study. No new emboli are seen. The thoracic aorta is well opacified without aneurysmal dissection. Minimal pericar dial effusion is seen. There are tiny bilateral pleural effusions with adjacent atelectases. No pulmo nary metastases are seen. There is fluid filled dilatation of the esophagus with distention of the stomach. Upper abdominal demetris ograms also demonstrate numerous hepatic metastases. There is air in the biliary tract. IMPRESSION: 1. Bilateral pulmonary embolism, stable since 04-22-19. 2. Hepatic metastatic disease. 3. Dilated fluid filled thoracic esophagus. 4. Tiny pleural effusions. Report was called over the telephone to Marybeth Allred R.N. at 11:16 p.m. POS: ANGELINA
[2019-06-17] MEDS: Simvastatin 5 MG TAB PO SCH ×2 (00:15→20:24)
--- NOTE | 2019-06-17 01:06 | PDOC.EVN ---
Event Note - Event Note Event Note: At approx. 1945 a [facility] was called overhead for patient. Upon arrival patient was shaking and complaining of chills. Denied any chest pain or SOB. Patient was found to have fever 101F, HR 140s-150s, BP 190/91, 98% O2 on 3L. Bedside glucose was 58. Patient was given 1 amp D50, with recheck sugar 5 minutes later being glucose 154. Patient was also administered 650 mg Tylenol. Upon physical exam some wheezing was heard in the anterior upper lobes as well as some crackles in the lung bases, also appeared to have slightly labored breathing. Respiratory therapy was paged and administered a nebulizer treatment at approx. 5. Bedside EKG showed sinus tachycardia of 145. The patient continued to be monitored for an additional 10-15 minutes and overall clinically appeared to be improving. He has stopped shaking and breathing did not appear to be labored. At approx. 2100, was paged by RN that patient again appeared to have labored breathing with slight retractions, RR 28 with O2 sat now initially 70s on 3L which improved to 95 when O2 increased to 4L. Patient was also shaking again. He was found to have a temp of 103.2F, HR 144, BP 191/91, glucose 136. Exam revealed no wheezing but continued crackles in the bilateral lung bases. A bedside bladder scan showed 451 mL. Patient stated he did not feel like he needed to void but was able to void into urinal when asked. Post-void residual scan showed 120 mL. At this point there was a concern for PE given patient's past hx of bilateral PE in lung bases in Mar 2019. Also patient's anticoagulation has been held since admission d/t GI bleed. Also consider causes of bacteremia vs fluid overload. Plan is to order CXR, ABG, and CTA. Will also check flu swab. Plan for transfer to telemetry. At approx. 2300 was paged by RN that ABG showed pH 7.519, O2 106.2, CO2 27. CTA showed no new PE, did reveal old bilateral PE that were stable when compared to imaging from 04/22/19. At this point there was concern for symptoms being partially due to fluid overload. Patient was given Lasix 40 mg x 1 with transfer to Telemetry floor occurring at approx 2350.
[2019-06-17 01:55] LABS: Vancomycin, Trough 10.4 ug/mL
[2019-06-17] MEDS: Acetaminophen 325 MG TAB PO SCH ×4 (02:38→20:24)
[2019-06-17] MEDS: Vancomycin HCl 1.25 GM in Sodium Chloride 0.9% 250 ML 250 ML IVPB SCH (02:38)
[2019-06-17] MEDS: Dextrose 5 % And 0.9 % NaCl 1,000 ML IV SCH ×2 (06:07→17:31)
[2019-06-17 06:56] LABS: Hemoglobin 8.1 g/dL (14.0-18.0); Mean Corpuscular HGB CONC 33.3 g/dL (32.0-36.0); Mean Corpuscular Hemoglobin 28.7 pg (27.0-31.0); Mean Corpuscular Volume 86.2 fL (78.0-98.0); Mean Platelet Volume 7.1 fL (7.4-10.4); Platelet Count 362 thou/uL (130-400); RBC Distribution Width 15.2 % (11.5-14.5); Red Blood Cell (RBC) Count 2.81 mill/uL (4.70-6.10); White Blood Cell (WBC) Count 24.3 thou/uL (4.8-10.8)
[2019-06-17 07:04] LABS: ALT (SGPT) 32 U/L (8-55); AST (SGOT) 23 U/L (5-34); Albumin 2.3 g/dL (3.5-5.0); Alkaline Phosphatase 732 U/L (40-110); Anion Gap 13 mmol/L (10-20); BUN (Urea Nitrogen) 7 mg/dL (8.4-25.7); Bilirubin, Total 1.1 mg/dL (0.2-1.2); Calc. Creatinine Clearance 117 mL/min (70-130); Calcium 7.9 mg/dL (7.8-10.44); Carbon Dioxide 25 mmol/L (22-29); Chloride 101 mmol/L (98-107); Estimated GFR-MDRD Greater than 90; Globulin 2.4 g/dL (2.4-3.5); Glucose 169 mg/dL (70-105); Protein, Total 4.7 g/dL (6.0-8.3); Sodium 136 mmol/L (136-145)
[2019-06-17 07:19] LABS: Potassium 2.9 mmol/L (3.5-5.1)
[2019-06-17] MEDS ORDERED: Potassium Chloride 40 MEQ in Sodium Chloride 0.9% 250 ML 250 ML IVPB SCH (08:45)
[2019-06-17 09:39] LABS: Band 23 % (5-11); Lymphocytes 2 % (21-51); MDiff Complete? YES; Monocytes 2 % (0-10); Neutrophil 71 % (42-75); RBC Morphology Normal; Reactive Lymphocytes 2 % (0-10)
[2019-06-17] MEDS ORDERED: Vancomycin HCl 1 GM in Premix Bag 1 BAG IVPB SCH (10:00)
[2019-06-17] MEDS: Niacin 500 MG TAB PO SCH (10:40)
[2019-06-17] MEDS: Pregabalin 50 MG CAP PO SCH ×3 (10:40→20:24)
[2019-06-17] MEDS: Furosemide 20 MG TAB PO SCH ×2 (10:40→14:23)
[2019-06-17] MEDS: Aspirin Chewable 81 MG TAB PO SCH (10:41)
[2019-06-17] MEDS: Loratadine 10 MG TAB PO SCH (10:41)
[2019-06-17] MEDS: HumuLIN 70/30 (300 UNITS/3 ML VIAL) SC SCH ×2 (10:41→21:14)
[2019-06-17] MEDS: cefTRIAXone\\ROCEPHIN 2 GM in Sodium Chloride 0.9% 100 ML IVPB SCH (10:46)
--- NOTE | 2019-06-17 11:00 | PDOC.FM ---
- Subjective Subjective: Patient had episode last night where he became tachycardic, febrile and SOB. CTA showed stable PE. Transferred to tele. Since then tele monitors show NSR. Patient non hypoxic on RA. Denies fevers chills. Did receive lasix last night. Only complaint this morning is some mild pain on plantar pad of right foot which is improved with lyrica. Sensation/motor intact. - Objective MAR Reviewed: Yes Vital Signs & Weight: Vital Signs (12 hours) Temp Pulse Resp BP BP Pulse Ox 06/17/19 10:20 98.3 F 82 16 127/61 95 06/17/19 04:00 97.9 F 96 18 117/61 100 06/17/19 00:00 98.9 F 132 H 21 H 127/60 97 06/16/19 23:56 96 Weight Admit Weight 64.501 kg Weight 67.812 kg I&O: 06/16/19 06/17/19 06/18/19 06:59 06:59 06:59 Intake Total 1630 2060 Output Total 3125 Balance 1630 -1065 Result Diagrams: 06/17/19 06:26 06/17/19 06:26 Phys Exam - Physical Examination Constitutional: NAD HEENT: PERRLA, moist MMs Neck: no nodes, full ROM Respiratory: no wheezing, clear to auscultation bilateral Cardiovascular: RRR, no significant murmur Gastrointestinal: soft, non-tender 2+ edema BLE cap refill present on R foot, sensation/motor intact Neurological: non-focal, moves all 4 limbs Psychiatric: normal affect, A&O x 3 Dx/Plan (1) Transfusion reaction Code(s): T80.92XA - UNSPECIFIED TRANSFUSION REACTION, INITIAL ENCOUNTER Status : Acute (2) Bilateral pulmonary embolism Code(s): I26.99 - OTHER PULMONARY EMBOLISM WITHOUT ACUTE COR PULMONALE Status : Acute (3) Elevated alkaline phosphatase level Code(s): R74.8 - ABNORMAL LEVELS OF OTHER SERUM ENZYMES Status: Acute (4) Hx of prostatectomy Code(s): Z90.79 - ACQUIRED ABSENCE OF OTHER GENITAL ORGAN(S) Status: Acute (5) Hx of prostatic malignancy Code(s): Z85.46 - PERSONAL HISTORY OF MALIGNANT NEOPLASM OF PROSTATE Status: Acute (6) Hyperglycemia Code(s): R73.9 - HYPERGLYCEMIA, UNSPECIFIED Status: Acute (7) Palliative care encounter Code(s): Z51.5 - ENCOUNTER FOR PALLIATIVE CARE Status: Acute (8) Uncontrolled diabetes mellitus Code(s): E11.65 - TYPE 2 DIABETES MELLITUS WITH HYPERGLYCEMIA Status: Acute (9) Pancreatic adenocarcinoma Code(s): C25.9 - MALIGNANT NEOPLASM OF PANCREAS, UNSPECIFIED Status: Chronic - Plan Plan: 59yo CM with h/o metastatic pancreatic cancer, DMII, and PVF with recent Fem- pop to RLE presents for non-hemolytic febrile blood transfusion reaction. #Probable osteomyelitis right great toe -Noted on xray yesterday -Started on vancomycin and ceftriaxone -Pain controlled with addition of lyrica -Ortho consulted/ Contacted Dr. Junior's office pending recs-MRI? -Pending blood cx #Hypokalemia:2.9, likely from diarrhea & lasix. Will check Mg. Replace potassium. #Hypoglycemic episode: Likely explains episode last night. Pt on home insulin regimen. Subsequent accuchecks have been stable. Continue accuchecks hold while NPO. Adjust as needed #Febrile Non-hemolytic transfusion reaction, resolved - Met Sirs criteria with fever 104, tachycardia during 3rd unit of pRBC, s/p 2u due to hgb of 5 - Sxs resolved with cessation of transfusion - Given benadryl and IVF in ED - Received 3rd unit PRBC yesterday after being premedicated - no rxn #Acute GI Bleed - Melena, likely from radiation proctitis - Hb 6 on admission s/p 3 PRBCs, Hb 8 today-stable -S/p colonoscopy this admission- radiation proctitis and oozing internal and external hemorrhoids: Recommended holding lovenox for 2 days with restart tomorrow and starting aspirin per home routine #PVD with recent surgery - surgery last month to [facility] by Dr. Menendez - Pt states wound looks improved - Wound care consulted #Metastatic Pancreatic Cancer - Oncology consulted, patient known to Dr. Kerr, appreciate recs - Deferring further chemo tx until pt able to be dc'd - Known mets to liver #IDDMII - Continue home long-acting insulin - hyperglycemic protocol with SS - ACHS accuchecks PCP: [place] Code: Full IVF: LR @100cc/hr Diet: NPO Dispo: inpatient, mediport placement today. Will contact Dr. Junior, pending recs. Addendum - Attending - Attending Attestation Date/Time: 06/17/19 [id number] I personally evaluated the patient and discussed the management with Dr. Hook I agree with the History, Examination, Assessment and Plan documented above with any addition or exceptions noted below. Some concern regard possible Osteomyelitis right foot will consult prior Orthopedic patient with hx bilateral great toe fusion and hardware several years ago . 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 Will continue trend H/H wound right medial LE at site vein harvest noted. Plan to restart Lovenox in AM. Discussed care plan with patient and family.
[2019-06-17] MEDS ORDERED: Magnesium 2 GM/50 ML 2 GM in Premix Bag 1 BAG IVPB SCH (11:15)
[2019-06-17] MEDS: Vancomycin HCl 1 GM in Premix Bag 1 BAG IVPB SCH ×2 (13:17→21:17)
--- NOTE | 2019-06-17 14:17 | PDOC.MOPN ---
Interval History: fever last night. question of osteomyelitis. - Vital Signs Vital Signs: Vital Signs (12 hours) Temp Pulse Resp BP BP Pulse Ox 06/17/19 13:20 98.0 F 73 18 119/65 95 06/17/19 10:20 98.3 F 82 16 127/61 95 06/17/19 04:00 97.9 F 96 18 117/61 100 Weight Admit Weight 142 lb 3.2 oz Weight 149 lb 8 oz - Physical Exam General: Alert, Oriented x3, No acute distress HEENT: Atraumatic, PERRLA, EOMI, Mucous membr. moist/pink Lungs: Clear to auscultation, Normal air movement Cardiovascular: Regular rate, Normal S1, Normal S2, No murmurs, Gallops, Rubs Abdomen: Normal bowel sounds, Soft, No tenderness, No hepatospenomegaly, No masses Extremities: No clubbing, No cyanosis, No edema Skin: No rashes, No significant lesion Neurological: Normal gait, Normal speech, Strength at 5/5 X4 ext, Normal tone, Sensation intact, Cranial nerves 3-12 NL, Reflexes 2+ Psych/Mental Status: Mental status NL, Mood NL - Labs Result Diagrams: 06/17/19 06:26 06/17/19 06:26 Lab results: Laboratory Results - last 24 hr 06/17/19 11:02: POC Glucose 179 H 06/17/19 06:26: Magnesium 1.3 L 06/17/19 06:26: Sodium 136, Potassium 2.9 L*, Chloride 101, Carbon Dioxide 25, Anion Gap 13, BUN 7 L, Creatinine 0.61 L, Estimated GFR (MDRD) Greater than 90 , Glucose 169 H, Calcium 7.9, Total Bilirubin 1.1, AST 23, ALT 32, Alkaline Phosphatase 732 H, Serum Total Protein 4.7 L, Albumin 2.3 L, Globulin 2.4, Albumin/Globulin Ratio 1.0 L 06/17/19 06:26: WBC 24.3 H, RBC 2.81 L, Hgb 8.1 L, Hct 24.2 L, MCV 86.2, MCH 28.7, MCHC 33.3, RDW 15.2 H, Plt Count 362, MPV 7.1 L, Neutrophils % (Manual) 71 , Band Neuts % (Manual) 23 H, Lymphocytes % (Manual) 2 L, Reactive Lymphs % 2, Monocytes % (Manual) 2, Neutrophils # Not Reportable, Lymphocytes # Not Reportable, RBC Morph Comment Normal 06/17/19 05:10: POC Glucose 176 H 06/17/19 01:29: Vancomycin Trough 10.4 06/16/19 21:41: POC Glucose 136 H 06/16/19 21:18: Specimen Type ARTERIAL, Puncture Site RRADIAL, Bicarbonate Actual 21.5 L, ABG pH 7.52 H, ABG pCO2 27.0 L, ABG pO2 106.2 H, ABG O2 Sat Calc/ Pablo 98.4 H, ABG O2 Content 12.8 L, ABG Base Excess -0.7, ABG Hematocrit 27.0 L , ABG Hemoglobin 9.2 L, ABG Oxyhemoglobin 97.2, ABG Carboxyhemoglobin 0.9, ABG Methemoglobin 0.30, Rhys Test POSITIVE, A-a O2 Gradient 116.730 H, Sodium 129 L , Potassium 2.93 L, Chloride 99, Ionized Calcium 1.12, Inspired O2 36 06/16/19 19:58: POC Glucose 154 H 06/16/19 19:27: POC Glucose 58 L* 06/16/19 19:02: Glucose Meter Confirm 60 L 06/16/19 19:02: ESR Westergren 43 06/16/19 19:02: C-Reactive Protein 15.12 H 06/13/19 19:28: Transfuse React Work-up SEE COMMENT Status: lab reviewed by me A/P - Problem (1) Osteomyelitis Current Visit: Yes Code(s): M86.9 - OSTEOMYELITIS, UNSPECIFIED Status: Acute (2) Pancreatic adenocarcinoma Current Visit: No Code(s): C25.9 - MALIGNANT NEOPLASM OF PANCREAS, UNSPECIFIED Status: Chronic - Plan Plan: await input regarding osteomyelitis and antibiotics. likely need termination clerk IV access as nursing having difficulty finding IV CBC stable, denies bleeding. Plan for full dose chemo this week as outpatient. patient discussed with Dr. Kerr.
[2019-06-17 15:42] LABS: Potassium 3.5 mmol/L (3.5-5.1)
--- NOTE | 2019-06-17 17:58 | PDOC.EVN ---
Event Note - Event Note Event Note: Discussed imaging results with Dr. Junior who doesn't believe it is infectious but endorses orthopoedic fixations have moved which can cause pain and radiographic findings. Recommended outpatient follow up. Notified Dr. Hines. In light of fever last night, will continue antibiotics pending ID recs
--- NOTE | 2019-06-17 19:12 | RAD ---
RADIOGRAPH CHEST ONE VIEW RADIOGRAPH ABDOMEN 2 VIEWS: DATE: 06/17/2019 HISTORY: 59-year-old male with fever FINDINGS: Prominent interstitial markings diffusely bilaterally. Normal cardiac mediastinal silhouette. No pneu mothorax or pneumoperitoneum. No consolidation. Gaseous gastric distention. Cholecystectomy clips. Air in the intrahepatic biliary tree. Metallic aaliyah nt in right paramedian abdomen just inferior to the pneumobilia. Nonobstructive bowel gas pattern. IMPRESSION: 1) no consolidation. 2) metallic stent in common bile duct. 3) pneumobilia due to the common bile duct stent. 4) gaseous gastric distention
--- NOTE | 2019-06-17 20:12 | PRG ---
DATE OF SERVICE: 06/17/2019 SUBJECTIVE: Mr. Del Bullard's MediPort was canceled because he had a fever to 102 degrees early this morning. He has been afebrile since/ he has been having fevers at home for some time. This may related to his tumor and not necessary infectious although he did have a pulmonary embolism in November, has a biliary stent. He had CTA performed on 06/16/2019 noting fluid in the lower esophagus. I did repeat abdominal x-rays today and they did reveal gaseous distension of the stomach and air-fluid level, and gaseous distension of the stomach seen on his CTA was also appreciated as well as fluid in the esophagus. The patient reports he is eating very well, tolerating his diet. He reports bowel function. He denies regurgitation . His chest x-ray and lung sweet are clear. ALLERGIES: ROCURONIUM. HABITS: Tobacco, none. Alcohol, none. PAST MEDICAL HISTORY: Prostate cancer, prostatectomy history, radiation years later, metastatic pancreatic cancer, in need of MediPort access for chemotherapy. OBJECTIVE: LUNGS: Clear to auscultation. CARDIAC: Regular rate and rhythm without murmur or gallop. ABDOMEN: Soft, nontender. EXTREMITIES: His right foot, there is some edema of his right leg. There is a wound from his saphenous vein harvest in his medial right ankle. He has a diminished Doppler dorsalis pedis pulse. He has had a right femoral-popliteal bypass. There are no overt signs of cellulitis or infection on his right foot, just edema. ABDOMEN: Soft, mild fullness, upper. ASSESSMENT AND PLAN: 1. Metastatic prostate cancer. Plan MediPort placement. I am unsure of the etiology of his fevers. He wants to be discharged home tomorrow to obtain chemotherapy. We will place a MediPort early in the morning, approximately 8 a.m. to facilitate this. 2. Air-fluid levels in the stomach, seen on CTA x-ray. I am concerned about gastric outlet obstruction from his tumor mass. After his MediPort, could consider upper GI to assess this. We will discuss with him in the morning preoperatively. Job ID: [id number]
[2019-06-18] MEDS: Acetaminophen 325 MG TAB PO SCH (02:10)
[2019-06-18] MEDS: Dextrose 5 % And 0.9 % NaCl 1,000 ML IV SCH ×2 (04:00→12:08)
[2019-06-18 04:27] LABS: Band 16 % (5-11); Eosinophils 1 % (0-10); Hemoglobin 7.8 g/dL (14.0-18.0); Lymphocytes 3 % (21-51); MDiff Complete? YES; Mean Corpuscular HGB CONC 33.1 g/dL (32.0-36.0); Mean Corpuscular Hemoglobin 28.9 pg (27.0-31.0); Mean Corpuscular Volume 87.3 fL (78.0-98.0); Mean Platelet Volume 7.3 fL (7.4-10.4); Monocytes 5 % (0-10); Neutrophil 75 % (42-75); Platelet Count 397 thou/uL (130-400); Platelet Morphology Comment Appears Adequate; RBC Distribution Width 15.3 % (11.5-14.5); White Blood Cell (WBC) Count 15.9 thou/uL (4.8-10.8)
[2019-06-18 04:31] LABS: ALT (SGPT) 32 U/L (8-55); AST (SGOT) 23 U/L (5-34); Albumin 2.2 g/dL (3.5-5.0); Alkaline Phosphatase 647 U/L (40-110); Anion Gap 13 mmol/L (10-20); BUN (Urea Nitrogen) 9 mg/dL (8.4-25.7); Bilirubin, Total 0.9 mg/dL (0.2-1.2); Calc. Creatinine Clearance 122 mL/min (70-130); Calcium 7.8 mg/dL (7.8-10.44); Carbon Dioxide 22 mmol/L (22-29); Chloride 105 mmol/L (98-107); Estimated GFR-MDRD Greater than 90; Globulin 2.4 g/dL (2.4-3.5); Glucose 123 mg/dL (70-105); Potassium 3.4 mmol/L (3.5-5.1); Protein, Total 4.6 g/dL (6.0-8.3); Sodium 137 mmol/L (136-145)
[2019-06-18] MEDS: Vancomycin HCl 1 GM in Premix Bag 1 BAG IVPB SCH (05:47)
--- NOTE | 2019-06-18 06:22 | PDOC.FM ---
- Objective Vital Signs & Weight: Vital Signs (12 hours) Temp Pulse Resp BP Pulse Ox 06/18/19 04:00 98.4 F 98 18 153/78 H 95 06/18/19 02:10 99.9 F H 06/17/19 20:00 98.5 F 88 18 129/67 99 Weight Admit Weight 64.501 kg Weight 67.812 kg I&O: 06/16/19 06/17/19 06/18/19 06:59 06:59 06:59 Intake Total 1630 2060 2460 Output Total 3125 1300 Balance 1630 -1065 1160 Result Diagrams: 06/18/19 03:45 06/18/19 03:45 Dx/Plan (1) Transfusion reaction Code(s): T80.92XA - UNSPECIFIED TRANSFUSION REACTION, INITIAL ENCOUNTER Status : Acute (2) Bilateral pulmonary embolism Code(s): I26.99 - OTHER PULMONARY EMBOLISM WITHOUT ACUTE COR PULMONALE Status : Acute (3) Elevated alkaline phosphatase level Code(s): R74.8 - ABNORMAL LEVELS OF OTHER SERUM ENZYMES Status: Acute (4) Hx of prostatectomy Code(s): Z90.79 - ACQUIRED ABSENCE OF OTHER GENITAL ORGAN(S) Status: Acute (5) Hx of prostatic malignancy Code(s): Z85.46 - PERSONAL HISTORY OF MALIGNANT NEOPLASM OF PROSTATE Status: Acute (6) Hyperglycemia Code(s): R73.9 - HYPERGLYCEMIA, UNSPECIFIED Status: Acute (7) Palliative care encounter Code(s): Z51.5 - ENCOUNTER FOR PALLIATIVE CARE Status: Acute (8) Uncontrolled diabetes mellitus Code(s): E11.65 - TYPE 2 DIABETES MELLITUS WITH HYPERGLYCEMIA Status: Acute (9) Pancreatic adenocarcinoma Code(s): C25.9 - MALIGNANT NEOPLASM OF PANCREAS, UNSPECIFIED Status: Chronic - Plan Plan: 59yo CM with h/o metastatic pancreatic cancer, DMII, and PVF with recent Fem- pop to RLE presents for non-hemolytic febrile blood transfusion reaction. #Fevers of unknown origin -Initial concern for osteo of right foot with orthopodic fixations, but after discussing w/ Dr. Junior, not likely. WBC downtrending, Tm99.9 overnight. BCx negative x2. Patient has been on empiric vanc/rocephin-appreciate further ID recs to d/c #Hypokalemia:3.4, replace PO after surgery #Type I DM 2/2 pancratic cancer - Due to hypoglycemic episode and NPO status, NPO w/ ACHS accuchecks -After surgery and eating, will resume home regimen #Anemia 2/2 radiation proctitis associated GI bleed - Hb dec from 8.1 -> 7.8, transfuse 2 PRBCs -S/p colonoscopy this admission- radiation proctitis and oozing internal and external hemorrhoids: Restarting lovenox today in light of no further GI bleeds and stable platelets #Hypoglycemic episode, resolved #Febrile Non-hemolytic transfusion reaction, resolved - Met Sirs criteria with fever 104, tachycardia during 3rd unit of pRBC, s/p 2u due to hgb of 5 - Sxs resolved with cessation of transfusion - Given benadryl and IVF in ED - Received 3rd unit PRBC yesterday after being premedicated - no rxn #PVD with recent surgery - surgery last month to [facility] by Dr. Menendez - Pt states wound looks improved - Wound care consulted #Metastatic Pancreatic Cancer - Oncology consulted, patient known to Dr. Kerr, appreciate recs - Deferring further chemo tx until pt able to be dc'd - Known mets to liver PCP: [facility] Code: Full IVF: LR @100cc/hr Diet: NPO Dispo: inpatient, mediport placement today. Will contact Dr. Junior, pending recs. Addendum - Attending - Attending Attestation Date/Time: 06/18/19 9680 I personally evaluated the patient and discussed the management with Dr. Hook I agree with the History, Examination, Assessment and Plan documented above with any addition or exceptions noted below. Patient for mediport anticipate discharge soon to resume chemo discuss with GI further indication EGD if patient H/H continue to decline. Will follow expectantly regard fever chills no obvious source infection osteomyelitis shruthi unlikely and assume fever related to malignancy at this point.
--- NOTE | 2019-06-18 06:24 | PDOC.FM ---
- Subjective Subjective: Pt feeling well no problems breathing, no chest pain. No cough. Some swelling in legs. - Objective MAR Reviewed: Yes Vital Signs & Weight: Vital Signs (12 hours) Temp Pulse Resp BP Pulse Ox 06/18/19 04:00 98.4 F 98 18 153/78 H 95 06/18/19 02:10 99.9 F H 06/17/19 20:00 98.5 F 88 18 129/67 99 Weight Admit Weight 64.501 kg Weight 67.812 kg I&O: 06/16/19 06/17/19 06/18/19 06:59 06:59 06:59 Intake Total 1630 2060 2460 Output Total 3125 1300 Balance 1630 -1065 1160 Result Diagrams: 06/18/19 03:45 06/18/19 03:45 Phys Exam - Physical Examination Constitutional: NAD HEENT: PERRLA, oral pharynx no lesions Neck: full ROM Respiratory: no wheezing, clear to auscultation bilateral Cardiovascular: RRR, no significant murmur Gastrointestinal: soft, non-tender 2+ edema in lower extremities b/l Neurological: non-focal, moves all 4 limbs Psychiatric: normal affect, A&O x 3 Skin: cap refill <2 seconds Dx/Plan (1) Transfusion reaction Code(s): T80.92XA - UNSPECIFIED TRANSFUSION REACTION, INITIAL ENCOUNTER Status : Acute (2) Bilateral pulmonary embolism Code(s): I26.99 - OTHER PULMONARY EMBOLISM WITHOUT ACUTE COR PULMONALE Status : Acute (3) Elevated alkaline phosphatase level Code(s): R74.8 - ABNORMAL LEVELS OF OTHER SERUM ENZYMES Status: Acute (4) Hx of prostatectomy Code(s): Z90.79 - ACQUIRED ABSENCE OF OTHER GENITAL ORGAN(S) Status: Acute (5) Hx of prostatic malignancy Code(s): Z85.46 - PERSONAL HISTORY OF MALIGNANT NEOPLASM OF PROSTATE Status: Acute (6) Hyperglycemia Code(s): R73.9 - HYPERGLYCEMIA, UNSPECIFIED Status: Acute (7) Palliative care encounter Code(s): Z51.5 - ENCOUNTER FOR PALLIATIVE CARE Status: Acute (8) Uncontrolled diabetes mellitus Code(s): E11.65 - TYPE 2 DIABETES MELLITUS WITH HYPERGLYCEMIA Status: Acute (9) Pancreatic adenocarcinoma Code(s): C25.9 - MALIGNANT NEOPLASM OF PANCREAS, UNSPECIFIED Status: Chronic - Plan Plan: 59yo CM with h/o metastatic pancreatic cancer, DMII, and PVF with recent Fem- pop to R[facility] presents for non-hemolytic febrile blood transfusion reaction. #Fever, likely from malignancy -Initial concern for osteo of right foot with orthopodic fixations, but after discussing w/ Dr. Junior, not likely. WBC downtrending, Tm99.9 overnight. BCx negative x2. No overt skin infections/wounds.Patient has been on empiric vanc/ rocephin-will d/c and gave strong return/monitoring precuations. 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 Pepe who will assess patient. Possible EGD. -S/p colonoscopy this admission- radiation proctitis and oozing internal and external hemorrhoids: Restarting lovenox today in light of no further GI bleeds and stable platelets #Hypoglycemic episode, resolved #Febrile Non-hemolytic transfusion reaction, resolved - Met Sirs criteria with fever 104, tachycardia during 3rd unit of pRBC, s/p 2u due to hgb of 5 - Sxs resolved with cessation of transfusion - Given benadryl and IVF in ED - Received 3rd unit PRBC yesterday after being premedicated - no rxn #PVD with recent surgery - surgery last month to E by Dr. Menendez - Pt states wound looks improved - Wound care consulted #Metastatic Pancreatic Cancer - Oncology consulted, patient known to Dr. Kerr, appreciate recs - Deferring further chemo tx until pt able to be dc'd - Known mets to liver PCP: Donell Code: Full IVF: can d/c after surgery Diet: NPO until after surgery Dispo: inpatient, mediport placement this morning. monitor to see if develops fever. appreciate ID recs on abx. Addendum - Attending - Attending Attestation Date/Time: 06/18/19 [id number] I personally evaluated the patient and discussed the management with Dr. Hook I agree with the History, Examination, Assessment and Plan documented above with any addition or exceptions noted below.
[2019-06-18] MEDS ORDERED: cefTRIAXone\\ROCEPHIN 2 GM VIAL ONE (07:22)
[2019-06-18] MEDS ORDERED: Sodium Chloride 0.9% 100 ML ONE (07:22)
[2019-06-18] MEDS ORDERED: Fentanyl 100 MCG/2 ML VIAL ONE (07:25)
[2019-06-18] MEDS ORDERED: Lidocaine 1% w/Epinephrine 1:100K 20 ML VIAL ONE (07:32)
[2019-06-18] MEDS ORDERED: Acetaminophen 500 MG TAB PO PRN (07:36)
[2019-06-18] MEDS ORDERED: traMADol HCl 50 MG TAB PO PRN ×2 (07:36)
[2019-06-18] MEDS ORDERED: Bupivacaine PF 0.5% 30 ML VIAL ONE (08:01)
[2019-06-18] MEDS ORDERED: Potassium Chloride 20 MEQ TAB PO SCH (08:30)
--- NOTE | 2019-06-18 08:50 | OP ---
DATE OF PROCEDURE: 06/18/2019 PREOPERATIVE DIAGNOSIS: Pancreatic cancer, in need of antineoplastic access. POSTOPERATIVE DIAGNOSIS: Pancreatic cancer, in need of antineoplastic access. Note, the patient on this admission several days had a CTA to assess his old pulmonary embolism, noting it to be stable, but noting stomach distended and esophagus full of fluid. The patient denies regurgitation at night and denies vomiting, although reports fullness. Repeat abdominal x-ray, upright and supine yesterday noting markedly distended stomach with air-fluid levels. I am concerned about gastric outlet obstruction due to his pancreatic malignancy. PROCEDURES PERFORMED: Left subclavian vein low-profile MediPort, fluoroscopy use, intraoperative placement of NG tube to decompress the stomach. ANESTHESIA: General (RSI due to suspected full stomach), local 0.5% Marcaine with epinephrine 30 mL mixed with 2% Xylocaine 10 mL. DESCRIPTION OF PROCEDURE: The patient was taken to the operating room where the right chest and neck were prepared with ChloraPrep and draped in routine fashion. Local anesthetic was infiltrated in the skin and subcutaneous tissue about the operative site. Infraclavicular approach used to place a trocar catheter cannulating the subclavian vein J-wire, removing the trocar catheter, enlarged skin site sharply creating a subcutaneous pocket. The dilator and Peel-Away sheath placed with J-wire in the subclavian vein, superior vena cava. Dilator and J-wire were removed, catheter placed with the Peel-Away sheath. Peel-Away sheath removed. Fluoroscopically, catheter tip was placed in optimal position in the superior vena cava, tailored to length, connected to the MediPort, secured with 2 interrupted sutures of 3-0 Prolene. Subcutaneous tissue was approximated with 3-0 Monocryl, skin with subdermal 4-0 Monocryl. MediPort accessed with Monte needle noting good return of venous blood and flushed with heparinized saline solution. Dermabond and sterile dressings applied. Fluoroscopic images revealed good line and port placement. Job ID: [id number]
[2019-06-18] MEDS ORDERED: Enoxaparin Sodium 40 MG/0.4 ML SYRINGE SC SCH (09:00)
--- NOTE | 2019-06-18 09:12 | RAD ---
XR Chest 1 View Portable History: MediPort placement Comparison: Radiograph 2 days prior Findings: Port catheter tip sits at the inferior SVC. Heart size is similar. Poor edema is improving. No pneumothorax. Impression: Uncomplicated placement left port catheter with tip at the inferior SVC.
[2019-06-18] MEDS ORDERED: Succinylcholine Chloride 20 MG/ML 10 ml SYRINGE FS ONE (10:41)
[2019-06-18] MEDS ORDERED: PROPOFOL 200 MG/20 ML VIAL ONE (10:41)
[2019-06-18] MEDS ORDERED: Ondansetron PF 4 MG/2 ML Vial ONE (10:41)
[2019-06-18] MEDS ORDERED: Dexamethasone 20 MG/5 ML VIAL ONE (10:41)
[2019-06-18] MEDS: cefTRIAXone\\ROCEPHIN 2 GM in Sodium Chloride 0.9% 100 ML IVPB SCH (11:04)
--- NOTE | 2019-06-18 11:12 | RAD ---
UPPER GI: HISTORY: Pancreatic cancer. Evaluate for delayed gastric emptying. EXPOSURE: 1 minute and 3 seconds FLUOROSCOPY TIME: 116.47 mGy FINDINGS: Initial supine non destructive testing specialist radiograph of the abdomen demonstrates multiple nonspecific air-filled loops of small bowel. Scattered fecal material in a nondistended, nondilated colon. There is a stent projecting in the right epigastric region. Cholecystectomy clips are identified. The thoracic esophagus has a normal course and caliber. No mucosal abnormality. No extrinsic or intri nsic process. No reflux during intermittent fluoroscopy. Gastric mucosa has a grossly normal mucosal appearance. No obvious filling defect. Contrast opacifies multiple normal caliber small bowel loops. The duodenum is also unremarkable. Post procedure radiograph demonstrates contrast opacifying multiple normal caliber small bowel loops. There is signi ficant passage of thick barium from the stomach into the small bowel. Post procedure image demonstrates reflux of contrast into the intrahepatic biliary system, likely due to a stent placed in the common bile duct. IMPRESSION: No significant obstruction at the gastric outlet. Post procedure radiograph demonstrates reflux of thick barium in the common bile duct. Results study discussed with Dr. Hawk on 06/18/2019 at 11:11 a.m. CODE CR Transcribed Date/Time: 06/18/2019 11:41 AM
[2019-06-18 11:21] VITALS: BP 156/77; TEMP 97.9
[2019-06-18] MEDS: Niacin 500 MG TAB PO SCH (12:06)
[2019-06-18] MEDS: HumuLIN 70/30 (300 UNITS/3 ML VIAL) SC SCH (12:07)
[2019-06-18] MEDS: Aspirin Chewable 81 MG TAB PO SCH ×2 (12:07→12:10)
[2019-06-18] MEDS: Pregabalin 50 MG CAP PO SCH (12:07)
[2019-06-18] MEDS: Loratadine 10 MG TAB PO SCH (12:07)
[2019-06-18] MEDS: Furosemide 20 MG TAB PO SCH (12:08)
--- NOTE | 2019-06-18 13:31 | PDOC.EVN ---
Event Note - Event Note Event Note: Discussed imaging w/ Dr. Ross- no signs of gastric outlet obstruction on imaging. Pt without sxs of n/v/abd fullness. Advised continue home lovenox for PE but stop ASA due to low Hb Discussed with Dr. Pepe-pt will have f/u appt for EGD, discussed monitoring for clinical signs of bleedings Discussed with Nicole plan is for chemotherapy today Discussed f/u with Dr. Marley outpt this Monday
[2019-06-18 13:47] LABS: Vancomycin, Trough 18.6 ug/mL
--- NOTE | 2019-06-19 10:52 | DIS ---
DATE OF ADMISSION: 06/14/2019 DATE OF DISCHARGE: 06/18/2019 DISCHARGE ATTENDING: Romero Terry MD RESIDENT: Ladonna Hook MD, PGY-2. PRIMARY DIAGNOSES: 1. Fever, likely from malignancy. 2. Possible nonhemolytic transfusion reaction, resolved. 3. Anemia secondary to radiation proctitis associated with gastrointestinal bleed. SECONDARY DIAGNOSES: 1. Type 1 diabetes. . 2. Hypoglycemic episode, resolved. 3. Peripheral vascular disease, recent femoral bypass surgery with Dr. Menendez. 4. Metastatic pancreatic cancer. CONSULTS: 1. Gastroenterology, Dr. Delvalle. 2. General Surgery, Dr. Hawk. 3. Infectious Disease, Dr. Hines. 4. Oncology, Dr. Kerr. 5. Orthopedist, Dr. Junior. PROCEDURES AND IMAGIN. Foot x-ray, probable osteomyelitis complication or loosening involving the internal fixation hardware at the level of proximal phalanx of the first digit. 2. CTA, bilateral pulmonary embolism, stable since 04/22/2019. 3. Acute abdomen series, common bile duct, gaseous gastric distension. Pneumobilia secondary to common bile duct stent. No consolidation. 4. Upper GI and small bowel x-ray, no significant obstruction of the gastric outlet. DISCHARGE MEDICATIONS: 1. Niacin 2 tablets p.o. daily. 2. Zocor 10 mg p.o. at bedtime. 3. Paulette 180 mg p.o. daily. 4. Humulin 70/30, 30 units subcu q.a.m., 24 units subcu q.p.m. 5. Omeprazole 40 mg p.o. b.i.d. 6. MiraLAX 1 packet p.o. daily p.r.n. constipation. 7. Percocet 1 tablet p.o. at bedtime p.r.n. for pain. 8. Lasix 20 mg p.o. b.i.d. 9. Lyrica 25 mg p.o. b.i.d. 10. Lovenox 60 mg subcu b.i.d. 11. Tylenol. Discontinued medications, aspirin 81 mg p.o. q.a.m. HISTORY OF PRESENT ILLNESS/HOSPITAL COURSE: Mr. Mathis is a pleasant 59-year-old male with history of metastatic pancreatic cancer, who is currently undergoing chemotherapy, who was sent over from [place] for suspected transfusion reaction. He was in [place]ology [place], receiving blood, started to become symptomatic with temperature instability. It was suspected febrile nonhemolytic transfusion reaction versus sepsis secondary to right lower extremity cellulitis since the patient had recent femoral-popliteal arterial bypass with Dr. Menendez of his right lower extremity. He was given Benadryl and steroids, and workup and labs were negative for hemolytic transfusion reaction. He was started on antibiotics for presumed right lower extremity cellulitis. The patient also reported having dark stools with a hemoglobin of 6 on admission. He also received two blood units. He underwent colonoscopy, which showed radiation proctitis, which was thought to be due to GI bleed. The patient remained stable until he had a code green called for fever, was transferred to telemetry unit. The patient had osteomyelitis where he had a right great toe internal fixation placed years ago. X-ray was obtained which showed possible osteomyelitis versus movement of hardware. Dr. Junior was consulted, who did not think it was cellulitis, nor did Dr. Hines. Blood cultures grew out negative. trended down. The patient remain afebrile. There was never a source of infection found for the patient, so the fever was thought to be due to the cancer. However, it is explicitly discussed that despite the workup, the fever induction , he follows up with PCP before the week is over. Strong return precautions were given. During the code green, CTA was obtained to rule out PE since the patient has been diagnosed with PE in March likely secondary to malignancy and had been on therapeutic Lovenox since then. CTA showed a stable PE; however, it showed some fluid in the thoracic esophagus. There is concern for gastric outlet obstruction from the pancreatic cancer, and so the patient underwent acute abdominal small-bowel series and x-ray which showed no gastric bowel obstruction. Again, workup for infectious was negative. In regard to acute GI bleed, the patient's hemoglobin was stable, but slowly trended down. It could be that there is an occult upper GI bleed, however, since the patient is receiving chemotherapy. He was discharged home with instructions to follow up. The patient was more comfortable with this. This was discussed with Dr. Pepe. During his stay, the patient also had a MediPort placed for easier chemotherapy access. The patient was sent home, discharged in order to receive chemotherapy treatment as discussed with Nicole Guajardo. DISPOSITION: Stable. DISCHARGE INSTRUCTIONS: 1. Location: Home. 2. Diet: healthy diet. 3. Activity: Ad mitchell as tolerated. FOLLOWUP: 1. Please follow up with Dr. Marley, by end of this week. 2. Please follow up with [facility] to continue chemotherapy. 3. Please follow up with Dr. Pepe in order to discuss possible further workup if hemoglobin keeps on dropping. 4. Please recheck BMP in order to make sure there is no further . Job ID: [id number]
--- NOTE | 2019-06-20 08:46 | PQF ---
Tali Mathis Jr ROMERO MORTON *r [id number] CLINICAL DOCUMENTATION CLARIFICATION FORM: POST DISCHARGE Addendum to original discharge summary date: ____ Late entry note date: __ DATE: 06/20/2019 ATTN: ROMERO MORTON Please exercise your independent, professional judgment in responding to the clarification form. Clinical indicators are provided on the bottom of this form for your review Please check appropriate box(s): [ x ] Pulmonary Embolism: [ ] Acute[ ] Subacute [ x ] Chronic Type: [ ] Septic [ ] Traumatic: [ ] Air Embolism [ ] Fat Embolism [ ]Other Location: [ ]Saddle[x ] Bilateral [ ] Unilateral [ ] Other [ ] Pulmonary Embolism [ ] with associated Acute Cor Pulmonale [ ] without associated Acute Cor Pulmonale [ ] Iatrogenic Pulmonary Embolism due to (specify etiology) [ ] Other diagnosis [ ] Unable to determine For continuity of documentation, please document condition throughout progress notes and discharge summary. Thank You. CLINICAL INDICATORS - SIGNS / SYMPTOMS / LABS - Bilateral pulmonary embolism, Status: Acute- Family medicine PN, 06/18, Romero Morton MD - Febrile non hemolytic transfusion resection vs sepsis 2/2 cellulitis-H&P, , Roberto Zaragoza MD - Mild pulmonary vascular congestion/bilateral interstitial prominence, Infiltrates- Chest X ray, 06/16 - Bilateral pulmonary embolism, stable since 04-22-19- Chest/Thorax CTA, 06/16 RISK FACTORS - PVD with recent surgery- Family medicine PN, 06/18, Romero Morton MD - Acute GI Bleed- H&P, 06/14, Roberto Zaragoza MD - Mediport placement- OP report, 06/18, Kenn Pacheco MD - Control of bleeding- Colonoscopy, 06/15, Steven Pepe MD - Hx of DVT, Consultation, 06/14, Steven Pepe MD TREATMENT: - Chest X ray, 06/16 -- Heparin.IV- MAR, 06/16 (This form is maintained as a part of the permanent medical record) 2014 [employer]. All Rights Reserved Pallavi Camacho [not provided] [not provided] MTDD
== END 2019-06-18 14:20 | disposition home or self-care (01) | DRG 982 ==
LOC: ONC 19:59 → ERS 19:59 → ONC 19:59 → EDSTATUS 22:09 → ERS 06-14 01:06 → 2SE 06-14 01:06 → ONC 06-16 11:39 → 2NO 06-16 23:27
PROVIDERS: ADMIT Family Medicine; ATTEND Family Medicine
PROC: 0W3P8ZZ Control Bleeding in Gastrointestinal Tract, Via Natural or Artificial Opening Endoscopic (ICD-10-PCS; principal; 2019-06-15)
PROC: 0JH60WZ Insertion of Totally Implantable Vascular Access Device into Chest Subcutaneous Tissue and Fascia, Open Approach (ICD-10-PCS; 2019-06-18)
PROC: 02HV33Z Insertion of Infusion Device into Superior Vena Cava, Percutaneous Approach (ICD-10-PCS; 2019-06-18)
DX: T80.92XA Unspecified transfusion reaction, initial encounter (principal); E87.2 Acidosis; C78.7 Secondary malignant neoplasm of liver and intrahepatic bile duct; L03.115 Cellulitis of right lower limb; C25.9 Malignant neoplasm of pancreas, unspecified; K92.2 Gastrointestinal hemorrhage, unspecified; I27.82 Chronic pulmonary embolism; D64.9 Anemia, unspecified; D69.59 Other secondary thrombocytopenia; I73.9 Peripheral vascular disease, unspecified; K21.9 Gastro-esophageal reflux disease without esophagitis; E87.6 Hypokalemia; Z51.5 Encounter for palliative care; K64.4 Residual hemorrhoidal skin tags; K64.8 Other hemorrhoids; K62.7 Radiation proctitis; E83.42 Hypomagnesemia; Y83.9 Surgical procedure, unspecified as the cause of abnormal reaction of the patient, or of later complication, without mention of misadventure at the time of the procedure; E11.649 Type 2 diabetes mellitus with hypoglycemia without coma; Z86.718 Personal history of other venous thrombosis and embolism; Z79.01 Long term (current) use of anticoagulants; Z90.79 Acquired absence of other genital organ(s); Z79.4 Long term (current) use of insulin
CPT/HCPCS: 36415; 36416; 36430; 71045; 71275; 74022; 74245; 80053; 80202; 81001; 82805; 83605; 83615; 83735; 85025; 85610; 85652; 86140; 86850; 86900; 86901; 87040; 87086; 87149; 87804; 93005; 93010; 94640; 96361; 96365; 96375; C1788; J0696; J1100; J1200; J1642; J1815; J1940; J2250; J2270; J2405; J2704; J3010; J3370; J3475; J3480; J3490; J7042; J7050; J7620; P9016; Q0163; Q9967; S0020; S0028

== ENCOUNTER 2019-07-02 13:34 | Day surgery (SDC) | payer OTHER ==
[2019-07-02] MEDS ORDERED: Acetaminophen 500 MG TAB PO PRN (14:21)
[2019-07-02] MEDS ORDERED: diphenhydrAMINE 25 MG CAP PO PRN (14:21)
[2019-07-02 15:55] VITALS: BMI 22.6
[2019-07-02 15:58] VITALS: BP 165/78; TEMP 103.1
== END 2019-07-02 15:15 | disposition short-term general hospital (02) ==
LOC: ONC/OP 13:34 → 2SW 14:16 → ONC/OP 15:15
PROVIDERS: ATTEND Nurse Practitioner Acute Care
PROC: 30233N1 Transfusion of Nonautologous Red Blood Cells into Peripheral Vein, Percutaneous Approach (ICD-10-PCS; principal; 2019-07-02)
DX: D64.9 Anemia, unspecified (principal); D69.6 Thrombocytopenia, unspecified

== ENCOUNTER 2019-07-02 15:11 | Emergency (ER) | payer OTHER ==
[2019-07-02 16:18] LABS: Bilirubin Negative (Negative); Blood, Urine Negative (Negative); Clarity Clear (Clear); Glucose, Urine (Dipstick) Normal (Negative); Leukocyte Negative Leu/uL (Negative); Nitrite Negative (Negative); Protein, Urine (Dipstick) Negative (Neg-Trace); Urobilinogen Normal mg/dL (Less than 2)
--- NOTE | 2019-07-02 16:53 | RAD ---
EXAM: CHEST ONE VIEW HISTORY: Fever COMPARISON: 06/18/2019 FINDINGS: Left subclavian Mediport catheter remains in place. Postsurgical changes cervical spine are again see n. The cardiac silhouette and pulmonary vasculature are within normal limits for the portable technique. The lungs are clear. The osseous structures are intact. IMPRESSION: No acute cardiopulmonary process.
[2019-07-02 17:00] LABS: Hemoglobin 5.5 g/dL (14.0-18.0); Mean Corpuscular HGB CONC 32.4 g/dL (32.0-36.0); Mean Corpuscular Hemoglobin 27.5 pg (27.0-31.0); Mean Platelet Volume 10.1 fL (7.4-10.4); Platelet Count 80 thou/uL (130-400); RBC Distribution Width 15.5 % (11.5-14.5); Red Blood Cell (RBC) Count 1.98 mill/uL (4.70-6.10); White Blood Cell (WBC) Count 16.1 thou/uL (4.8-10.8)
[2019-07-02 17:16] LABS: ALT (SGPT) 27 U/L (8-55); AST (SGOT) 20 U/L (5-34); Albumin 2.3 g/dL (3.5-5.0); Alkaline Phosphatase 642 U/L (40-110); Anion Gap 11 mmol/L (10-20); BUN (Urea Nitrogen) 14 mg/dL (8.4-25.7); Bilirubin, Total 1.1 mg/dL (0.2-1.2); Calc. Creatinine Clearance 0 mL/min (70-130); Calcium 8.4 mg/dL (7.8-10.44); Carbon Dioxide 26 mmol/L (22-29); Chloride 94 mmol/L (98-107); Estimated GFR-MDRD Greater than 90; Globulin 2.6 g/dL (2.4-3.5); Potassium 3.2 mmol/L (3.5-5.1); Protein, Total 4.9 g/dL (6.0-8.3); Sodium 128 mmol/L (136-145)
[2019-07-02 17:19] LABS: Anisocytosis SLIGHT = 6-15 cells (100X) (0-5/hpf); Band 29 % (5-11); Hypochromia SLIGHT = 6-15 cells (100X) (0-5/hpf); MDiff Complete? YES; Metamyelocyte 3 % (0-0); Monocytes 2 % (0-10); Myelocyte 1 % (0-0); Neutrophil 65 % (42-75); Ovalocytes SLIGHT = 2-5 cells (100X) (0-1/hpf); Platelet Morphology Comment Appears Decreased; Poikilocytosis SLIGHT = 6-15 cells (100X) (0-5/hpf); Polychromasia SLIGHT = 2-3 cells (100X) (0-2/hpf); Schistocytes SLIGHT = 2-5 cells (100X) (0-1/hpf); Tear Drops SLIGHT = 2-5 cells (100X) (0-1/hpf); Toxic Granulation SLIGHT
[2019-07-02 17:21] LABS: Glucose 52 mg/dL (70-105)
[2019-07-02] MEDS ORDERED: methylPREDNISolone Sod Succ/PF 125 MG/2 ML VIAL ONE (17:40)
[2019-07-02] MEDS ORDERED: Famotidine/PF 20 mg/2ml Vial ONE (17:40)
[2019-07-02] MEDS ORDERED: diphenhydrAMINE 50 MG/ML VIAL ONE (17:40)
== END 2019-07-03 00:36 | disposition home or self-care (01) ==
LOC: ERS 15:11
DX: D64.9 Anemia, unspecified (principal); K21.9 Gastro-esophageal reflux disease without esophagitis; Z87.891 Personal history of nicotine dependence; E11.9 Type 2 diabetes mellitus without complications; Z79.4 Long term (current) use of insulin
CPT/HCPCS: 36415; 36416; 36430; 71045; 80053; 81003; 83605; 85025; 86850; 86900; 86901; 87040; 87086; 87804; 96374; 96375; J1200; J2930; P9016; S0028

== ENCOUNTER 2019-07-11 14:03 | Outpatient (CLI) | payer OTHER, SELFPAY ==
[2019-07-11 16:16] LABS: Hemoglobin 7.9 g/dL (14.0-18.0); Mean Corpuscular HGB CONC 31.8 g/dL (32.0-36.0); Mean Corpuscular Hemoglobin 28.1 pg (27.0-31.0); Mean Corpuscular Volume 88.6 fL (78.0-98.0); Mean Platelet Volume 8.8 fL (7.4-10.4); Platelet Count 322 thou/uL (130-400); RBC Distribution Width 16.2 % (11.5-14.5); Red Blood Cell (RBC) Count 2.81 mill/uL (4.70-6.10); White Blood Cell (WBC) Count 23.5 thou/uL (4.8-10.8)
[2019-07-11 16:32] LABS: Anion Gap 12 mmol/L (10-20); BUN (Urea Nitrogen) 19 mg/dL (8.4-25.7); Calc. Creatinine Clearance 0 mL/min (70-130); Calcium 8.7 mg/dL (7.8-10.44); Carbon Dioxide 29 mmol/L (22-29); Chloride 98 mmol/L (98-107); Estimated GFR-MDRD Greater than 90; Glucose 194 mg/dL (70-105); Potassium 4.6 mmol/L (3.5-5.1); Sodium 134 mmol/L (136-145)
== END 2019-07-11 14:04 | disposition home or self-care (01) ==
LOC: LABBT 14:03
PROVIDERS: ATTEND Thoracic Surgery (Cardiothoracic Vascular Surgery)
DX: Z01.812 Encounter for preprocedural laboratory examination (principal); Z51.81 Encounter for therapeutic drug level monitoring; I73.9 Peripheral vascular disease, unspecified; Z79.01 Long term (current) use of anticoagulants
CPT/HCPCS: 80048; 85027

== ENCOUNTER 2019-07-12 09:15 | Day surgery (SDC) | payer OTHER ==
[2019-07-11 14:57] VITALS: BMI 21.9
[2019-07-12] MEDS ORDERED: Fentanyl 100 MCG/2 ML VIAL ONE ×3 (10:37→14:14)
[2019-07-12] MEDS ORDERED: PROPOFOL 200 MG/20 ML VIAL ONE (12:52)
[2019-07-12] MEDS ORDERED: Ondansetron HCl/PF 4 MG/2 ML Vial IVP PRN (13:04)
[2019-07-12] MEDS ORDERED: Promethazine HCl 25 MG/ML VIAL IM PRN (13:04)
[2019-07-12] MEDS ORDERED: Meperidine HCl/PF 25 MG/ML VIAL SLOW IVP PRN (13:04)
[2019-07-12] MEDS ORDERED: Promethazine HCl 25 MG/ML VIAL SLOW IVP PRN (13:04)
[2019-07-12] MEDS ORDERED: Metoprolol Tartrate 5 MG/5 ML VIAL ONE (13:18)
--- NOTE | 2019-07-12 14:00 | OP ---
DATE OF PROCEDURE: 07/12/2019 PROCEDURE PERFORMED: Sharp debridement of full-thickness right ankle wound measuring approximately 12 cm in length and 5 cm in width. ANESTHESIA: General LMA. INDICATIONS: The patient is a 59-year-old man with a hypercoagulable syndrome attributed to metastatic pancreatic cancer. He presented with an acutely ischemic right lower extremity, presumably from thrombosis of his iliofemoral system superimposed upon underlying aortoiliac disease, and he underwent a fairly heroic effort at limb salvage that to date has been suboptimal, but successful. The femoral-femoral crossover graft has remained patent, although distal revascularization was unsuccessful. The ankle wound has dehisced from vein harvest and he is now taken to the operating room for wound debridement. FINDINGS: Full thickness involvement, debridement carried out to viable tissue. DESCRIPTION OF PROCEDURE: After informed consent was obtained, the patient was taken to the operating room. He was actively febrile and having rigors that had developed in between seeing him in the holding area and bringing him to the OR. In discussions with the Oncology Service, these recurring fevers and rigors have been very common place of late and have been attributed to tumor necrosis. General anesthesia was induced. His left groin was prepped and draped in sterile fashion, and a 20 mL syringe with an 18-gauge needle was used to access his left femoral vein just medial to the palpable pulse in the groin. The blood cultures were collected and then the patient's right lower leg was prepped and draped in sterile fashion. A lap sponge was used to wipe the Betadine and fibrinous exudate from the wound. A scalpel was then used to sharply excise the adherent nonviable tissue, including extending the wound over the medial malleolus, where the skin did not appear to be viable. The wound was irrigated, and an Unna boot and Nahum wrap were applied. The patient was awakened in the operating room and taken to the recovery area in stable condition. Job ID: [id number]
[2019-07-12] MEDS ORDERED: Sodium Chloride 0.9% 10 ML ONE (15:14)
== END 2019-07-12 15:20 | disposition home or self-care (01) ==
LOC: SDC 09:15 → EDSTATUS 14:30 → SDC 15:20
PROVIDERS: ATTEND Thoracic Surgery (Cardiothoracic Vascular Surgery)
PROC: 0JBM0ZZ Excision of Left Upper Leg Subcutaneous Tissue and Fascia, Open Approach (ICD-10-PCS; principal; 2019-07-12)
DX: I73.9 Peripheral vascular disease, unspecified (principal); D68.59 Other primary thrombophilia; C78.89 Secondary malignant neoplasm of other digestive organs; C80.1 Malignant (primary) neoplasm, unspecified; Z88.8 Allergy status to other drugs, medicaments and biological substances; Z91.018 Allergy to other foods
CPT/HCPCS: 87040; 87077; 87149; 87186; J0131; J1642; J2704; J3010

== ENCOUNTER 2019-07-13 15:23 | Inpatient (IN) | payer OTHER, SELFPAY ==
--- NOTE | 2019-07-13 16:08 | PDOC.FPRHP ---
- History of Present Illness Chief Complaint: Positive blood cultures History of Present Illness: Mr. Mathis is a 59yoM currently being treated for pancreatic cancer. He has a longstanding history of cyclic, recurring fevers that he has been worked up for. He was in the hospital yesterday for a surgical debridement of a RLE wound and was noted to be febrile with rigors, at that time blood cultures were drawn. Today the patient was notified that the blood cultures were positive. Dr. Marley recommended that the patient be admitted for sepsis workup and closer monitoring. He has been feeling about his usual self, slightly short of breath. He notes rhinorrhea when he eats. Otherwise he is asymptomatic. His history began in March with weakness and fatigue around the time he had a cholecystectomy. It was then discovered that he had pancreatic cancer. In April he had an acute occlusion of his externial iliac artery and resulted in a right iliofemoral thrombectomy, left common femoral endarterectomy and a fem- fem bypass. On the same day, postoperatively he had another thrombus which resulted in a fem-pop bypass and multiple thrombectomies. In the past there has been questionable osteomyelitis of the right great toe. He has also had bilateral pulmonary emboli that have been stable from March to May. He has a mediport that was placed 06/18/19. - Allergies/Adverse Reactions Allergies Allergy/AdvReac Type Severity Reaction Status Date / Time rocuronium Allergy Severe Anaphylaxis Verified 07/11/19 14:58 artificial sweeteners Allergy Intermediate Diarrhea Uncoded 07/11/19 14:58 - Home Medications Medication Instructions Recorded Confirmed Type Acetaminophen [Tylenol Extra 1,000 mg PO ASDIR 07/13/19 07/13/19 History Strength] Fexofenadine HCl [Paulette Allergy] 1 tab PO DAILY 07/13/19 07/13/19 History Fish Oil/DHA/EPA [Fish Oil 1,200 1 cap PO DAILY 07/13/19 07/13/19 History mg Fish Oil] Furosemide [Lasix] 20 mg PO DAILY 07/13/19 07/13/19 History Multivitamin [Daily Multiple 1 tab PO DAILY 07/13/19 07/13/19 History Vitamin] Naproxen Sodium [Aleve] 2 tab PO BID 07/13/19 07/13/19 History Niacin 2 tab PO DAILY 07/13/19 07/13/19 History Omeprazole 20 mg PO HS 07/13/19 07/13/19 History Pregabalin [Lyrica] 2 tab PO HS 07/13/19 07/13/19 History Pregabalin [Lyrica] 50 mg PO QAM 07/13/19 07/13/19 History Simvastatin [Zocor] 10 mg PO HS 07/13/19 07/13/19 History Warfarin Sodium [Jantoven] 5 mg PO HS 07/13/19 07/13/19 History oxyCODONE /Acetaminophen [Percocet] 2 tab PO HS 07/13/19 07/13/19 History oxyCODONE HCl/Acetaminophen 2 tab PO HS 07/13/19 07/13/19 History [Oxycodon-Acetaminophen 2.5-325] - History PMHx: Prostate Cancer with Prostatectomy, radiation multiple years later due to elevated PSA in 2017, DM 2/2 cancer, Pancreatic cancer, Hx of DVT on lovenox. Hx of cladication PSHx: Recent debridement. Prostatectomy, Cholecystectomy, Orthopedic feet repairs bilateral, Spacers placed in cervical spine, Facial Surgery w/ titanium cheek pain, Femoral Bypass. FHx: Dad- leukemia, Mom- COPD, heart issues Social: quit smoking December 2018, 35 year history - 1ppd at most, no alcohol, no drug use - Review of Systems General: reports: fever/chills, weight/appetite/sleep changes, fatigue. denies : night sweats Eyes: denies: eye pain, vision changes ENT: reports: rhinorrhea. denies: nasal congestion Respiratory: reports: shortness of breath. denies: cough, congestion Cardiovascular: denies: chest pain, palpitation, edema, paroxysmal nocturnal dyspnea, orthopnea Gastrointestinal: denies: nausea, vomiting, diarrhea, constipation, abdominal pain Genitourinary: denies: incontinence, dysuria, polyuria Skin: denies: rashes, lesions, jaundice Musculoskeletal: reports: pain. denies: tenderness, stiffness Neurological: denies: numbness, syncope, seizure, weakness - Vital signs Selected Entries 06/18/19 07/13/19 11:20 15:25 Temperature 99.2 F Pulse Rate 100 Respiratory 20 Rate O2 Sat by Pulse 94 L Oximetry Oxygen Delivery Room Air Method - Physical Exam Constitutional: NAD, awake, alert and oriented, well developed HEENT: normocephalic and atraumatic, PERRLA, EOMI, conjunctiva clear, grossly normal vision, grossly normal hearing, MMM -HEENT: pale conjunctiva Neck: supple, FROM, trachea midline Chest: no-tender to palpation Heart: RRR, normal S1/S2, no murmurs/rubs/gallops, pulses present Lungs: no respiratory distress, good air movement, no wheezing -Lungs: Rales in the bases bilaterally Abdomen: soft, non-tender, bowel sounds present Musculoskeletal: normal structure, normal tone -Musculoskeletal: RLE wound is dressed s/p debridement Neurological: no focal deficit, CN II-XII intact Skin: no rash/lesions, good turgor -Heme/Lymphatic: purpura on stomach, possibly from lovenox. Psychiatric: normal mood and affect, good judgment and insight, intact recent and remote memory FMR H&P: Results - Labs Result Diagrams: 07/13/19 19:26 Lab results: Laboratory Tests 07/11/19 07/11/19 07/12/19 15:29 15:29 16:43 WBC 23.5 H RBC 2.81 L Hgb 7.9 L Hct 24.9 L Plt Count 322 PT 22.9 H INR 2.0 Sodium 134 L Potassium 4.6 Chloride 98 Carbon Dioxide 29 Anion Gap 12 BUN 19 Creatinine 0.72 Estimated GFR (MDRD) Greater than 90 Glucose 194 H Lactic Acid Calcium 8.7 Procalcitonin 07/13/19 07/13/19 17:54 17:54 WBC RBC Hgb Hct Plt Count PT INR Sodium Potassium Chloride Carbon Dioxide Anion Gap BUN Creatinine Estimated GFR (MDRD) Glucose Lactic Acid 0.9 Calcium Procalcitonin 11.60 FMR H&P: A/P - Problem List (1) Sepsis Current Visit: Yes Status: Acute Code(s): A41.9 - SEPSIS, UNSPECIFIED ORGANISM (2) Bacteremia Current Visit: Yes Status: Acute Code(s): R78.81 - BACTEREMIA (3) Hx of prostatic malignancy Current Visit: No Status: Acute Code(s): Z85.46 - PERSONAL HISTORY OF MALIGNANT NEOPLASM OF PROSTATE (4) Diabetes mellitus Current Visit: No Status: Chronic Code(s): E11.9 - TYPE 2 DIABETES MELLITUS WITHOUT COMPLICATIONS (5) Pancreatic adenocarcinoma Current Visit: No Status: Chronic Code(s): C25.9 - MALIGNANT NEOPLASM OF PANCREAS, UNSPECIFIED - Plan Sepsis 2/2 bacteremia -Was febrile in the OR when cultures were drawn, elevated WBC, and positive blood cultures. -Positive blood cultures drawn during procedure on 07/12/19. -Will empirically treat with IV Vancomycin and Zosyn until cultures result tomorrow -Redraw blood cultures, lactic acid, procalcitonin, ESR and CRP. -CXR and UA pending Anemia - Hb 7.9 07/11 - Has required several transfusions in the past, has also had transfusion reaction in the past. DM II -continue home insulin regimen 70/30, 30 units qAM and 22uqPM Pancreatic cancer - aware, undergoing chemotherapy H/o prostate cancer - aware H/o arterial blood clot - s/p fem-pop bypass. - chronic wound, last debridement 07/12 - will notify [facility] tomorrow H/o dvt - on warfarin Dispo: Guarded Code: Full VTE: Warfarin LOS: likely 24-48 hours. FMR H&P: Upper Level - Plan Date/Time: 07/13/19 1607 IYuly, have evaluated this patient and agree with findings/plan as outlined by internal controls consultant resident. Pertinent changes/additions are listed here. 59yo M with PMH of stage IV pancreatic cancer, iatrogenic T1DM, Chronic Anemia, PE, hx of arterial thrombosis with subsequent PVD of R leg presented today when blood cx drawn during RLE wound debridement with Dr. Menendez were drawn. Pt became febrile prior to the procedure, cultures were drawn and 07/31 cx is currently growing presumed Klebsiella and Enterobacter. Pt family reports recurrent fevers since 04/2019 that have become daily up to 105 degrees. Several blood cx have been drawn and have been negative up until this point. He feels well otherwise. ROS completely negative as documented in internal controls consultant note. VS T- 99.2, P-100, R-20, O2sat 94%, BP 145/66. PE notable for mild crackles at b/l bases, purpura of the abdomen, and RLE with bandage in place of recent debridement, as well as cool distal RLE with dark black skin color change at R great distal toe, moist skin overlying this area. L hand with mild edema. Otherwise normal exam. Plan 1) Sepsis 2/2 Bacteremia- WBC two days ago 23, Fever at the time of blood cx, and positive cx. Unk primary infection, will get CXR, UA, blood cx redraw, LA, procal, and ESR/CRP. Will also get morning cortisol. Had a concern for osteomyelitis in the past. Will treat empirically with Vanc and Zosyn. Plan for ID consult tomorrow. Hold off on IVF until CXR is read. Repeat CBC and CMP. Continue home meds for chronic medical conditions as outlined above in internal controls consultant note.
[2019-07-13] MEDS ORDERED: Acetaminophen 325 MG TAB PO PRN (17:36)
[2019-07-13] MEDS ORDERED: Prevnar 13-Val Conj/PF 0.5 ML SYRINGE IM ONE (17:45)
--- NOTE | 2019-07-13 19:27 | RAD ---
Chest AP view INDICATION: History of sepsis COMPARISON: July 02, 2019 FINDINGS: Lungs:There are patchy airspace opacity seen within the right midlung, right lower lobe and left lowe r lobe which are new. Cardiac silhouette:The cardiomediastinal silhouette appears within normal limits. Pulmonary vasculature:Normal Pleural spaces:No pleural effusion or pneumothorax is demonstrated. Upper abdomen:No abnormality seen. Osseous structures: No acute osseous abnormality. There is partial visualization of an ACDF involving the lower cervical spine. Additional findings:Left chest wall port is stable. IMPRESSION: Patchy airspace opacities involving the right midlung, right lower lobe and left lower lo be suspicious for pneumonia.
[2019-07-13 19:41] LABS: #Lymphocytes 0.8 thou/uL (1.20-3.40); #Monocytes 0.3 thou/uL (0.11-0.59); #Neutrophils 5.9 thou/uL (1.40-6.50); %Basophils 0.4 % (0.0-1.0); %Eosinophils 0.3 % (0.0-10.0); %Monocytes 4.6 % (0.0-10.0); %Neutrophils 83.7 % (42.0-75.0); Hemoglobin 7.3 g/dL (14.0-18.0); Mean Corpuscular HGB CONC 33.1 g/dL (32.0-36.0); Mean Corpuscular Hemoglobin 28.5 pg (27.0-31.0); Mean Corpuscular Volume 86.2 fL (78.0-98.0); Mean Platelet Volume 9.1 fL (7.4-10.4); Platelet Count 181 thou/uL (130-400); RBC Distribution Width 16.2 % (11.5-14.5); Red Blood Cell (RBC) Count 2.57 mill/uL (4.70-6.10); White Blood Cell (WBC) Count 7.1 thou/uL (4.8-10.8)
[2019-07-13 20:48] LABS: INR-International Normal Ratio 1.9; PTT 44.1 SEC (22.9-36.1); Prothrombin Time 21.4 SEC (12.0-14.7)
[2019-07-13] MEDS ORDERED: Non-Formulary Item 1 EACH (Omeprazole [Omeprazole] 20 MG) PO SCH (21:00)
[2019-07-13] MEDS ORDERED: OXYCODONE HCL PO SCH (21:00)
[2019-07-13] MEDS ORDERED: Naproxen 500 MG TAB PO SCH (21:00)
[2019-07-13] MEDS ORDERED: Non-Formulary Item 1 EACH (Naproxen Sodium [Aleve] 2 TAB) PO SCH (21:00)
[2019-07-13] MEDS ORDERED: Simvastatin 5 MG TAB PO SCH (21:00)
[2019-07-13] MEDS ORDERED: [UNRECOGNIZED DRUG - OTHER] PO SCH (21:00)
[2019-07-13] MEDS ORDERED: Pregabalin 50 MG CAP PO SCH (21:00)
[2019-07-13] MEDS ORDERED: Warfarin Sodium 5 MG TAB PO SCH (21:00)
[2019-07-13] MEDS ORDERED: ACETAMINOPHEN PO SCH (21:00)
[2019-07-13] MEDS: oxyCODONE/Acetaminophen 5 mg/325 mg Tablet PO SCH (21:01)
[2019-07-13] MEDS: HumuLIN 70/30 (300 UNITS/3 ML VIAL) SC SCH (21:38)
[2019-07-13] MEDS: Vancomycin HCl 1.25 GM in Sodium Chloride 0.9% 250 ML 250 ML IVPB SCH (21:43)
[2019-07-13] MEDS: Piperacillin/Tazobactam 3.375 GM in Sodium Chloride 0.9% 100 ML IVPB SCH (23:49)
[2019-07-14 00:22] LABS: Bacteria/HPF None Seen HPF (None Seen); Bilirubin Negative (Negative); Blood, Urine Negative (Negative); Clarity Clear (Clear); Glucose, Urine (Dipstick) Normal (Negative); Leukocyte Negative Leu/uL (Negative); Nitrite Negative (Negative); Protein, Urine (Dipstick) Negative (Neg-Trace); RBC/HPF 0-3 HPF (0-3); Squamous Epithelial None Seen HPF (0-3); Urobilinogen 3 mg/dL (Less than 2); WBC/HPF 0-3 HPF (0-3)
--- NOTE | 2019-07-14 06:20 | PDOC.FM ---
- Subjective Subjective: Pt is feeling well this AM. Denies pain. Had not been coughing prior to admission. Does not have pain in his R toe/foot which was debrided yesterday. - Objective MAR Reviewed: Yes Vital Signs & Weight: Vital Signs (12 hours) Temp Pulse Resp BP Pulse Ox 07/14/19 04:33 98.4 F 99 20 156/77 H 96 07/13/19 23:56 98.1 F 81 18 146/74 H 94 L 07/13/19 20:25 98.1 F 92 18 159/83 H 95 07/13/19 20:00 95 Weight Weight 69.541 kg I&O: 07/12/19 07/13/19 07/14/19 06:59 06:59 06:59 Intake Total 240 Balance 240 Result Diagrams: 07/14/19 06:08 07/14/19 06:08 Phys Exam - Physical Examination Constitutional: NAD Respiratory: clear to auscultation bilateral Cardiovascular: RRR Gastrointestinal: soft, non-tender Musculoskeletal: no edema Psychiatric: normal affect, A&O x 3 Dx/Plan (1) Bacteremia Code(s): R78.81 - BACTEREMIA Status: Acute (2) Sepsis Code(s): A41.9 - SEPSIS, UNSPECIFIED ORGANISM Status: Acute (3) Hx of prostatectomy Code(s): Z90.79 - ACQUIRED ABSENCE OF OTHER GENITAL ORGAN(S) Status: Acute (4) Pancreatic adenocarcinoma Code(s): C25.9 - MALIGNANT NEOPLASM OF PANCREAS, UNSPECIFIED Status: Chronic - Plan Plan: 59yo M admitted for recurrent problems: Sepsis 2/2 gram-negative emi bacteremia -Was febrile in the OR when cultures were drawn, elevated WBC, and positive blood cultures during procedure on 07/12/19. - Preliminarily growing enterobacter species and klebsiella pneumoniae. -Current empiric Tx w/ IV Vancomycin and Zosyn -Lactic acid wnl, CRP 18.69, Procalcitonin 11.6. -CXR: patchy airspace opacities in R midlung, RLL/LLL concerning for pneumonia. Pt denies cough. -ID consulted today. Appreciate recs. -Pt is self-pay and has no insurance. Will limit labs/imaging to only those absolutely necessary. Peripheral vascular disease, s/p wound debridement on R ankle - will monitor and make [facility] aware of pt's admission Anemia - Hb 7.9 07/11 - Has required several transfusions in the past, has also had transfusion reaction in the past. DM II -continue home insulin regimen 70/30, 30 units qAM and 22u qPM Pancreatic cancer - aware, undergoing chemotherapy H/o prostate cancer - aware H/o arterial blood clot - s/p fem-pop bypass. - chronic wound, last debridement 07/12 H/o dvt - on warfarin Dispo: Guarded Code: Full VTE: Warfarin LOS: likely 24-48 hours.
[2019-07-14] MEDS: Piperacillin/Tazobactam 3.375 GM in Sodium Chloride 0.9% 100 ML IVPB SCH ×4 (06:21→23:56)
[2019-07-14 06:30] LABS: #Eosinphils 0.1 thou/uL (0.0-0.7); #Lymphocytes 0.8 thou/uL (1.20-3.40); #Monocytes 0.4 thou/uL (0.11-0.59); #Neutrophils 7.7 thou/uL (1.40-6.50); %Basophils 0.1 % (0.0-1.0); %Eosinophils 0.7 % (0.0-10.0); %Lymphocytes 9.1 % (21.0-51.0); %Neutrophils 86.2 % (42.0-75.0); Hemoglobin 6.9 g/dL (14.0-18.0); Mean Corpuscular HGB CONC 34.1 g/dL (32.0-36.0); Mean Corpuscular Hemoglobin 29.8 pg (27.0-31.0); Mean Corpuscular Volume 87.5 fL (78.0-98.0); Mean Platelet Volume 8.9 fL (7.4-10.4); Platelet Count 189 thou/uL (130-400); RBC Distribution Width 16.2 % (11.5-14.5); Red Blood Cell (RBC) Count 2.32 mill/uL (4.70-6.10)
[2019-07-14 06:31] LABS: INR-International Normal Ratio 1.7; Prothrombin Time 20.3 SEC (12.0-14.7)
[2019-07-14 06:50] LABS: ALT (SGPT) 56 U/L (8-55); AST (SGOT) 22 U/L (5-34); Albumin 2.2 g/dL (3.5-5.0); Alkaline Phosphatase 652 U/L (40-110); Anion Gap 11 mmol/L (10-20); BUN (Urea Nitrogen) 13 mg/dL (8.4-25.7); Bilirubin, Total 1.5 mg/dL (0.2-1.2); Calc. Creatinine Clearance 158 mL/min (70-130); Calcium 8.3 mg/dL (7.8-10.44); Carbon Dioxide 28 mmol/L (22-29); Chloride 101 mmol/L (98-107); Estimated GFR-MDRD Greater than 90; Globulin 2.8 g/dL (2.4-3.5); Potassium 3.4 mmol/L (3.5-5.1); Sodium 137 mmol/L (136-145)
[2019-07-14 06:55] LABS: Glucose 33 mg/dL (70-105)
[2019-07-14] MEDS ORDERED: Potassium Chloride 20 MEQ TAB PO SCH (07:30)
[2019-07-14] MEDS: ALEVE 220 MG PO SCH ×2 (08:22→21:00)
[2019-07-14] MEDS: FISH OIL 1200 MG PO SCH (08:22)
[2019-07-14] MEDS: Furosemide 20 MG TAB PO SCH (08:24)
[2019-07-14] MEDS: NIACIN 500 MG PO SCH (08:26)
[2019-07-14] MEDS: MULTIVITAMIN PO SCH (08:27)
[2019-07-14] MEDS: FEXOFENADINE HCL 180 MG PO SCH (08:28)
[2019-07-14] MEDS: HumuLIN 70/30 (300 UNITS/3 ML VIAL) SC SCH ×2 (08:30→21:02)
[2019-07-14] MEDS: Pregabalin 50 MG CAP PO SCH ×2 (08:58→20:57)
[2019-07-14] MEDS: Vancomycin HCl 1.25 GM in Sodium Chloride 0.9% 250 ML 250 ML IVPB SCH ×2 (08:59→20:55)
[2019-07-14] MEDS ORDERED: Fish Oil 1,000 MG CAP PO SCH (09:00)
[2019-07-14] MEDS ORDERED: Niacin 500 MG TAB PO SCH (09:00)
[2019-07-14] MEDS ORDERED: Loratadine 10 MG TAB PO SCH (09:00)
[2019-07-14] MEDS ORDERED: Non-Formulary Item 1 EACH (Fexofenadine Hcl [Allegra Allergy] 1 TAB) PO SCH (09:00)
[2019-07-14] MEDS ORDERED: Pregabalin 50 MG CAP PO SCH (09:00)
[2019-07-14] MEDS ORDERED: Non-Formulary Item 1 EACH (Multivitamin [Daily Multiple Vitamin] 1 TAB) PO SCH (09:00)
[2019-07-14] MEDS ORDERED: Furosemide 20 MG TAB PO SCH (09:00)
[2019-07-14] MEDS ORDERED: Non-Formulary Item 1 EACH (Fish Oil/Dha/Epa [Fish Oil 1,200 Mg Fish Oil] 1 CAP) PO SCH (09:00)
[2019-07-14] MEDS ORDERED: Multivit, Therapeutic 1 TAB PO SCH (09:00)
[2019-07-14] MEDS ORDERED: Dextrose 5% in Water 1,000 ML IV PRN (09:17)
[2019-07-14] MEDS ORDERED: Dextrose 50% Abboject 50 ML SYRINGE SLOW IVP PRN (09:17)
[2019-07-14] MEDS ORDERED: Iopamidol-370 76% 500 ML 1 ML ONE (11:24)
[2019-07-14] MEDS ORDERED: Acetaminophen 500 MG TAB PO SCH (12:00)
[2019-07-14] MEDS: Acetaminophen 500 MG TAB PO SCH ×2 (12:31→17:53)
[2019-07-14 12:40] LABS: Iron Less than 8 ug/dL (65-175); Iron Binding Capacity, Total 131 mcg/dL (261-462)
[2019-07-14 13:05] LABS: Ferritin 875.24 ng/mL (22-322)
[2019-07-14] MEDS ORDERED: Warfarin Sodium 5 MG TAB PO SCH (17:00)
[2019-07-14] MEDS ORDERED: Warfarin Sodium 3 MG TAB PO SCH (17:00)
--- NOTE | 2019-07-14 18:05 | CT ---
CT OF THE ABDOMEN AND PELVIS WITH IV CONTRAST INDICATION: History of pancreatic cancer with metastatic disease to the liver; recent bacteremia COMPARISON: CTA of the abdomen and pelvis dated May 20, 2019 and a CTA of the chest dated 2018 FINDINGS: ABDOMEN: Lung bases: There are small bilateral pleural effusions. There are new pulmonary nodules involving cory th lower lobes. The largest in the right lower lobe is seen on image 3 of series 2 measuring 1.6 cm largest in left lower lobe measures 2.2 centers on image 8 of series 2. Findings are suspicious for n ew pulmonary metastatic disease. Liver: Numerous hepatic metastatic lesions are again demonstrated. When accounting for different phas es of contrast enhancement are likely stable. Index lesion right hepatic lobe measures 2.6 cm. This is stable. Gallbladder: Surgically absent Pancreas: The hypodense mass seen in the region of the pancreatic head and uncinate process appears s lightly less prominent now measuring 2.4 cm were previously measured 3.1 cm. Dilatation of the main pancreatic duct persists. Biliary stent is unchanged extending from the common bile duct into the sec ond portion of the duodenum. Adrenal glands: Normal. Spleen: Normal. Kidneys and ureters: Normal. No hydronephrosis. Vasculature: There are mild vascular calcifications seen involving the visualized vasculature. Lymph nodes:No lymphadenopathy. Free fluid in abdomen:There is mild free fluid in the abdomen PELVIS: Small and large bowel: The descending colon, sigmoid colon and rectum are largely decompressed. Appendix:Surgically absent Bladder: Normal. Rectal and perirectal soft tissues:Decompressed Reproductive structures: Prostate appears surgically absent Free fluid in pelvis: There is moderate free fluid in the pelvis Lymphadenopathy pelvis: No lymphadenopathy is evident. Osseous structures: No acute osseous abnormality. No destructive osteolytic or osteoblastic lesion i s identified. There is scattered degenerative and osteoarthritic changes. Soft tissues:There is interval postprocedural change consistent with a femorofemoral bypass graft. Th ere is a fluid collection surrounding the bypass graft and both common femoral arteries. Fluid extends along the proximal femoral arteries bilaterally greater on the right. There is diffuse anasar ca. IMPRESSION: 1. New pulmonary metastatic disease. Stable hepatic metastatic disease. Pancreatic mass appears sligh tly less prominent than on the CTA examination dated May 20, 2019. 2. Pleural effusions, ascites and anasarca suggest third spacing. 3. Interval postprocedural change of a femoral-femoral bypass graft. There is fluid collection surrou nding the common femoral arteries and the bypass graft traversing the anterior pelvis within the subcutaneous tissues. This may reflect a postoperative fluid collection; however, superimposed infect ion cannot be entirely excluded.
[2019-07-14] MEDS: oxyCODONE/Acetaminophen 5 mg/325 mg Tablet PO SCH (20:56)
[2019-07-14] MEDS: Simvastatin 10 MG TAB PO SCH (21:00)
[2019-07-14] MEDS ORDERED: JANTOVEN 5 MG PO SCH (21:00)
[2019-07-14] MEDS: OMEPRAZOLE 20 MG TAB PO SCH (21:01)
--- NOTE | 2019-07-14 21:07 | CON ---
DATE OF CONSULTATION: 07/14/2019 REASON FOR CONSULTATION: Bacteremia. HISTORY OF PRESENT ILLNESS: Mr. Mathis is a 59-year-old gentleman, whom I had seen in May. At that time, he had presented with a history of peripheral vascular disease and a recent fem-fem bypass; prostate cancer managed with prostatectomy, radiation therapy; and newly diagnosed pancreatic cancer metastatic to liver with bilateral pulmonary embolisms on Abraxane and Gemzar through a left subclavian port. The patient recently had concerns with prior fixation of the right first toe by Dr. Junior and there was some lucencies in the x-ray. Those were not felt to represent necessarily osteomyelitis and in the clinical examination, there was no evidence of any inflammatory process. Dr. Junior reviewed the x-ray, did not feel that the lucencies were indicative of osteomyelitis. Around that time , he had fevers intermittently and had recurrent isolated episodes of fever and one set of blood cultures yielded Bacteroides species. This was identified following discharge. The patient recently had a stent placed at [facility] in the biliary duct and then Dr. Menendez performed debridement procedure in the right ankle wound site measuring about 12 cm in length and 5 cm in width. Of note, the femoral-femoral graft has remained patent, but distal revascularization was unsuccessful and the ankle wound has dehisced from the vein harvest and the operative report was reviewed. At the same time of the procedure, the patient developed chills and fever and 2 samples of cultures were submitted from blood. Scalpel was used to sharply excise the adherent nonviable tissue including extending the wound over the medial malleolus, but the skin did not appear viable. A Unna boot was placed following the procedure, but has not been removed under the strict instructions of Dr. Menendez. The blood culture submitted by Dr. Menendez during the procedure was turned positive and the patient was advised to be admitted for management. Currently, he is awake and alert. Denies headaches, visual symptoms, sore throat, odynophagia, or dysphagia. No dental pain. No back pain. No dyspnea, cough, or sputum production. No chest pain. No abdominal pain. No genitourinary symptoms. No diarrhea or bleeding. He has cpkl-ib-xheqexbr pain in the right lower extremity at the surgical site. He has noticed discoloration of the hallux right side over the past few days. PAST MEDICAL HISTORY: Prostate cancer in remission; [place] radiation therapy and resection; pancreatic cancer with liver metastasis and placement of a biliary stent recently, on chemotherapy through a port in the left subclavian location; prior deep vein thrombosis and pulmonary embolism, on anticoagulation; recurrent episodes of fever of uncertain etiology; recent episode of Bacteroides species bacteremia one set; some lucencies in the right first toe fixation site; fem-fem bypass in attempt to salvage right lower extremity. FAMILY HISTORY: Leukemia. SOCIAL HISTORY: Former smoker. No alcoholic beverage use. ALLERGY HISTORY: Rocuronium. CURRENT MEDICATIONS: P.r.n. medications: 1. Insulin. 2. Paulette. 3. Furosemide. 4. Niacin. 5. Zocor. 6. Warfarin. 7. Omeprazole. 8. Zosyn. 9. Vancomycin. PHYSICAL EXAMINATION: VITAL SIGNS: T-max 99.2, blood pressure 150/70, pulse 90, respirations 18, O2 saturation 96%. SKIN: There is the area of necrosis in distal aspect of the right hallux. There is a dusky discoloration of the hallux itself as well as the distal aspect of the second toe in the tip of the third toe. I did not remove the dressing over the surgical site following specific instructions and Dr. Menendez will be reviewing the wound tomorrow reportedly. The left-sided port does not have any tenderness. It is accessed at this time. No other inflammatory changes noted there. The patient is voiding in the toilet. LYMPHATIC: There is no lymphadenopathy. HEENT: Ocular movements are conjugate. Sclerae white. Pupils are equal. Oral cavity normal. Numerous teeth in place with fairly decent periodontal tissues. NECK: Supple. No jugular venous distention or carotid bruits. LUNGS: Symmetric. Clear breath sounds. HEART: S1 and S2. Regular rate. No S3 or S4. No murmurs. ABDOMEN: Soft, not distended or tender. No ascites. No bladder distention. No joint inflammatory activity outside the area of involvement. I could not feel any pulses in the right foot. Cap refill is delayed. NEUROLOGIC: Nonfocal including cognitive function. LABORATORY STUDIES: WBC count 7.1 and 9.0, hemoglobin 7.3, MCV 86, platelets 181, 83% neutrophils. INR 1.7. Sodium 137, creatinine 0.49, glucose 33, alkaline phosphatase 652, bilirubin 1.5, AST 22, ALT 56, albumin 2.2, B12 of 1900. Urinalysis was fairly normal except for urobilinogen. Microbiology, we have Klebsiella pneumoniae from 07/12 as pansusceptible phenotype. On 07/13, there are 2 sets, one with gram-negative emi, yet to be identified and susceptibility tested. The other with gram-positive cocci, yet to be identified as well. IMAGING STUDIES: There is a chest x-ray from yesterday, which shows patchy airspace opacities in the right midlung, the right lower lobe, left lower lobe. Previous imaging includes an upper GI and small-bowel follow-through on June 18 with no significant obstruction. There is a CT chest of June 16 with bilateral pulmonary embolism, which is stable and hepatic metastatic disease. The dilated fluid-filled thoracic esophagus and there is an abdomen CT from April 23, 2019 with a pancreatic mass and ductal dilatation. Innumerable hepatic metastatic lesions. ASSESSMENT: 1. Prostate cancer in remission. 2. Pancreatic cancer metastatic to liver and biliary obstruction, status post recent stent placement at [facility]. 3. Recurrent episodes of fever. 4. One episode of Bacteroides species bacteremia, probably transient recently identified. 5. Peripheral vascular disease with recent salvage attempt at right lower extremity with fem-fem bypass. The distal revascularization is marginal. There had been some problems with wound healing and debridement carried out by Dr. Menendez. 6. Bacteremia due to Klebsiella and there is a second organism yet to be identified and I do not know what the meaning of that organism is yet if it is a contaminant or a true pathogen. DISCUSSION: The differential diagnosis includes cholangitis with colonization of biliary tract and bacteremia from there associated with the stent placement, possibility of liver abscess or colonization of hepatic masses. The next possibility would be port colonization with bacteremia by the Klebsiella and the final possibility (the less likely of them) is bacteremia from the right leg wound. We will await for the final identification of the organism to define antimicrobial therapy. We will repeat CT of the abdomen and pelvis with contrast and repeat blood cultures with 2 sets from the port. If the repeat blood cultures are negative, then we will leave the port alone. If they return positive, then would assume that the port is colonized and would require removal and exchange. If the repeat port cultures are negative, then it is more likely that biliary tract is the source of the bacteremia. In that case, he would be at risk for future episodes of bacteremia from that site. Assuming he does not have a liver abscess, then the duration of therapy would be relatively short, probably no more than 10 days. Job ID: [id number] [facility]
[2019-07-15] MEDS: Piperacillin/Tazobactam 3.375 GM in Sodium Chloride 0.9% 100 ML IVPB SCH ×2 (05:40→11:25)
[2019-07-15 06:10] LABS: Platelet Count 136 thou/uL (130-400)
--- NOTE | 2019-07-15 06:15 | PDOC.FM ---
- Subjective Subjective: He is having 8/10 pain in his left foot this morning. He takes Percocet at night , but does not like his sedating features. He has not been eating a lot. He checked his blood sugar and it was 206 last night. He is going to recheck it later this morning. He had a low glucose of 33 yesterday morning. - Objective MAR Reviewed: Yes Vital Signs & Weight: Vital Signs (12 hours) Temp Pulse Resp BP Pulse Ox 07/15/19 03:00 97.4 F L 71 20 150/72 H 95 07/14/19 23:47 98.0 F 91 19 146/64 H 95 07/14/19 20:55 95 07/14/19 19:53 99.8 F H 106 H 19 163/79 H 95 Weight Weight 69.541 kg I&O: 07/13/19 07/14/19 07/15/19 06:59 06:59 06:59 Intake Total 1410 1510 Balance 1410 1510 Result Diagrams: 07/15/19 05:50 07/14/19 06:08 Phys Exam - Physical Examination Constitutional: NAD HEENT: PERRLA, moist MMs, sclera anicteric Neck: no nodes, supple Cardiovascular: RRR, no significant murmur Gastrointestinal: soft, non-tender, positive bowel sounds Musculoskeletal: no edema, pulses present Neurological: moves all 4 limbs Psychiatric: normal affect Skin: no rash Dx/Plan (1) Sepsis Code(s): A41.9 - SEPSIS, UNSPECIFIED ORGANISM Status: Acute (2) Hx of prostatic malignancy Code(s): Z85.46 - PERSONAL HISTORY OF MALIGNANT NEOPLASM OF PROSTATE Status: Acute (3) Uncontrolled diabetes mellitus Code(s): E11.65 - TYPE 2 DIABETES MELLITUS WITH HYPERGLYCEMIA Status: Acute (4) Diabetes mellitus Code(s): E11.9 - TYPE 2 DIABETES MELLITUS WITHOUT COMPLICATIONS Status: Chronic (5) Pancreatic adenocarcinoma Code(s): C25.9 - MALIGNANT NEOPLASM OF PANCREAS, UNSPECIFIED Status: Chronic - Plan Plan: 59yo M with pancreatic cancer, history of prostate cancer, DM, PVD, hx of DVT, Hx of Anaphylaxis with transfusion who presents with Sepsis 2/2 Surgery wound dehiscence. 1. Sepsis 2/2 gram-negative emi bacteremia * Was febrile in the OR when cultures were drawn, elevated WBC, and positive blood cultures during procedure on 07/12/19. * Preliminarily growing enterobacter species and klebsiella pneumoniae. * Susceptibility shows klebsiella rojas-sensitivity and enterobacter resistance to cephalosporins and Zosyn * Repeat Blood cx shows strep. * Current empiric Tx w/ IV Vancomycin and Zosyn. * ID: Donny consulted 07/14. Appreciate recs. * Lactic acid wnl, CRP 18.69, Procalcitonin 11.6. * CXR: patchy airspace opacities in R midlung, RLL/LLL concerning for pneumonia. Pt denies cough. * CT: New Pulmonary mets. Pleural effusion, ascites, & anasarca. Fluid collection around common femoral arteries. * Will consult oncology this morning to let them know of new mets in lungs. * Pt is self-pay and has no insurance. Will limit labs/imaging to only those absolutely necessary. 2. Peripheral vascular disease, s/p wound debridement on R ankle * Will monitor and make [facility] aware of pt's admission 3. Anemia Hgb 7.9 (07/11), Yesterday 6.9 * Has required several transfusions in the past, has also had transfusion reaction in the past. * H&H this am: 7.0 * Iron studies yesterday showed low Iron but high ferritin. Consider iron transfusion today. 4. DM II * Continue home insulin regimen 70/30, 30 units qAM and 22u qPM * Performing Accuchecks with home monitor 5. Pancreatic cancer * Undergoing chemotherapy 6. H/o prostate cancer * Will monitor for other symptoms * Hx of prostate removal? 7. H/o arterial blood clot * s/p fem-pop bypass. * Chronic wound, last debridement 07/12 8. H/o dvt * Currently on warfarin 5 mg except Monday & Monday 6 mg Code: Full VTE: Warfarin Dispo: Medical inpt. Will await final recommendations for antibiotic coverage and consult oncology. Addendum - Attending - Attending Attestation Date/Time: 07/15/19 1801 I personally evaluated the patient and discussed the management with the team. I agree with the History, Examination, Assessment and Plan documented above with any addition or exceptions noted below. New pulmonary mets - will notify onc as he is scheduled for chemo tomorrow. The team has not yet discussed this with the patient yet. Bacteremia - continue antibiotics, source as per Dr. Hines, await finalization.
[2019-07-15] MEDS: Vancomycin HCl 1.25 GM in Sodium Chloride 0.9% 250 ML 250 ML IVPB SCH (08:19)
[2019-07-15] MEDS: HumuLIN 70/30 (300 UNITS/3 ML VIAL) SC SCH ×2 (08:21→20:58)
[2019-07-15] MEDS: FISH OIL 1200 MG PO SCH (08:25)
[2019-07-15] MEDS: MULTIVITAMIN PO SCH (08:25)
[2019-07-15] MEDS: Furosemide 20 MG TAB PO SCH (08:26)
[2019-07-15] MEDS: FEXOFENADINE HCL 180 MG PO SCH (08:27)
[2019-07-15] MEDS: ALEVE 220 MG PO SCH ×2 (08:28→20:56)
[2019-07-15] MEDS: NIACIN 500 MG PO SCH (08:29)
[2019-07-15] MEDS: Pregabalin 50 MG CAP PO SCH ×2 (10:00→18:31)
[2019-07-15 10:17] LABS: INR-International Normal Ratio 2.3; Prothrombin Time 25.5 SEC (12.0-14.7)
[2019-07-15] MEDS: Acetaminophen 500 MG TAB PO SCH (11:26)
[2019-07-15 14:34] VITALS: BMI 24.0
[2019-07-15] MEDS: MEROPENEM 1 GM/50 ML 1 GM in Premix Bag 1 BAG IVPB SCH ×2 (14:54→21:06)
[2019-07-15] MEDS ORDERED: Aluminum & Magnesium Hydroxide 60 ML, Lidocaine 2% Viscous Solution 30 ML, diphenhydrAM... SSW PRN (15:19)
[2019-07-15] MEDS ORDERED: Ketorolac Tromethamine 30 MG/ML VIAL IVP SCH (16:15)
[2019-07-15] MEDS: Ketorolac Tromethamine 30 MG/ML VIAL IVP SCH (17:23)
[2019-07-15] MEDS: Warfarin Sodium 5 MG TAB PO SCH (17:27)
--- NOTE | 2019-07-15 19:08 | PRG ---
DATE OF SERVICE: 07/15/2019 SUBJECTIVE: Mr. Mathis is sitting up, eating dinner. Having pain, which appears to be neuropathic in the right foot. He has had Neurontin helped for this pain before. No headaches. No dyspnea. No abdominal pain. No pain in the graft site in the right groin. OBJECTIVE: VITAL SIGNS: T-max 100.3 and is now 98, blood pressure 170/84, pulse 84, respirations 18, and O2 saturation 93% to 96%. GENERAL: Appears in no distress, chronically ill appearing, oriented. LUNGS: Clear. HEART: S1 and S2. Regular rate. ABDOMEN: Soft, not distended or tender. Right groin graft site without erythema. A little bit swollen, but no tenderness on palpation. LABORATORY DATA: White cell count is at 9.0, hemoglobin 6.9 and it is 7.0, platelets 189, and 86% neutrophils. Sodium 137, creatinine 0.49 with bilirubin up to 1.5, ALT 56, AST 22, and alkaline phosphatase is up to 652. Microbiology, we have 2 sets of blood cultures from July 13 with gram-negative emi, yet to be identified with susceptibility testing, streptococcus in another gram-negative emi, and the one from July 12 with Klebsiella pneumoniae and Enterobacter, both susceptible to quinolones. The CT showed decrease in the size of the pancreatic mass, but now he appears to have some mets in the lungs. There is an area of fluid consistency around the fem-fem graft, but in the absence of inflammatory changes or tenderness on palpation, this probably just postop changes or just serous fluid rather than infected findings. ASSESSMENT AND DISCUSSION: Prostate cancer in remission, pancreatic cancer metastatic to liver and now lung, it appears to be the case, biliary obstruction with stent placement at [facility], recurrent episodes of fever, now being demonstrated to be due to polymicrobial bacteremia. Of all the candidates, it looks like the biliary tract is more likely scenario here. It would be unlikely that he had colonization of the ports with 3 different pathogens. Also, the foot that is unlikely to have persistent bacteremia. The only other option would be the grafts, but that does not have evidence on the physical examination suggest inflammatory process. May have to revisit this assessment depending on clinical progress. From a practical standpoint, he could be discharged on oral quinolone plus Augmentin for another 2 weeks approximately. If it is a biliary tract the source of this, then he is likely to have recurrences once the antimicrobials are discontinued. Job ID: [id number]
[2019-07-15] MEDS: oxyCODONE/Acetaminophen 5 mg/325 mg Tablet PO SCH (20:55)
[2019-07-15] MEDS: OMEPRAZOLE 20 MG TAB PO SCH (20:57)
[2019-07-15] MEDS: Simvastatin 10 MG TAB PO SCH (21:01)
--- NOTE | 2019-07-15 23:43 | CON ---
DATE OF CONSULTATION: REASON FOR CONSULTATION: Metastatic pancreatic cancer. HISTORY OF PRESENT ILLNESS: Mr. Mathis is a pleasant 59-year-old gentleman, who was diagnosed with metastatic pancreatic cancer in April 2019. He has had multiple complications including bilateral pulmonary emboli; right femoral artery occlusion, requiring surgical intervention and wound debridement. He has had tumor fever possibly secondary to gemcitabine. He has had multiple admissions over the last several months. He has had approximately 5 sets of blood cultures in the past. His fever has increased over the last several weeks to as high as 105. He underwent wound debridement on Monday by Dr. Menendez and had blood cultures drawn on that day. The preliminary returned positive for gram-negative rods, so the patient was admitted on Monday for antibiotics. Dr. Hines was consulted for his opinion. He did undergo an abdominal and pelvis CT to rule out liver abscess. Unfortunately, there were new pulmonary nodules involving both lower lobes. The patient has a history of biliary stents with a total bilirubin as high as 13.4 in April. His bilirubin has trended down to a normal value on July 02 of 1.1. On this admission, it has elevated again at 1.5. He has also had hypoglycemia with this admission. He was seen at bedside with his . He currently denies any complaints other than frustration. He does have worsening right lower extremity swelling, possibly secondary to the bandage on his lower extremity. He has had a T-max temperature of 100.3 since admission. PAST MEDICAL HISTORY: 1. Metastatic pancreatic cancer. 2. Bilateral pulmonary emboli. 3. 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 4. Tumor fever. 5. Diabetes mellitus. 6. Hyperlipidemia. 7. History of prostate cancer in 2006. 8. GERD. 9. Hemorrhoids. PAST SURGICAL HISTORY: 1. Prostatectomy. 2. Cholecystectomy. ALLERGIES: NO KNOWN DRUG ALLERGIES. HOME MEDICATIONS: 1. Aleve. 2. Jantoven. 3. Lyrica. 4. MVI. 5. Niacin. 6. Hydrocodone. 7. Prilosec. 8. Simvastatin. 9. Tylenol. 10. Lasix. 11. Coumadin. FAMILY HISTORY: Noncontributory. SOCIAL HISTORY: , lives with his spouse. No alcohol, tobacco, or illicit drug use. REVIEW OF SYSTEMS: A 10-point review of systems is negative except for noted in HPI. PHYSICAL EXAMINATION: VITAL SIGNS: Temperature is 98.0, pulse is 84, respiratory rate 18, BP is 173/84. He is 93% on room air. GENERAL: This is a chronically ill-appearing male, in no acute distress. HEENT: Normocephalic, atraumatic. Pupils are equal and reactive to light. NECK: Supple. CV: Regular rate and rhythm. LUNGS: Clear. ABDOMEN: Slightly distended. Bowel sounds are positive. EXTREMITIES: No clubbing or cyanosis. He has 3+ bilateral lower extremity edema. SKIN: He has purpura of his right big toe. NEUROLOGIC: He is nonfocal. PSYCHIATRIC: He is alert, oriented and appropriate. PERTINENT LABS AND X-RAYS: Current WBCs 9.0, hemoglobin 7, hematocrit 21.5, platelet count is 136,000, 86% neutrophils, 9% lymphocytes. PT is 25.5, INR is 2.3. Sodium 137, potassium 3.4, chloride 101, CO2 is 28, BUN is 13, creatinine 0.49, calcium 8.3, ferritin is 875, bilirubin is 1.5, AST is 22, ALT is 56, alkaline phosphatase is 652. C-reactive protein is 18.69. Serum total protein is 5, albumin 2.2, globulin 2.8. B12 is 1928. Radiology per HPI. ASSESSMENT: 1. Gram-negative emi bacteremia. 2. Metastatic pancreatic cancer. 3. Right lower extremity femoral artery occlusion with possible nonvascularized toe. DISCUSSION: The patient is being seen by Infectious disease, is concerned for [employer] colonization versus infection from stent over his right lower extremity wound. He is on empiric antibiotics at this time. His CT scan showed new pulmonary lung nodules. Unfortunately, the patient has not been able to consistently get treatment as he has only had four over the last 2 months secondary to hospitalization. I will discuss the case with Dr. Kerr to determine next course of action. We will provide supportive care at this time. Thank you for the consult. Job ID: [id number]
[2019-07-16] MEDS: Ketorolac Tromethamine 30 MG/ML VIAL IVP SCH ×3 (00:12→11:14)
[2019-07-16] MEDS: MEROPENEM 1 GM/50 ML 1 GM in Premix Bag 1 BAG IVPB SCH (06:24)
--- NOTE | 2019-07-16 06:26 | PDOC.FM ---
- Subjective Subjective: When I arrived, his blood sugar was just checked and at 101. He had a low of 41 earlier and received Ensure and juice. He had a temp of 91, so we got a bear hugger and temp was re-checked at 94. We got labs. He is still having foot pain. The Tordal does not help. He has more success with the Lyrica. - Objective MAR Reviewed: Yes Vital Signs & Weight: Vital Signs (12 hours) Temp Pulse Resp BP Pulse Ox 07/16/19 04:00 62 20 175/76 H 99 07/15/19 21:06 98 07/15/19 19:52 98.2 F 87 20 172/80 H 98 Weight Admit Weight 69.541 kg Weight 69.541 kg I&O: 07/14/19 07/15/19 07/16/19 06:59 06:59 06:59 Intake Total 1410 1510 1230 Balance 1410 1510 1230 Result Diagrams: 07/16/19 07:50 07/16/19 07:50 Phys Exam - Physical Examination Constitutional: NAD HEENT: PERRLA, moist MMs Neck: no nodes, supple Respiratory: clear to auscultation bilateral Cardiovascular: RRR, no significant murmur Gastrointestinal: soft, non-tender, positive bowel sounds Musculoskeletal: no edema, pulses present Neurological: moves all 4 limbs Lymphatic: no nodes Psychiatric: normal affect, A&O x 3 Skin: no rash Deviation from normal: Emboli on R great toe stable from yesterday, R 3rd toe resolving emboli Dx/Plan (1) Sepsis Code(s): A41.9 - SEPSIS, UNSPECIFIED ORGANISM Status: Acute (2) Hx of prostatic malignancy Code(s): Z85.46 - PERSONAL HISTORY OF MALIGNANT NEOPLASM OF PROSTATE Status: Acute (3) Uncontrolled diabetes mellitus Code(s): E11.65 - TYPE 2 DIABETES MELLITUS WITH HYPERGLYCEMIA Status: Acute (4) Diabetes mellitus Code(s): E11.9 - TYPE 2 DIABETES MELLITUS WITHOUT COMPLICATIONS Status: Chronic (5) Pancreatic adenocarcinoma Code(s): C25.9 - MALIGNANT NEOPLASM OF PANCREAS, UNSPECIFIED Status: Chronic - Plan Plan: 59yo M with pancreatic cancer, history of prostate cancer, DM, PVD, hx of DVT, Hx of Anaphylaxis with transfusion who presents with Sepsis 2/2 Surgery wound dehiscence. 1. Sepsis 2/2 gram-negative emi bacteremia * Was febrile in the OR when cultures were drawn, elevated WBC, and positive blood cultures during procedure on 07/12/19. * Preliminarily growing enterobacter species and klebsiella pneumoniae. * Susceptibility shows klebsiella rojas-sensitivity and enterobacter resistance to cephalosporins and Zosyn * Repeat Blood cx shows strep & enterobacter * Current empiric Tx w/ IV Vancomycin and Zosyn. * ID: Donny consulted 07/14. Appreciate recs. Recommend Quinolone & Augmentin for 2 wks. Believes infections is related to biliary stent, so will likely will re-occur if it is with completion of Abx. * Lactic acid wnl, CRP 18.69, Procalcitonin 11.6> 4.46 > 2.09 * CXR: patchy airspace opacities in R midlung, RLL/LLL concerning for pneumonia. Pt denies cough. * CT: New Pulmonary mets. Pleural effusion, ascites, & anasarca. Fluid collection around common femoral arteries. * Consulted oncology this morning to let them know of new mets in lungs. * Pt is self-pay and has no insurance. Will limit labs/imaging to only those absolutely necessary. 2. Peripheral vascular disease, s/p wound debridement on R ankle * Will monitor and make [facility] aware of pt's admission & consulted yesterday due to clots in foot increasing. 3. Anemia Hgb 7.9 (07/11) * Has required several transfusions in the past, has also had transfusion reaction in the past. * H&H 07/16: 7.6 * Iron studies yesterday showed low Iron but high ferritin. 4. DM II * Continue home insulin regimen 70/30, 30 units qAM and 22u qPM * Performing Accuchecks with home monitor * Will decrease evening insulin by 5 units 5. Pancreatic cancer * Undergoing chemotherapy, but unable to get consistent treatment due to hospitalizations * Onc consulted & following along. Informed of new pulm mets 6. H/o prostate cancer * Will monitor for other symptoms * Hx of prostate removal 7. H/o arterial blood clot * s/p fem-pop bypass. * Chronic wound, last debridement 07/12 8. H/o dvt * Currently on warfarin 5 mg except Monday & Monday 6 mg * INR: 2.3 today Code: Full VTE: Warfarin Dispo: Medical inpt. Will d/c on Abx today pending how he does this morning. Addendum - Attending - Attending Attestation Date/Time: 07/16/19 0768 I personally evaluated the patient and discussed the management with Dr. Diaz and team. I agree with the History, Examination, Assessment and Plan documented above with any addition or exceptions noted below. Patient with significant leg pain this AM On exam blacked toes noted, most singificantly the right great toe. CV Sx has reportedly seen them (no note at time of this writing to my knowledge ) and has no intervention planned currently. Will increase his pain medication Anemia stable p xfusion Hypoglycemia - insulin decreased by >10% Bacteremia - switched to PO agents, Dr. Hines following Pancreatic CA with lung metastases - we did not discuss prognosis but did discuss a palliative care consultation and the need for discussing goals of care and coordination. At the time of my conversation with them they wanted to think about it. [facility] has seen patient, we await rec's from Dr. Kerr.
[2019-07-16 07:12] LABS: ALT (SGPT) 39 U/L (8-55); AST (SGOT) 26 U/L (5-34); Albumin 2.4 g/dL (3.5-5.0); Alkaline Phosphatase 827 U/L (40-110); Anion Gap 13 mmol/L (10-20); BUN (Urea Nitrogen) 14 mg/dL (8.4-25.7); Bilirubin, Total 0.9 mg/dL (0.2-1.2); Calc. Creatinine Clearance 129 mL/min (70-130); Carbon Dioxide 26 mmol/L (22-29); Chloride 100 mmol/L (98-107); Estimated GFR-MDRD Greater than 90; Globulin 3.4 g/dL (2.4-3.5); Glucose 101 mg/dL (70-105); Potassium 4.1 mmol/L (3.5-5.1); Protein, Total 5.8 g/dL (6.0-8.3); Sodium 135 mmol/L (136-145)
[2019-07-16 08:01] LABS: Hemoglobin 7.6 g/dL (14.0-18.0); Mean Corpuscular HGB CONC 32.6 g/dL (32.0-36.0); Mean Platelet Volume 10.1 fL (7.4-10.4); Platelet Count 148 thou/uL (130-400); RBC Distribution Width 16.4 % (11.5-14.5); Red Blood Cell (RBC) Count 2.72 mill/uL (4.70-6.10); White Blood Cell (WBC) Count 11.8 thou/uL (4.8-10.8)
[2019-07-16] MEDS: MULTIVITAMIN PO SCH (08:14)
[2019-07-16] MEDS: FEXOFENADINE HCL 180 MG PO SCH (08:14)
[2019-07-16] MEDS: ALEVE 220 MG PO SCH ×2 (08:14→20:15)
[2019-07-16] MEDS: NIACIN 500 MG PO SCH (08:14)
[2019-07-16] MEDS: Furosemide 20 MG TAB PO SCH (08:15)
[2019-07-16] MEDS: FISH OIL 1200 MG PO SCH (08:15)
[2019-07-16 08:23] LABS: ALT (SGPT) 39 U/L (8-55); AST (SGOT) 29 U/L (5-34); Albumin 2.2 g/dL (3.5-5.0); Alkaline Phosphatase 826 U/L (40-110); Anion Gap 14 mmol/L (10-20); BUN (Urea Nitrogen) 14 mg/dL (8.4-25.7); Bilirubin, Total 0.9 mg/dL (0.2-1.2); Calc. Creatinine Clearance 146 mL/min (70-130); Calcium 8.6 mg/dL (7.8-10.44); Carbon Dioxide 26 mmol/L (22-29); Chloride 102 mmol/L (98-107); Estimated GFR-MDRD Greater than 90; Glucose 142 mg/dL (70-105); Potassium 4.1 mmol/L (3.5-5.1); Protein, Total 5.2 g/dL (6.0-8.3); Sodium 138 mmol/L (136-145)
[2019-07-16 08:25] LABS: Band 9 % (5-11); Lymphocytes 13 % (21-51); MDiff Complete? YES; Metamyelocyte 1 % (0-0); Monocytes 5 % (0-10); Neutrophil 72 % (42-75); Ovalocytes SLIGHT = 2-5 cells (100X) (0-1/hpf); Platelet Morphology Comment Appears Adequate; Polychromasia SLIGHT = 2-3 cells (100X) (0-2/hpf)
[2019-07-16] MEDS: Pregabalin 50 MG CAP PO SCH ×2 (08:30→20:46)
[2019-07-16] MEDS: HumuLIN 70/30 (300 UNITS/3 ML VIAL) SC SCH ×2 (11:10→20:17)
[2019-07-16] MEDS: Acetaminophen 500 MG TAB PO SCH (11:14)
[2019-07-16 13:25] LABS: Folate,Hemolysate 333.8 ng/mL (Not Estab.); RBC Folate Test Component 1757 ng/mL (>498)
[2019-07-16] MEDS: Amoxicillin/Potassium Clav 875 MG TAB PO SCH ×2 (13:48→20:48)
--- NOTE | 2019-07-16 15:53 | PDOC.MOPN ---
Interval History: up in chair, no complaints. - Vital Signs Vital Signs: Vital Signs (12 hours) Temp Pulse Resp BP Pulse Ox 07/16/19 12:00 98.2 F 96 18 169/72 H 95 07/16/19 08:00 99 07/16/19 04:00 62 20 175/76 H 99 Weight Admit Weight 153 lb 5 oz Weight 153 lb 5 oz - Physical Exam General: Alert, Oriented x3, No acute distress HEENT: Atraumatic, PERRLA, EOMI, Mucous membr. moist/pink Lungs: Clear to auscultation Cardiovascular: Regular rate, Normal S1, Normal S2, No murmurs, Gallops, Rubs Abdomen: Other (mildly distended) Extremities: Other (RLE edema) Neurological: Normal speech Psych/Mental Status: Mental status NL - Labs Result Diagrams: 07/16/19 07:50 07/16/19 07:50 Lab results: Laboratory Results - last 24 hr 07/16/19 07:50: WBC 11.8 H, RBC 2.72 L, Hgb 7.6 L, Hct 23.4 L, MCV 86.0, MCH 28.0, MCHC 32.6, RDW 16.4 H, Plt Count 148, MPV 10.1, Neutrophils % (Manual) 72 , Band Neuts % (Manual) 9, Lymphocytes % (Manual) 13 L, Monocytes % (Manual) 5, Metamyelocytes % (Man) 1 H, Neutrophils # Not Reportable, Lymphocytes # Not Reportable, Plt Morphology Comment Appears Adequate, Polychromasia SLIGHT = 2-3 cells, Ovalocytes SLIGHT = 2-5 cells 07/16/19 07:50: Procalcitonin 2.11 07/16/19 07:50: Sodium 138, Potassium 4.1, Chloride 102, Carbon Dioxide 26, Anion Gap 14, BUN 14, Creatinine 0.53 L, Estimated GFR (MDRD) Greater than 90, Glucose 142 H, Calcium 8.6, Total Bilirubin 0.9, AST 29, ALT 39, Alkaline Phosphatase 826 H, Serum Total Protein 5.2 L, Albumin 2.2 L, Globulin 3.0, Albumin/Globulin Ratio 0.7 L 07/16/19 06:38: Sodium 135 L, Potassium 4.1, Chloride 100, Carbon Dioxide 26, Anion Gap 13, BUN 14, Creatinine 0.60 L, Estimated GFR (MDRD) Greater than 90, Glucose 101, Calcium 9.0, Total Bilirubin 0.9, AST 26, ALT 39, Alkaline Phosphatase 827 H, Serum Total Protein 5.8 L, Albumin 2.4 L, Globulin 3.4, Albumin/Globulin Ratio 0.7 L 07/16/19 06:38: Procalcitonin 2.09 07/14/19 11:56: Folate Hemolysate 333.8, RBC Folate 1757, Hematocrit 19.0 L Status: lab reviewed by me A/P - Problem (1) Bacteremia Current Visit: Yes Code(s): R78.81 - BACTEREMIA Status: Acute (2) Pancreatic adenocarcinoma Current Visit: No Code(s): C25.9 - MALIGNANT NEOPLASM OF PANCREAS, UNSPECIFIED Status: Chronic - Plan Plan: Fevers improved, continue abx per ID CBC stable, bilirubin back to normal Home today or tomorrow Plan chemo on or Monday Discussed palliative care/hospice. They wish to continue treatment.
[2019-07-16] MEDS ORDERED: HYDROcodone/Acetaminophen 7.5/325 mg Tablet PO PRN (17:09)
[2019-07-16] MEDS: Warfarin Sodium 5 MG TAB PO SCH (17:34)
[2019-07-16] MEDS: oxyCODONE/Acetaminophen 5 mg/325 mg Tablet PO PRN (17:34)
[2019-07-16] MEDS: OMEPRAZOLE 20 MG TAB PO SCH (17:37)
[2019-07-16] MEDS: oxyCODONE/Acetaminophen 5 mg/325 mg Tablet PO SCH (20:13)
[2019-07-16] MEDS: Cipro 250 MG TAB PO SCH (20:13)
[2019-07-16] MEDS: Simvastatin 10 MG TAB PO SCH (20:16)
[2019-07-17] MEDS: oxyCODONE/Acetaminophen 5 mg/325 mg Tablet PO PRN ×2 (01:11→05:34)
[2019-07-17] MEDS: Amoxicillin/Potassium Clav 875 MG TAB PO SCH ×2 (05:30→14:26)
[2019-07-17] MEDS: Cipro 250 MG TAB PO SCH (05:30)
--- NOTE | 2019-07-17 06:32 | PDOC.FM ---
- Subjective Subjective: Pt is still in pain today. Still 03/09. Started him on new pain meds yesterday evening. The foot pain is on the R foot and is around his toes. He has no other complaints. Spoke with and patient this morning and they are wanting to speak with palliative today. Should get dressing changes by Dr. Kohli and wound care today. - Objective MAR Reviewed: Yes Vital Signs & Weight: Vital Signs (12 hours) Temp Pulse Resp BP BP Pulse Ox 07/17/19 01:13 90 170/84 H 07/17/19 00:00 97.8 F 91 20 171/88 H 97 07/16/19 19:55 98.0 F 88 20 166/83 H 93 L Weight Admit Weight 69.541 kg Weight 69.541 kg I&O: 07/15/19 07/16/19 07/17/19 06:59 06:59 06:59 Intake Total 1510 1230 720 Balance 1510 1230 720 Result Diagrams: 07/16/19 07:50 07/16/19 07:50 Phys Exam - Physical Examination Constitutional: NAD HEENT: PERRLA, moist MMs Neck: supple, full ROM Respiratory: clear to auscultation bilateral Cardiovascular: RRR, no significant murmur Gastrointestinal: soft, non-tender, positive bowel sounds Musculoskeletal: pulses present Neurological: moves all 4 limbs Psychiatric: normal affect, A&O x 3 Skin: no rash Dx/Plan (1) Sepsis Code(s): A41.9 - SEPSIS, UNSPECIFIED ORGANISM Status: Acute (2) Hx of prostatic malignancy Code(s): Z85.46 - PERSONAL HISTORY OF MALIGNANT NEOPLASM OF PROSTATE Status: Acute (3) Uncontrolled diabetes mellitus Code(s): E11.65 - TYPE 2 DIABETES MELLITUS WITH HYPERGLYCEMIA Status: Acute (4) Diabetes mellitus Code(s): E11.9 - TYPE 2 DIABETES MELLITUS WITHOUT COMPLICATIONS Status: Chronic (5) Pancreatic adenocarcinoma Code(s): C25.9 - MALIGNANT NEOPLASM OF PANCREAS, UNSPECIFIED Status: Chronic - Plan Plan: 59yo M with pancreatic cancer, history of prostate cancer, DM, PVD, hx of DVT, Hx of Anaphylaxis with transfusion who presents with Sepsis 2/2 Surgery wound dehiscence. 1. Sepsis 2/2 gram-negative emi bacteremia, Improving * Was febrile in the OR when cultures were drawn, elevated WBC, and positive blood cultures during procedure on 07/12/19. * Preliminarily growing enterobacter species and klebsiella pneumoniae. * Susceptibility shows klebsiella rojas-sensitivity and enterobacter resistance to cephalosporins and Zosyn * Repeat Blood cx shows strep & enterobacter * D/C empiric Tx w/ IV Vancomycin and Zosyn. * ID: Donny consulted 07/14. Appreciate recs. Recommend Quinolone & Augmentin for 2 wks. Believes infections is related to biliary stent, so will likely will re-occur if it is with completion of Abx. * Started on Augmentin & Cipro * Lactic acid wnl, CRP 18.69, Procalcitonin 11.6> 4.46 > 2.09 * CXR: patchy airspace opacities in R midlung, RLL/LLL concerning for pneumonia. Pt denies cough. * CT: New Pulmonary mets. Pleural effusion, ascites, & anasarca. Fluid collection around common femoral arteries. * Consulted oncology this morning to let them know of new mets in lungs. * Pt is self-pay and has no insurance. Will limit labs/imaging to only those absolutely necessary. 2. Peripheral vascular disease, s/p wound debridement on R ankle * Will monitor and make [facility] aware of pt's admission & consulted yesterday due to clots in foot increasing. * Pain in foot * Started on Percocet 5 and increased to Percocet 10 Q4 * Increased Lyrica to 75 mg BID 3. Anemia, Improving Hgb 7.9 (07/11) * Has required several transfusions in the past, has also had transfusion reaction in the past. * H&H 07/16: 7.6 * Iron studies yesterday showed low Iron but high ferritin. 4. DM II * Insulin regimen 70/30, 25 units qAM and 12 units qPM * Had low overnight. Adjusted insulin regimen. Only high was after dinner, but he did not receive his insulin until after check. * Performing Accuchecks with home monitor * Will decrease evening insulin by 5 units 5. Pancreatic cancer * Undergoing chemotherapy, but unable to get consistent treatment due to hospitalizations * Onc consulted & following along. Scheduled chemo on 07/17 @ 1:30 pm 6. H/o prostate cancer * Will monitor for other symptoms * Hx of prostate removal 7. H/o arterial blood clot * s/p fem-pop bypass. * Chronic wound, last debridement 07/12 8. H/o dvt * Currently on warfarin 5 mg except Monday & Monday 6 mg * INR: 2.3 Code: Full VTE: Warfarin Dispo: Medical inpt. Will touch base with Dr. Kohli about follow-up. Needs to meet with Palliative today. Possible d/c if all is met. Addendum - Attending - Attending Attestation Date/Time: 07/17/19 0473 I personally evaluated the patient and discussed the management with the team. I agree with the History, Examination, Assessment and Plan documented above with any addition or exceptions noted below. Discussed with patient and concerning hypoglycemia. He is at risk for a repeat event despite serially decreasing insulin. I explained this to the family and the need for checks in the evening and overnight if they were to go home. I would prefer they stay one more night and be discharged early in the AM in light of his poor PO intake and serial hypoglycemia. They will think about it.
[2019-07-17] MEDS ORDERED: oxyCODONE/Acetaminophen 5 mg/325 mg Tablet PO PRN (07:02)
[2019-07-17 07:47] VITALS: TEMP 98
[2019-07-17] MEDS: Pregabalin 50 MG CAP PO SCH (08:38)
[2019-07-17] MEDS: MULTIVITAMIN PO SCH (08:38)
[2019-07-17] MEDS: ALEVE 220 MG PO SCH (08:39)
[2019-07-17] MEDS: FISH OIL 1200 MG PO SCH (08:39)
[2019-07-17] MEDS: NIACIN 500 MG PO SCH (08:39)
[2019-07-17] MEDS: FEXOFENADINE HCL 180 MG PO SCH (08:40)
[2019-07-17] MEDS: Furosemide 20 MG TAB PO SCH (08:40)
[2019-07-17] MEDS ORDERED: HumuLIN 70/30 (300 UNITS/3 ML VIAL) SC SCH ×3 (09:00→21:00)
[2019-07-17] MEDS ORDERED: Pregabalin 75 MG CAP PO SCH (09:00)
--- NOTE | 2019-07-17 09:47 | PDOC.MOPN ---
Interval History: complains of right leg pain. - Vital Signs Vital Signs: Vital Signs (12 hours) Temp Pulse Resp BP BP Pulse Ox 07/17/19 08:00 96 07/17/19 07:44 98.0 F 96 18 162/79 H 96 07/17/19 01:13 90 170/84 H 07/17/19 00:00 97.8 F 91 20 171/88 H 97 Weight Admit Weight 153 lb 5 oz Weight 153 lb 5 oz - Physical Exam General: Alert, Oriented x3, No acute distress HEENT: Atraumatic, PERRLA, EOMI, Mucous membr. moist/pink Lungs: Clear to auscultation, Normal air movement Cardiovascular: Regular rate, Normal S1, Normal S2, No murmurs, Gallops, Rubs Abdomen: Normal bowel sounds, Soft, No tenderness, No hepatospenomegaly, No masses Extremities: Other Neurological: Normal speech Psych/Mental Status: Mental status NL - Labs Result Diagrams: 07/16/19 07:50 07/16/19 07:50 Lab results: Laboratory Results - last 24 hr 07/17/19 00:56: POC Glucose 154 H 07/17/19 00:22: POC Glucose 44 L* 07/14/19 11:56: Folate Hemolysate 333.8, RBC Folate 1757, Hematocrit 19.0 L Status: lab reviewed by me A/P - Problem (1) Bacteremia Current Visit: Yes Code(s): R78.81 - BACTEREMIA Status: Acute (2) Pancreatic adenocarcinoma Current Visit: No Code(s): C25.9 - MALIGNANT NEOPLASM OF PANCREAS, UNSPECIFIED Status: Chronic - Plan Plan: hypoglycemia this am, insulin adjusted per [facility] Residents continue antibiotics per ID. Afebrile for several days Continue oxy for leg pain, may need amputation at some point Continue chemo this week.
[2019-07-17] MEDS: Acetaminophen 500 MG TAB PO SCH (11:43)
[2019-07-17 12:02] VITALS: BP 145/75
--- NOTE | 2019-07-18 05:34 | PQF ---
[employer] V[employer] Publisher Development Crystal Reports Winform ViewerTali MONK JR, JULIE [id number] CLINICAL DOCUMENTATION CLARIFICATION FORM: POST DISCHARGE Addendum to original discharge summary date: ____ Late entry note date: __ DATE: 07/18/2019 ATTN: WES ZHOU Please exercise your independent, professional judgment in responding to the clarification form. Clinical indicators are provided on the bottom of this form for your review Please check appropriate box(es): Etiology of SEPSIS [ ] Sepsis due to Complication of MedPort [ ] Sepsis due to biliary stent complication [ ] Sepsis due to Complication of Debridement surgery [ x ] Sepsis due to Unknown etiology [ ] Other diagnosis [ ] Unable to determine In addition, please specify: Present on Admission (POA): [ ] Yes [ ] No [ ] Unable to determine For continuity of documentation, please document condition throughout progress notes and discharge summary. Thank You. CLINICAL INDICATORS - SIGNS / SYMPTOMS / LABS Sepsis 2/2 bacteremia - Documented in H&P on 07/13 by Todd Carnes Surgical debridement of RLE wound yesterday - Documented in H&P on 07/13 by Todd Carnes Infection related to Biliary stent - Documented in Hospital PNs on 07/17 by Joe Grimm He has Medport that was placed 06/18/19 - Documented in H&P on 07/13 by Todd Carnes PVD s/p wound debridement on RT ankle - Documented in Hospital PNs on 07/16 by Joe Grimm RISK FACTORS DM Pancreatic cancer Chronic Wound last debridement 07/12 - Documented in Hospital PNs on 07/16 by Joe Grimm TREATMENTS: will empirically treat with IV Vancomycin and Zosyn - Documented in H&P on by Todd Carnes Redraw blood culture. Lactic acid, Procalcitonin ESR and CRP - Documented in H& P on 07/13 by Todd Carnes We will monitor and make [facility] aware of pt's admission & consulted yesterday due to clots in foot increasing - Documented in Hospital PNs on 07/16 by Joe Grimm (This form is maintained as a part of the permanent medical record) 2014 [employer]. All Rights Reserved Arleth [email or web address] [not provided] MTDD
--- NOTE | 2019-07-18 13:40 | DIS ---
DATE OF ADMISSION: 07/13/2019 DATE OF DISCHARGE: 07/17/2019 RESIDENT: Alfa Diaz MD. ADMITTING ATTENDING: Ozzy Cordero MD. DISCHARGE ATTENDING: Dr. Jesus Roque. CONSULT: ID, Dr. Hines 07/14/2019 who recommended a course of Augmentin and Cipro for two weeks. Oncology, Dr. Dinh, 07/16/2019 scheduled for an appointment on 07/18/2019 at 1: 30 am for chemo. CV surgeon Dr. Menendez, 07/16/2019, follow up with him for wound care and to assess wound after graft in 1 week. PROCEDURES: 07/13/2019, chest x-ray shows patchy airspace opacities involving the right lower lobe and left lower lobes suspicious for pneumonia. CT abdomen and pelvis 07/14, showed no pulmonary mets, stable without metastasis. Pancreatic mass appears slightly less prominent than on CT examination on 05/20/2019. Pleural effusions, ascites, and anasarca suggesting 3rd spacing. Interval postprocedural changes of femoral-femoral bypass graft. There is fluid collection surrounding the common femoral arteries and bypass graft traversing the anterior pelvis within the subcutaneous tissues. This may reflect a postoperative fluid collection. However, superimposed infection cannot be entirely excluded. PRIMARY DIAGNOSES: 1. Sepsis secondary to gram-negative emi bacteremia. 2. Peripheral vascular disease, status post wound debridement, right ankle. 3. Pancreatic cancer. SECONDARY DIAGNOSES: 1. Anemia. 2. Diabetes type 2. 3. History of prostate cancer. 4. History of arterial blood clot. 5. History of deep venous thrombosis. DISCHARGE MEDICATIONS: 1. Augmentin 875 mg p.o. q.8 hours for 14 days. 2. Cipro 500 mg p.o. b.i.d. for 14 days. 3. Insulin 25 units in the morning and 12 units in the evening. 4. Lyrica 75 mg b.i.d. 5. Warfarin on Monday and Monday, 6 mg; 5 mg on Monday, Monday, , Monday, and Monday. 6. Percocet 5 mg take two tabs p.r.n. q.4 hours. Discontinue Medications: 1. Vancocin. 2. Meropenem. 3. Toradol. HISTORY OF PRESENT ILLNESS: The patient is a 59-year-old male, currently being treated for pancreatic cancer. He has a longstanding history is cyclical recurring fevers that has been worked up for years in the hospital, yesterday for surgical debridement of a right lower extremity wound and noted to be febrile with rigors at that time. Blood cultures were drawn. Today, the patient was notified that the blood cultures were positive. Dr. Marley recommended that the patient be admitted for sepsis workup and close monitoring. He has been feeling about usual self. Slightly short of breath. He notes rhinorrhea and otherwise, he is asymptomatic. His history began in March with weakness and fatigue around the time he had a cholecystectomy. It was then discovered that he had pancreatic cancer, nocturia , acute occlusion of his external iliac artery and resulted in a right iliofemoral thrombectomy, left common femoral endarterectomy and fem-fem bypass on the same day. Postoperatively, he had another thrombus, which resulted in the femoral- popliteal bypass and multiple thrombectomies. In the past, there has been questionable osteomyelitis of the right great toe. He has also had bilateral pulmonary emboli that has been stable from March notes. He had a MediPort that was placed on 06/18/2019. Sepsis secondary to gram-negative emi bacteremia, improving. * Blood cultures were drawn, elevated white blood count and positive blood cultures during procedure on 07/12/2019. * Preliminary blood cultures grew Enterobacter and Klebsiella pneumoniae. * Susceptibility shows Klebsiella pansensitive and Enterobacter resistant to cephalosporins and Ceftin. * Repeat blood culture showed Strep and Enterobacter. * Vancomycin and Zosyn were used, but discontinued per ID's recommendation, who was consulted on 07/14. Dr. Hines recommended quinolone and Augmentin for two weeks.Hopefully, he has infections related to biliary stents and likely will reoccur with completion of antibiotics. * Lactate within normal limits. * CRP 18.69. * Procalcitonin was elevated at 11.6 on admission, but it trended down to 2.9. * Chest x-ray as noted above as well as CT as noted above. * Consulted Oncology with information of the Pulmonary notes from [facility]. Peripheral vascular disease, status post wound debridement, right ankle. * Increasing pain in right foot around the toes. * He is given Percocet 5 two tabs q.4 hours p.r.n., which improved pain. * Increase Lyrica from 100 mg at bedtime to 75 mg b.i.d. Anemia, hemoglobin 7.9 the day before admission. * Hemoglobin on discharge was 7.6. * Iron studies showed low iron, but high ferritin. Diabetes type 2. * Insulin regimen was changed to 70/30, 25 units in the morning and 12 units in the evening. * The patient had a few overnight episodes of low blood sugars between midnight and 4 am. * Recommended stamp machine servicer checks of blood sugars at home. Pancreatic cancer. * Undergoing chemotherapy with Dr. Dinh. Next appointment scheduled for 07/17 at 1:30 p.m. History of prostate cancer * We will monitor. * The patient has had prostate removal. History of arterial blood clot. * Status post fem pop bypass. * Chronic wound debridement 07/12. * History of DVT, currently on warfarin 5 mg except on Monday and Monday when he preet 6 mg. * INR was 2.3 during admission. DISPOSITION: Stable. DISCHARGE INSTRUCTIONS: 1. Location: Home. 2. Diet: Diabetic. 3. Activity: As tolerated. 4. Followup with surgeon who placed biliary stent, Dr. Marley in 7 days and Shon in 7 days. Job ID: [id number] MTDD
--- NOTE | 2019-07-18 21:42 | PQF ---
[employer] Crosscutter Crystal Reports Winform ViewerTali MONK JR, JULIE [id number] CLINICAL DOCUMENTATION CLARIFICATION FORM: POST DISCHARGE Addendum to original discharge summary date: ____ Late entry note date: __ DATE: 07/18/2019 ATTN: WES ZHOU Please exercise your independent, professional judgment in responding to the clarification form. Clinical indicators are provided on the bottom of this form for your review Please check appropriate box(s) to clarify if the following diagnosis has been ruled in or ruled out: ____PNEUMONIA__(CDI/Coding list diagnosis here) [ ] Ruled in diagnosis [ ] Continue to treat [ ] Resolved [ x ] Ruled out diagnosis [ ] Cannot rule out diagnosis [ ] Other diagnosis [ ] Unable to determine In addition, please specify: Present on Admission (POA): [ ] Yes [ ] No [ ] Unable to determine For continuity of documentation, please document condition throughout progress notes and discharge summary. Thank You. CLINICAL INDICATORS - SIGNS / SYMPTOMS / LABS Recurring fever - Documented in H&P on 07/13 by Todd More CXR: patchy airspace opacities in R midlung, RLL/LLL concerning for pneumonia - Documented in Hospital PNs on 07/17 by Joe Chiu WBC 11.8 on 07/16 - Documented in Laboratory Sepsis 2/2 Bacteremia - Documented in H&P on 07/13 by Todd More RISK FACTORS DM Pancreatic Cancer TREATMENTS Chest X ray Will empirically treat with IV vancomycin and Zosyn - Documented in H&P on by Todd More Re draw blood culture lactic acid, procalcitonin - Documented in H&P on 07/13 by Todd More SAP Crosscutter Crystal Reports Winform Viewer (This form is maintained as a part of the permanent medical record) 2014 [employer]. All Rights Reserved Arleth [email or web address] [not provided] MTDD
== END 2019-07-17 16:29 | disposition home or self-care (01) | DRG 872 ==
LOC: T4-A 15:23
PROVIDERS: ADMIT Family Medicine; ATTEND Family Medicine
DX: A41.50 Gram-negative sepsis, unspecified (principal); C25.9 Malignant neoplasm of pancreas, unspecified; C78.7 Secondary malignant neoplasm of liver and intrahepatic bile duct; C78.89 Secondary malignant neoplasm of other digestive organs; D64.9 Anemia, unspecified; E11.649 Type 2 diabetes mellitus with hypoglycemia without coma; K21.9 Gastro-esophageal reflux disease without esophagitis; Z90.49 Acquired absence of other specified parts of digestive tract; Z79.899 Other long term (current) drug therapy; Z88.8 Allergy status to other drugs, medicaments and biological substances; Z79.01 Long term (current) use of anticoagulants; Z85.46 Personal history of malignant neoplasm of prostate; Z86.711 Personal history of pulmonary embolism; E11.51 Type 2 diabetes mellitus with diabetic peripheral angiopathy without gangrene
CPT/HCPCS: 36415; 36416; 71045; 74177; 80053; 81001; 82533; 82607; 82728; 82747; 83540; 83550; 83605; 84145; 85014; 85018; 85025; 85049; 85610; 85652; 85730; 86140; 87040; 87077; 87086; 87149; 90471; 90670; G0009; J1815; J1885; J2185; J2543; J3370; J3490; J7050; J7070; Q9967

== ENCOUNTER 2019-08-06 08:55 | Day surgery (SDC) | payer OTHER ==
[2019-08-06] MEDS ORDERED: Sodium Chloride 0.9% 20 ML ONE (09:12)
[2019-08-06] MEDS ORDERED: Acetaminophen 500 MG TAB PO PRN (09:30)
[2019-08-06] MEDS ORDERED: diphenhydrAMINE 25 MG CAP PO PRN (09:31)
[2019-08-06 15:01] VITALS: BP 154/73; TEMP 98.3
[2019-08-06 15:27] LABS: Hemoglobin 8.2 g/dL (14.0-18.0)
== END 2019-08-06 15:01 | disposition home or self-care (01) ==
LOC: ONC/OP 08:55
PROVIDERS: ATTEND Internal Medicine Hematology & Oncology
PROC: 30233R1 Transfusion of Nonautologous Platelets into Peripheral Vein, Percutaneous Approach (ICD-10-PCS; principal; 2019-08-06)
PROC: 30233N1 Transfusion of Nonautologous Red Blood Cells into Peripheral Vein, Percutaneous Approach (ICD-10-PCS; principal; 2019-08-06)
DX: D64.9 Anemia, unspecified (principal); D69.6 Thrombocytopenia, unspecified; Z88.8 Allergy status to other drugs, medicaments and biological substances; Z91.02 Food additives allergy status
CPT/HCPCS: 36430; 85014; 85018; 86850; 86900; 86901; J1642; P9016; Q0163

== ENCOUNTER 2019-08-13 14:07 | Outpatient (CLI) | payer OTHER ==
[2019-08-13 17:25] LABS: INR-International Normal Ratio 1.4; Prothrombin Time 17.5 SEC (12.0-14.7)
[2019-08-13 17:47] LABS: Anion Gap 14 mmol/L (10-20); BUN (Urea Nitrogen) 18 mg/dL (8.4-25.7); Calc. Creatinine Clearance 0 mL/min (70-130); Calcium 8.6 mg/dL (7.8-10.44); Carbon Dioxide 25 mmol/L (22-29); Chloride 98 mmol/L (98-107); Estimated GFR-MDRD Greater than 90; Glucose 189 mg/dL (70-105); Potassium 4.7 mmol/L (3.5-5.1); Sodium 132 mmol/L (136-145)
[2019-08-13 17:48] LABS: Anisocytosis SLIGHT = 6-15 cells (100X) (0-5/hpf); Band 5 % (5-11); Eosinophils 1 % (0-10); Hemoglobin 6.8 g/dL (14.0-18.0); Hypochromia SLIGHT = 6-15 cells (100X) (0-5/hpf); Lymphocytes 4 % (21-51); MDiff Complete? YES; Mean Corpuscular HGB CONC 31.5 g/dL (32.0-36.0); Mean Corpuscular Hemoglobin 26.8 pg (27.0-31.0); Mean Corpuscular Volume 85.1 fL (78.0-98.0); Mean Platelet Volume 9.9 fL (7.4-10.4); Monocytes 8 % (0-10); Neutrophil 80 % (42-75); Platelet Count 152 thou/uL (130-400); Platelet Morphology Comment Appears Adequate; Polychromasia MODERATE = 3-4 cells (100X) (0-2/hpf); RBC Distribution Width 17.5 % (11.5-14.5); Reactive Lymphocytes 2 % (0-10); Red Blood Cell (RBC) Count 2.54 mill/uL (4.70-6.10); Schistocytes SLIGHT = 2-5 cells (100X) (0-1/hpf); White Blood Cell (WBC) Count 22.2 thou/uL (4.8-10.8)
--- NOTE | 2019-08-13 18:04 | RAD ---
Chest 2 views HISTORY: Preop. COMPARISON: 07/13/2019. FINDINGS: Cardiac silhouette and pulmonary vasculature are unremarkable. Subtle ill-defined parenchym al opacity within the right upper and lower lobes unchanged in appearance. Ossified granulomata are consistent with healed granulomatous disease. Mediastinum is midline with left subclavian Port-A-Cath postoperative changes of the cervical spine. No lobar consolidation or evidence of pneumothorax. IMPRESSION: Patchy right upper and lower lobes subtle parenchymal opacity stable compared to the [facility] t radiograph from 07/13/2019. It was not present on the CT exam from 06/16/2019. Possible atelectasis versus subtle infiltrate. Clinical correlation regarding other signs and symptoms of pneu monitis right lung is required. Consider CT chest for further evaluation.
== END 2019-08-13 14:08 | disposition home or self-care (01) ==
LOC: LABBT 14:07
PROVIDERS: ATTEND Thoracic Surgery (Cardiothoracic Vascular Surgery)
DX: Z01.818 Encounter for other preprocedural examination (principal); I70.221 Atherosclerosis of native arteries of extremities with rest pain, right leg; R91.8 Other nonspecific abnormal finding of lung field
CPT/HCPCS: 36430; 71046; 80048; 85025; 85610; 86850; 86900; 86901; 93005; 93010; P9016

== ENCOUNTER 2019-08-13 16:15 | Inpatient (IN) | payer OTHER ==
[2019-08-14] MEDS ORDERED: Fentanyl 100 MCG/2 ML VIAL ONE ×5 (08:22→12:33)
[2019-08-14] MEDS ORDERED: Midazolam HCl 2 mg/2 ml Vial ONE (08:33)
[2019-08-14] MEDS ORDERED: PROPOFOL 200 MG/20 ML VIAL ONE (10:21)
[2019-08-14] MEDS ORDERED: Ondansetron PF 4 MG/2 ML Vial ONE (10:21)
[2019-08-14] MEDS ORDERED: Bupivacaine HCl 0.5%/Epinephrine 1:200,000/PF 30 ml Vial ONE (10:21)
[2019-08-14] MEDS ORDERED: Ketorolac Tromethamine 30 MG/ML VIAL ONE (10:21)
[2019-08-14] MEDS ORDERED: Succinylcholine Chloride 20 MG/ML 10 ml SYRINGE FS ONE (10:21)
[2019-08-14] MEDS ORDERED: Ondansetron HCl/PF 4 MG/2 ML Vial IVP PRN (11:02)
[2019-08-14] MEDS ORDERED: Sodium Chloride 0.9% 10 ML ONE (11:38)
[2019-08-14] MEDS: HumuLIN 70/30 (300 UNITS/3 ML VIAL) SC SCH ×2 (13:08→21:15)
[2019-08-14] MEDS: Fish Oil 1,000 MG CAP PO SCH (13:08)
[2019-08-14] MEDS: Loratadine 10 MG TAB PO SCH (13:08)
[2019-08-14] MEDS: Amoxicillin/Potassium Clav 875 MG TAB PO SCH ×2 (13:08→20:01)
[2019-08-14] MEDS: Ferrous Sulfate 325 MG TAB PO SCH (13:08)
[2019-08-14] MEDS: Furosemide 20 MG TAB PO SCH (13:08)
[2019-08-14] MEDS: Multivit, Therapeutic 1 TAB PO SCH (13:09)
[2019-08-14] MEDS: Pregabalin 75 MG CAP PO SCH ×2 (13:09→20:00)
[2019-08-14] MEDS: Niacin 500 MG TAB PO SCH (13:09)
--- NOTE | 2019-08-14 14:11 | OP ---
DATE OF PROCEDURE: 08/14/2019 PROCEDURE PERFORMED: Right below-knee amputation. PREOPERATIVE DIAGNOSIS: Pancreatic cancer with hypercoagulable syndrome and gangrenous right foot. POSTOPERATIVE DIAGNOSIS: Pancreatic cancer with hypercoagulable syndrome and gangrenous right foot. ANESTHESIA: General endotracheal anesthesia. INDICATIONS: The patient is a 59-year-old man with what proved to be some underlying peripheral vascular disease, who developed both venous and arterial thrombotic events shortly after he was diagnosed with metastatic pancreatic cancer. Attempts at re-establishing arterial supply were only modestly successful with inflow being successfully re-established, but outflow remaining problematic. He has been involving gangrenous changes in his toes on the right side and vein graft harvest incision at the ankle have dehisced. Last week, he had relatively sudden onset of massive lower extremity swelling and when seen in office had lost a previously palpable pulse in his femoral graft and it had dramatic progression of ischemic changes involving the entire right foot. He is now taken to the operating room for amputation. FINDINGS: Extremely edematous tissues, but the muscle at the level of the amputation was pink and twitched appropriately when stimulated. DESCRIPTION OF PROCEDURE: After informed consent was obtained, the patient was taken to the operating room and placed in supine position on the operating room table. After the induction of general anesthesia and verification that the right lower extremity was indeed the aside to undergo below-knee amputation. The right lower extremity was prepped and draped in sterile fashion. Open wounds at the ankle and foot were excluded from the field. Lines of amputation were mapped out and an incision was made transversely over the anterior half of the lower leg at about a handbreadth below the knee. The lines of incisions were then carried parallel to the long axis of the leg medially and laterally. The electrocautery was used to control hemostasis and to carry the incisions through the fascia and to expose the tibia and the fibula. The tibial vessels in the anterior compartment at the level of the incision were ligated and divided. Periosteal elevator was used to elevate periosteum from the tibia and the fibula. The tibia was divided with a Gigli saw angling it cranially as the saw passed from posterior to anterior. Bone ac were used to divide the fibula slightly above the level of tibial transection. The posterior flap of the amputation was completed with an amputation knife and hemostasis was established with the use of silk ligatures and the electrocautery. The posterior flap was tailored with a knife and electrocautery and the bones were smoothed with a rasp. The wound was irrigated with 3 L of sterile irrigant utilizing a Pulsavac device and then the posterior flap was swung forward over the stumps of the bones and tacked in place with interrupted Vicryl sutures and then the fascial level closure was completed with a running Vicryl. The skin was closed with widely spaced interrupted nylon suture and the wound was dressed. The patient was awakened and extubated in the operating room and taken to the recovery area in stable condition. Job ID: [id number]
[2019-08-14 15:31] VITALS: BMI 23.0
[2019-08-14] MEDS: oxyCODONE/Acetaminophen 5 mg/325 mg Tablet PO PRN ×2 (19:54→23:54)
[2019-08-14] MEDS: Simvastatin 5 MG TAB PO SCH (20:00)
[2019-08-15 04:33] LABS: Band 1 % (5-11); Hemoglobin 7.5 g/dL (14.0-18.0); Lymphocytes 6 % (21-51); MDiff Complete? YES; Mean Corpuscular HGB CONC 31.9 g/dL (32.0-36.0); Mean Corpuscular Hemoglobin 27.5 pg (27.0-31.0); Mean Corpuscular Volume 86.1 fL (78.0-98.0); Mean Platelet Volume 8.7 fL (7.4-10.4); Metamyelocyte 2 % (0-0); Monocytes 5 % (0-10); Neutrophil 85 % (42-75); Platelet Count 231 thou/uL (130-400); Platelet Morphology Comment Appears Adequate; Promyelocytes 1 % (0-0); RBC Distribution Width 17.2 % (11.5-14.5); Red Blood Cell (RBC) Count 2.71 mill/uL (4.70-6.10); White Blood Cell (WBC) Count 19.7 thou/uL (4.8-10.8)
[2019-08-15] MEDS: oxyCODONE/Acetaminophen 5 mg/325 mg Tablet PO PRN ×5 (05:48→22:32)
[2019-08-15 07:55] LABS: INR-International Normal Ratio 1.3; Prothrombin Time 16.4 SEC (12.0-14.7)
[2019-08-15 07:56] LABS: PTT 35.3 SEC (22.9-36.1)
[2019-08-15] MEDS: Niacin 500 MG TAB PO SCH (08:57)
[2019-08-15] MEDS: Fish Oil 1,000 MG CAP PO SCH (08:57)
[2019-08-15] MEDS: Loratadine 10 MG TAB PO SCH (08:58)
[2019-08-15] MEDS: Ferrous Sulfate 325 MG TAB PO SCH (08:58)
[2019-08-15] MEDS: Amoxicillin/Potassium Clav 875 MG TAB PO SCH ×2 (08:58→21:04)
[2019-08-15] MEDS: Pregabalin 75 MG CAP PO SCH ×2 (08:58→21:05)
[2019-08-15] MEDS: Multivit, Therapeutic 1 TAB PO SCH (08:58)
[2019-08-15] MEDS: Furosemide 20 MG TAB PO SCH (08:59)
[2019-08-15] MEDS: Enoxaparin Sodium 60 MG/0.6 ML SYRINGE SC SCH ×2 (08:59→21:04)
[2019-08-15] MEDS: HumuLIN 70/30 (300 UNITS/3 ML VIAL) SC SCH ×2 (09:08→21:05)
[2019-08-15] MEDS ORDERED: Warfarin Sodium 10 MG TAB PO SCH (17:00)
[2019-08-15] MEDS: Simvastatin 5 MG TAB PO SCH (21:07)
[2019-08-16] MEDS ORDERED: Piperacillin/Tazobactam 3.375 GM in Sodium Chloride 0.9% 100 ML IVPB SCH (00:15)
[2019-08-16] MEDS: oxyCODONE/Acetaminophen 5 mg/325 mg Tablet PO PRN ×2 (03:59→20:28)
[2019-08-16] MEDS: Piperacillin/Tazobactam 3.375 GM in Sodium Chloride 0.9% 100 ML IVPB SCH ×2 (05:50→12:32)
[2019-08-16] MEDS: oxyCODONE/Acetaminophen 5 mg/325 mg Tablet PO SCH ×4 (08:41→20:27)
[2019-08-16] MEDS: Docusate 100 MG CAP PO SCH ×2 (08:41→20:25)
[2019-08-16] MEDS: Furosemide 20 MG TAB PO SCH (08:41)
[2019-08-16] MEDS: Pregabalin 75 MG CAP PO SCH ×2 (08:41→20:26)
[2019-08-16] MEDS: Niacin 500 MG TAB PO SCH (08:42)
[2019-08-16] MEDS: Amoxicillin/Potassium Clav 875 MG TAB PO SCH (08:42)
[2019-08-16] MEDS: Loratadine 10 MG TAB PO SCH (08:42)
[2019-08-16] MEDS: Enoxaparin Sodium 60 MG/0.6 ML SYRINGE SC SCH (08:43)
[2019-08-16] MEDS: Fish Oil 1,000 MG CAP PO SCH (08:43)
[2019-08-16] MEDS: Multivit, Therapeutic 1 TAB PO SCH (08:43)
[2019-08-16] MEDS: Ferrous Sulfate 325 MG TAB PO SCH (08:43)
[2019-08-16] MEDS: HumuLIN 70/30 (300 UNITS/3 ML VIAL) SC SCH ×2 (08:44→20:34)
[2019-08-16 09:16] LABS: Hemoglobin 8.4 g/dL (14.0-18.0); Mean Corpuscular HGB CONC 31.7 g/dL (32.0-36.0); Mean Corpuscular Volume 88.2 fL (78.0-98.0); Mean Platelet Volume 8.5 fL (7.4-10.4); Platelet Count 261 thou/uL (130-400); RBC Distribution Width 17.5 % (11.5-14.5); White Blood Cell (WBC) Count 25.9 thou/uL (4.8-10.8)
[2019-08-16 09:24] LABS: INR-International Normal Ratio 1.6; PTT 33.7 SEC (22.9-36.1); Prothrombin Time 18.8 SEC (12.0-14.7)
[2019-08-16 09:34] LABS: Band 2 % (5-11); Eosinophils 2 % (0-10); Hypochromia SLIGHT = 6-15 cells (100X) (0-5/hpf); Lymphocytes 4 % (21-51); MDiff Complete? YES; Monocytes 3 % (0-10); Neutrophil 89 % (42-75); Platelet Morphology Comment Appears Adequate; Polychromasia SLIGHT = 2-3 cells (100X) (0-2/hpf)
[2019-08-16 09:35] LABS: ALT (SGPT) 34 U/L (8-55); AST (SGOT) 25 U/L (5-34); Albumin 2.2 g/dL (3.5-5.0); Alkaline Phosphatase 859 U/L (40-110); Anion Gap 13 mmol/L (10-20); BUN (Urea Nitrogen) 11 mg/dL (8.4-25.7); Calc. Creatinine Clearance 112 mL/min (70-130); Carbon Dioxide 24 mmol/L (22-29); Chloride 96 mmol/L (98-107); Estimated GFR-MDRD Greater than 90; Globulin 3.3 g/dL (2.4-3.5); Glucose 128 mg/dL (70-105); Protein, Total 5.5 g/dL (6.0-8.3); Sodium 129 mmol/L (136-145)
[2019-08-16] MEDS ORDERED: Meropenem 1 GM in Sodium Chloride 0.9% 100 ML IVPB SCH (14:00)
[2019-08-16] MEDS: MEROPENEM 1 GM/50 ML 1 GM in Premix Bag 1 BAG IVPB SCH ×2 (15:04→21:10)
[2019-08-16] MEDS ORDERED: Warfarin Sodium 3 MG TAB PO SCH (17:00)
--- NOTE | 2019-08-16 19:18 | CON ---
DATE OF CONSULTATION: 08/16/2019 REASON FOR CONSULTATION: Bacteremia. HISTORY OF PRESENT ILLNESS: A 59-year-old familiar to me from two prior admissions for right foot complications related to peripheral vascular disease and previous surgical intervention as well as complications of pancreatic cancer with bacteremia. At the last visit, he had polymicrobial bacteremia with Enterobacter, Klebsiella, and Streptococcus. At that time, we felt that the biliary tract could be a source that it was less likely that the port was a source, and the foot was considered a possibility as well. He had had a fem-fem bypass with chitina veins, so that was less likely to be involved. Unfortunately, the area below the knee was not successfully revascularized and he was admitted now with having progression of the areas of necrosis and had to have a BK amputation. The procedure was carried out two days ago by Dr. Menendez and nothing really unremarkable was found in the area. The pathology demonstrates ischemic ulceration/gangrene with skin and soft tissue margins viable and atherosclerosis. We were asked to see the patient because of 1 out of 2 sets positive for Enterobacter species yet to be fully identified and susceptibility tested. Mr. Mathis is awake. He has quite severe cognitive dysfunction and memory issues, but the was able to give me a full history and apparently, the patient had had no documented fever or chills. No headaches. No cough or abdominal pain. No genitourinary symptoms. PAST MEDICAL HISTORY: Includes peripheral vascular disease, previous fixation of the first MTP right foot, prostate cancer in remission after treatment and metastatic pancreatic cancer with lung and liver involvement and biliary obstruction, which required stenting at [facility]. He has had a left subclavian port placed for chemotherapy, prior DVT with pulmonary embolism on anticoagulation, and one previous Bacteroides bacteremia. FAMILY HISTORY: Leukemia. SOCIAL HISTORY: Former smoker. . Lives in the area. ALLERGY HISTORY: Rocuronium. CURRENT MEDICATIONS: 1. Amoxicillin. 2. Feosol. 3. Fish oil. 4. Lasix. 5. Insulin. 6. Theragran. 7. Niacin. 8. Oxycodone. 9. Zosyn. 10. Zocor. 11. Coumadin. PHYSICAL EXAMINATION: VITAL SIGNS: T-max 103.3. He has defervesced now, it is little bit up to 99.8 the last check. BP 126/75, pulse 100, respirations 16, and O2 saturation 96. SKIN: Shows the port with no inflammatory changes. The right BKA with a normal postop appearance. The patient has a port accessed at the movement and is voiding in the urinal. No lymphadenopathy. HEENT: Ocular movements conjugate. Sclerae white. Pupils are equal. Somewhat pale conjunctivae. Oral cavity unremarkable. NECK: Supple. LUNGS: Symmetric clear breath sounds. HEART: S1 and S2. Regular rate. No S3 or S4. ABDOMEN: Soft, not distended or tender. No ascites. No bladder distention. EXTREMITIES: No other joint inflammatory process. Moves extremities equally. NEUROLOGIC: He has quite significant cognitive impairment. Cannot remember pretty much anything, has a lot of amnesia or just plain dementia. This could be a drug-induced effect on top of underlying cognitive dysfunction. LABORATORY DATA: White cell count is up from 19.7 to 25.9, hemoglobin 8.4, and platelets 261 with 89% neutrophils. Sodium 129, creatinine 0.66 with normal transaminases and alkaline phosphatase 859 and albumin 2.2. One out of two sets positive for the organisms discussed. Chest x-ray with patchy and right upper and lower lobe subtle parenchymal opacities, stable most likely the metastatic malignancy. ASSESSMENT: 1. PVD with gangrene right foot, status post right BKA after failure of revascularization. 2. Metastatic pancreatic malignancy to liver and lungs and biliary tract obstruction requiring stenting. 3. Port access for chemotherapy. 4. Recurrent episodes of bacteremia, polymicrobial in the past of unclear source. We had three main concerns, one would be the port. The second, the biliary system with the stent and possible cholangitis. The third, the foot with area of gangrene. DISCUSSION: The possibility of bacteremia from the port will depend on the results of the second sample of blood that was submitted. If the second turns positive, then we will have to reconsider the port as a source, since he may have become colonized following the first episode of polymicrobial bacteremia. The biliary tract appears to be less likely to be the source in view of the normalization of liver functions for the most part, except for alkaline phosphatase and finally, the foot could be the source as well, which would imply that this recurrence of bacteremia would not be an issue in the future. The graft is unlikely to be the source since there are no inflammatory changes noticeable and was a chitina vein graft. The management now would include repeating blood cultures after the completion of antimicrobial therapy, monitoring the results of the second set and hopefully transitioning back to ciprofloxacin for discharge planning, if there is a decrease in the white cell count and he remains clinically stable. Job ID: [id number]
[2019-08-16] MEDS: Simvastatin 5 MG TAB PO SCH (20:25)
[2019-08-17] MEDS: oxyCODONE/Acetaminophen 5 mg/325 mg Tablet PO SCH ×6 (00:26→20:20)
[2019-08-17] MEDS: oxyCODONE/Acetaminophen 5 mg/325 mg Tablet PO PRN ×5 (00:27→18:30)
[2019-08-17] MEDS: MEROPENEM 1 GM/50 ML 1 GM in Premix Bag 1 BAG IVPB SCH ×3 (05:18→21:00)
[2019-08-17 05:27] LABS: INR-International Normal Ratio 1.9; Prothrombin Time 21.6 SEC (12.0-14.7)
[2019-08-17] MEDS: HumuLIN 70/30 (300 UNITS/3 ML VIAL) SC SCH ×2 (08:30→20:53)
[2019-08-17] MEDS: Ferrous Sulfate 325 MG TAB PO SCH (08:31)
[2019-08-17] MEDS: Pregabalin 75 MG CAP PO SCH ×2 (08:31→20:21)
[2019-08-17] MEDS: Docusate 100 MG CAP PO SCH ×2 (08:31→20:22)
[2019-08-17] MEDS: Fish Oil 1,000 MG CAP PO SCH (08:31)
[2019-08-17] MEDS: Multivit, Therapeutic 1 TAB PO SCH (08:31)
[2019-08-17] MEDS: Furosemide 20 MG TAB PO SCH (08:33)
[2019-08-17] MEDS: Loratadine 10 MG TAB PO SCH (08:33)
[2019-08-17] MEDS: Niacin 500 MG TAB PO SCH (08:33)
[2019-08-17] MEDS: Warfarin Sodium 5 MG TAB PO SCH (16:47)
[2019-08-17] MEDS: Simvastatin 5 MG TAB PO SCH (20:21)
[2019-08-18] MEDS: oxyCODONE/Acetaminophen 5 mg/325 mg Tablet PO PRN ×6 (00:36→21:08)
[2019-08-18] MEDS: oxyCODONE/Acetaminophen 5 mg/325 mg Tablet PO SCH ×6 (00:36→21:08)
[2019-08-18] MEDS: MEROPENEM 1 GM/50 ML 1 GM in Premix Bag 1 BAG IVPB SCH ×2 (05:36→14:44)
[2019-08-18 07:42] LABS: INR-International Normal Ratio 2.8; Prothrombin Time 29.2 SEC (12.0-14.7)
[2019-08-18] MEDS: HumuLIN 70/30 (300 UNITS/3 ML VIAL) SC SCH ×2 (09:11→22:07)
[2019-08-18] MEDS: Pregabalin 75 MG CAP PO SCH ×2 (09:12→21:07)
[2019-08-18] MEDS: Docusate 100 MG CAP PO SCH ×2 (09:12→21:06)
[2019-08-18] MEDS: Niacin 500 MG TAB PO SCH (09:12)
[2019-08-18] MEDS: Loratadine 10 MG TAB PO SCH (09:12)
[2019-08-18] MEDS: Fish Oil 1,000 MG CAP PO SCH (09:12)
[2019-08-18] MEDS: Multivit, Therapeutic 1 TAB PO SCH (09:12)
[2019-08-18] MEDS: Furosemide 20 MG TAB PO SCH (09:12)
[2019-08-18] MEDS: Ferrous Sulfate 325 MG TAB PO SCH (09:12)
[2019-08-18] MEDS: Warfarin Sodium 5 MG TAB PO SCH (17:04)
--- NOTE | 2019-08-18 17:40 | PRG ---
DATE OF SERVICE: 08/18/2019 SUBJECTIVE: Mr. Mathis was complaining of being bloated with a lot of fluid, particularly in the left lower extremity, sometimes short of breath. No chest pain. Little bit of cough sometimes. No abdominal pain. He had temperature of 100.4 at 8 p.m. yesterday. He is chronically ill appearing, but in no distress, oriented, follows commands. OBJECTIVE: LUNGS: With basilar inspiratory crackles. HEART: S1 and S2, regular rate. ABDOMEN: Soft. Not distended. Port is accessed. EXTREMITIES: 3+ edema in left lower extremity. LABORATORY DATA: White cell count is 25.9 from yesterday, has not been repeated in the last two days. 89% neutrophils. Creatinine was 0.66 on admission. The second set of blood cultures is negative. The first set is positive still. The second one is negative at 48 hours. ASSESSMENT AND DISCUSSION: Peripheral vascular disease with gangrene in right foot, status post right BKA after failure of revascularization; metastatic pancreatic malignancy with liver and lung mets and biliary tract obstruction requiring stenting, port access for chemotherapy; and recurrent episodes of bacteremia; initially polymicrobial, now with Enterobacter with concerns for port, biliary system, or the foot area of gangrene as the culprits. The bacteremia at this time is transient and is only Enterobacter. We will repeat blood cultures and we can switch him to quinolone, preparation for discharge planning. Job ID: [id number]
[2019-08-18] MEDS: Simvastatin 5 MG TAB PO SCH (21:06)
[2019-08-18] MEDS: Cipro 250 MG TAB PO SCH (21:09)
[2019-08-18] MEDS ORDERED: Enoxaparin Sodium 80 MG/0.8 ML SYRINGE SC SCH (22:00)
[2019-08-18] MEDS ORDERED: Fentanyl 100 MCG/2 ML VIAL SLOW IVP PRN (22:44)
[2019-08-19] MEDS: oxyCODONE/Acetaminophen 5 mg/325 mg Tablet PO SCH ×5 (00:40→15:52)
[2019-08-19] MEDS: oxyCODONE/Acetaminophen 5 mg/325 mg Tablet PO PRN ×3 (00:41→18:21)
[2019-08-19] MEDS: Cipro 250 MG TAB PO SCH (05:26)
[2019-08-19 06:02] LABS: INR-International Normal Ratio 3.9; Prothrombin Time 37.8 SEC (12.0-14.7)
[2019-08-19] MEDS: Fish Oil 1,000 MG CAP PO SCH (09:51)
[2019-08-19] MEDS: Niacin 500 MG TAB PO SCH (09:51)
[2019-08-19] MEDS: Ferrous Sulfate 325 MG TAB PO SCH (09:52)
[2019-08-19] MEDS: Multivit, Therapeutic 1 TAB PO SCH (09:52)
[2019-08-19] MEDS: Loratadine 10 MG TAB PO SCH (09:52)
[2019-08-19] MEDS: Docusate 100 MG CAP PO SCH (09:52)
[2019-08-19] MEDS: Furosemide 20 MG TAB PO SCH (09:52)
[2019-08-19] MEDS: Pregabalin 75 MG CAP PO SCH (09:53)
[2019-08-19] MEDS: HumuLIN 70/30 (300 UNITS/3 ML VIAL) SC SCH (09:53)
[2019-08-19] MEDS: Amoxicillin/Potassium Clav 875 MG TAB PO SCH ×2 (10:36→10:37)
[2019-08-19] MEDS ORDERED: Tamsulosin HCl 0.4 MG CAP PO SCH ×3 (13:30→21:00)
--- NOTE | 2019-08-19 17:34 | CON ---
DATE OF CONSULTATION: REASON FOR CONSULTATION: Pancreatic cancer. HISTORY OF PRESENT ILLNESS: Mr. 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 Diagnosis, he had bilateral pulmonary emboli. Shortly after diagnosis, he had right femoral arterial occlusion requiring surgical intervention. He then had tumor fever and infection superimposed upon paraneoplastic coagulopathy. He was on Coumadin. Over the past 2 months, he has had 2 hospitalizations for fever and multiple blood transfusions. He has received 3 cycles of Abraxane and Gemzar. He was last seen by Dr. Kerr on August 12. He was having significant pain from his right lower extremity. The decision was made to proceed with amputation. This was done last week. Over the weekend, the patient began to have mottling of his left lower extremity with significant pain. Apparently, the stump of his right lower extremity is also having some mottling. The patient's INR this morning was 3.9. His Coumadin has currently been held. His pain has been controlled with fentanyl IV and oxycodone every 4 hours. We were asked to see the patient to discuss management. The patient was seen at bedside with and 2 sons present. His pain is currently controlled. He is somnolent, but easily arousable and answers to questions. PAST MEDICAL HISTORY: 1. Stage IV pancreatic adenocarcinoma. 2. Bilateral pulmonary emboli. 3. Right femoral artery occlusion, now status post amputation. 4. Tumor fever. 5. Diabetes mellitus. 6. Hyperlipidemia. 7. History of prostate cancer in 2006. 8. GERD. 9. Hemorrhoids. PAST SURGICAL HISTORY: 1. Prostatectomy. 2. Cholecystectomy. 3. MediPort placement. 4. Right lower extremity amputation. 5. Biliary stent placement. ALLERGIES: NO KNOWN DRUG ALLERGIES. CURRENT MEDICATIONS: 1. Cipro b.i.d. 2. Colace b.i.d. 3. Fentanyl 50 mcg q.1 hour p.r.n. pain. 4. Iron daily. 5. Fish oil daily. 6. Lasix daily. 7. Insulin b.i.d. 8. Theragran daily. 9. Niacin daily. 10. Oxycodone 5/325 one q.4 hours and then p.r.n. 11. Protonix daily. 12. Lyrica 75 mg b.i.d. 13. Zocor daily. 14. Flomax daily. 15. Coumadin 6 mg on Monday, Monday, Monday; 5 mg on Monday, Monday, , Monday. FAMILY HISTORY: Noncontributory. SOCIAL HISTORY: has 3 children. Lives with his . REVIEW OF SYSTEMS: A 10-point review of systems is negative except for pain. PHYSICAL EXAMINATION: VITAL SIGNS: Temperature is 98.8, pulse is 118, respiratory rate 16, blood pressure is 115/75. He is 92% on room air. GENERAL: This is a chronically ill-appearing male, in no acute distress. HEENT: Normocephalic and atraumatic. Pupils are equal and reactive to light. NECK: Supple. CV: Regular rate and rhythm. He is tachycardic. LUNGS: Clear anterior. ABDOMEN: Soft and nontender. Bowel sounds are positive. EXTREMITIES: He has a right BKA and left lower extremity with mottling from his toes to his ankle. HEMATOLOGIC: There is no petechiae or purpura. NEUROLOGIC: Nonfocal. PERTINENT LABORATORY DATA AND X-RAYS: Current WBCs 25.9, hemoglobin 8.4, hematocrit 26.5, platelet count is 261,000, 81% neutrophils, 2% bands, 4% lymphocytes. PT is 37.8, INR is 3.9. Sodium is 129, potassium 4.0, chloride 96, CO2 is 24, BUN is 11, creatinine 0.66, calcium 8, bilirubin 1, AST is 25, ALT 34, alkaline phosphatase is 859. Serum total protein 5.5, albumin 2.2, globulin 3.3. ASSESSMENT: 1. Stage IV pancreatic cancer. 2. Status post right BKA, now with left lower extremity mottling. 3. Supratherapeutic INR. DISCUSSION: The patient's Coumadin will be held. Recheck INR in the morning and possibly resume at his lower dose. Dr. Hines is treating the patient for his intermittent fevers. Over 30 minutes was spent discussing current clinical situation with the family and his extremely poor prognosis. I would not recommend pursuing any further surgical intervention regarding his lower extremities. He is unlikely to get chemotherapy again. We discussed with hospice and they are agreeable to talk to the [facility]. I do not know if he is an inpatient candidate, although he does have significant pain. If not, then he would likely go home with hospice. Thank you for the consult. We will follow his hospital course. Job ID: [id number]
[2019-08-19] MEDS ORDERED: oxyCODONE/Acetaminophen 5 mg/325 mg Tablet PO PRN (20:18)
[2019-08-19] MEDS: Fentanyl 100 MCG/2 ML VIAL SLOW IVP PRN ×2 (20:34→21:30)
[2019-08-19] MEDS ORDERED: HumuLIN 70/30 (300 UNITS/3 ML VIAL) SC SCH (21:00)
[2019-08-19] MEDS ORDERED: oxyCODONE/Acetaminophen 5 mg/325 mg Tablet PO SCH (21:00)
[2019-08-19] MEDS ORDERED: Simvastatin 5 MG TAB PO SCH (21:00)
[2019-08-19] MEDS ORDERED: Pregabalin 75 MG CAP PO SCH (21:00)
[2019-08-19] MEDS ORDERED: Docusate 100 MG CAP PO SCH (21:00)
[2019-08-20 04:29] VITALS: BP 97/63; TEMP 98.7
[2019-08-20] MEDS ORDERED: Ciprofloxacin 500 MG TAB PO SCH (06:00)
--- NOTE | 2019-08-20 06:15 | PQF ---
[employer] Non Morse Intercept Technician Crystal Reports Winform ViewerTali MONK JR, RICARDO S MD [id number] CLINICAL DOCUMENTATION CLARIFICATION FORM: POST DISCHARGE Addendum to original discharge summary date: ____ Late entry note date: __ DATE: 08/20/2019 ATTN:TERRI REED MD Please exercise your independent, professional judgment in responding to the clarification form. Clinical indicators are provided on the bottom of this form for your review Please check appropriate box(es): [ ] Sepsis [ ] Severe sepsis [ ] Septic Shock [ ] Localized infection without sepsis [ ] Other diagnosis [ ] Unable to determine In addition, please specify: Present on Admission (POA): [ ] Yes [ ] No [ ] Unable to determine For continuity of documentation, please document condition throughout progress notes and discharge summary. Thank You. CLINICAL INDICATORS - SIGNS / SYMPTOMS / LABS Recurrent episode of bacteremia - Documented in PNs on 08/18 by TERRI REED MD initially polymicrobial now with Enterobacter with concerns for port - Documented in PNs on 08/18 by TERRI REED MD The bacteremia at this time is transient and is only Enterobacter - Documented in PNs on 08/18 by TERRI REED MD Elevated WBC 19.7 on 08/15 and 25.9 on 08/16 - Documented in Laboratory Temperature 103.3 F on 08/15 and 99.8 on 08/16 - Documented in vital Signs Pulse rate 116 on 08/15 and 123 on 08/16 - Documented in vital Signs Respiration rate 22 on 08/19 - Documented in vital Signs BP 100/52 on 08/17 - Documented in vital Signs RISK FACTORS PVD with Gangrene - Documented in PNs on 08/18 by TERRI REED MD Pancreatic cancer with metes lung and liver - Documented in PNs on 08/18 by TERRI REED MD TREATMENTS: We will repeat blood culture - Documented in PNs on 08/18 by TERRI REED MD monitoring second set blood culture and hopefully transitioning back to ciprofloxacin for discharge planning - Documented in Consult note on 08/17 by TERRI REED MD [employer] Non Morse Intercept Technician Crystal Reports Winform Viewer (This form is maintained as a part of the permanent medical record) 2014 [employer]. All Rights Reserved [email or web address] [not provided] MTDD
[2019-08-20] MEDS ORDERED: Multivit, Therapeutic 1 TAB PO SCH (09:00)
[2019-08-20] MEDS ORDERED: Fish Oil 1,000 MG CAP PO SCH (09:00)
[2019-08-20] MEDS ORDERED: Ferrous Sulfate 325 MG TAB PO SCH (09:00)
[2019-08-20] MEDS ORDERED: Niacin 500 MG TAB PO SCH (09:00)
[2019-08-20] MEDS ORDERED: Furosemide 20 MG TAB PO SCH (09:00)
[2019-08-20] MEDS ORDERED: HumuLIN 70/30 (300 UNITS/3 ML VIAL) SC SCH (09:00)
[2019-08-20] MEDS ORDERED: Loratadine 10 MG TAB PO SCH (09:00)
--- NOTE | 2019-08-21 01:56 | DIS ---
DATE OF ADMISSION: 08/14/2019 DATE OF DISCHARGE: 08/19/2019 PRINCIPAL DIAGNOSIS: Gangrenous right foot. SECONDARY DIAGNOSES: Enterobacter bacteremia, metastatic pancreatic cancer with hypercoagulable syndrome, and diabetes mellitus. PROCEDURE PERFORMED: Right below-knee amputation. HISTORY OF PRESENT ILLNESS AND HOSPITAL COURSE: The patient is a 59-year-old man, who manifested a hypercoagulable syndrome shortly after the diagnosis of metastatic pancreatic cancer this past fall. He developed acute ischemia of the right lower extremity, and rather heroic attempts at revascularizing it were undertaken. In-flow was adequately established at that time using femoral-femoral graft, but outflow could not be maintained with attempts at grafting further down failing. One of those harvest sites very distally failed to heal, and he began to demarcate dry gangrenous changes involving two of his toes. He rather precipitously, however, developed massive lower extremity swelling on both sides and dramatic progression of gangrenous changes involving the right foot. He underwent below-knee amputation. The following morning, he spiked a high fever and blood cultures grew an Enterobacter. He was initially started on Zosyn and then switched to ciprofloxacin. His fever promptly defervesced, although he did have some recurrence of some low-grade fever. However, over the ensuing few days, he began to justina overall decline and on the night of the , he began developing more swelling in his lower extremities and some mottling of the left foot. Overnight, this progressed and he developed mottling of the right stump. His INR was 3.9 on the same regimen that had been used as an outpatient, that had generally kept his INR at around 2.5. The patient's inquired about hospice, and arrangements were made to discuss things with them. They were accepted for transfer to inpatient hospice as a means of providing hospice care and providing adequate pain control. While they offered transfer that evening, it was delayed until the following morning, when his [id number] DNR paperwork could be signed. Job ID: [id number]
== END 2019-08-19 22:37 | disposition hospice, inpatient (51) | DRG 240 ==
LOC: SURG A 08-14 07:09 → UNDOADMIN 08-14 07:09 → SURG A 08-14 12:57 → UNDODISIN 08-19 17:50
PROVIDERS: ADMIT Family Medicine; ATTEND Thoracic Surgery (Cardiothoracic Vascular Surgery)
PROC: 0Y6H0Z3 Detachment at Right Lower Leg, Low, Open Approach (ICD-10-PCS; principal; 2019-08-14)
DX: E11.52 Type 2 diabetes mellitus with diabetic peripheral angiopathy with gangrene (principal); C25.9 Malignant neoplasm of pancreas, unspecified; D68.59 Other primary thrombophilia; I96 Gangrene, not elsewhere classified; C78.7 Secondary malignant neoplasm of liver and intrahepatic bile duct; R78.81 Bacteremia; C78.00 Secondary malignant neoplasm of unspecified lung; I70.221 Atherosclerosis of native arteries of extremities with rest pain, right leg; K21.9 Gastro-esophageal reflux disease without esophagitis; B96.89 Other specified bacterial agents as the cause of diseases classified elsewhere; E11.9 Type 2 diabetes mellitus without complications; E78.5 Hyperlipidemia, unspecified; Z85.46 Personal history of malignant neoplasm of prostate; Z90.49 Acquired absence of other specified parts of digestive tract; Z79.4 Long term (current) use of insulin; Z79.899 Other long term (current) drug therapy; Z87.891 Personal history of nicotine dependence
CPT/HCPCS: 36415; 36416; 80053; 85025; 85610; 85730; 87040; 87077; 87149; 87186; 88307; J0670; J1650; J1815; J1885; J2185; J2250; J2405; J2543; J2704; J3010; J3490